=== PATIENT | female | born 1940 | race Caucasian/White ===

== ENCOUNTER → 2022-06-19 09:19 | Outpatient (CLI) | payer MEDICARE, SELFPAY ==
--- NOTE | ~2022-06-19 | CT_ITS ---
EXAMINATION: CT brain wo con DATE: 06/19/2022 09:52 INDICATION: Mild cognitive impairment TECHNIQUE: Computed tomography (CT) of the head was performed without intravenous contrast. Sagittal and coronal reconstructions were performed. The mA was adjusted according to patient size. Iterative reconstruction technique was employed. The dose-length product was 599.57 mGy-cm. COMPARISON: None FINDINGS: No acute intracranial hemorrhage, acute infarction or abnormal extra axial fluid collection. There is moderate scattered white matter hypoattenuation consistent with chronic small vessel ischemic diseas e. Symmetric prominence of the sulci and ventricles consistent with mild age-appropriate diffuse cere bral volume loss. No mass/mass effect. Dependently layering mucus in the left sphenoid sinus. The orb its and mastoid air cells are normal. Intracranial calcified cerebral atherosclerosis is noted. IMPRESSION: 1. No acute intracranial process. 2. Age-related changes including mild diffuse volume loss and moderate scattered white matter hypoatt enuation consistent with chronic small vessel ischemic disease. 3. Posteriorly layering mucus in the left sphenoid sinus. Correlate clinically for acute sinusitis. Reviewed, dictated and finalized at location L. IMPRESSION: 1. No acute intracranial process. 2. Age-related changes including mild diffuse volume loss and moderate scattere d white matter hypoattenuation consistent with chronic small vessel ischemic di sease. 3. Posteriorly layering mucus in the left sphenoid sinus. Correlate clinically for acute sinusitis.
== END ==
PROVIDERS: PCP Internal Medicine; Visit Provider Internal Medicine
DX: G31.84 Mild cognitive impairment of uncertain or unknown etiology (principal); R93.0 Abnormal findings on diagnostic imaging of skull and head, not elsewhere classified
CPT/HCPCS: 70450

== ENCOUNTER 2023-08-10 18:13 | Emergency (ER) | payer MEDICARE, SELFPAY ==
--- NOTE | ~2023-08-10 | XR_ITS ---
EXAMINATION: XR ribs LT 2V w CXR 2V Exam Date/Time: 08/10/2023 21:47 CDT HISTORY: pain status post fall Comparison: None. RESULT: Lines, tubes, and devices: None. Lungs and pleura: Senescent/emphysematous change, otherwise clear. Cardiothymic silhouette: Stable. Other: No acute osseous or upper abdominal finding. Decreased mineralization. IMPRESSION: No acute cardiopulmonary process. No acute osseous finding in the ribs. Reviewed, dictated and finalized at location K.
[2023-08-10 18:15] VITALS: BP 189/77; PULSE 81; RESP 14; TEMP 36.4; O2SAT 100
[2023-08-10] MEDS: HYDROcodone/acetaminophen (*CRX) 5-325 MG TABLET 1 TAB PO (21:59)
--- NOTE | 2023-08-10 22:29 | ED.GENADULT ---
HPI - General Adult General Chief complaint: Fall Stated complaint: fall Time Seen by Provider: 08/10/23 21:36 History of Present Illness HPI narrative: Patient is a 82-year-old female who presents emergency department with chief complaint of left-sided chest wall pain. Patient reports that she had a ground level fall and reports that she struck the left side of her chest. The patient reports she has pain with inspiration and pain with movement. Patient states she is concerned that she may have rib fracture. The patient reports she was ambulatory after the fall. Patient denies head injury denies loss of consciousness denies being on blood thinners. Related Data Allergies Allergy/AdvReac Type Severity Reaction Status Date / Time Contrast Media Allergy Unknown RASH Uncoded 08/10/23 18:14 Shrimp Allergy Unknown RASH Uncoded 08/10/23 18:14 Review of Systems Review of Systems: A 10 system review of systems was completed on the patient and is negative except for what is stated in the HPI. Nursing and ancillary documentation was reviewed. Exam Narrative: GENERAL: Well-appearing, well-nourished, and in no acute distress. HEAD: Normocephalic, atraumatic. EYES: PERRLA and EOMI. ENT: Nares clear, no rhinorrhea or epistaxis. Mucous membranes moist. NECK: Supple. CHEST: Clear to auscultation. No respiratory distress. Tenderness to palpation in the anterior and lateral chest wall on the left side no crepitance noted HEART: Regular rate and rhythm. No murmur heard. Normal peripheral pulses. ABDOMEN: Soft, nontender, nondistended, normal active bowel sounds. EXTREMITIES: Normal range of motion. No edema. SKIN: Warm, dry, no rash. NEURO: No focal deficits. Alert and oriented x3. PSYCH: Normal mood and affect. Course Vital Signs Vital signs: Vital Signs Temperature 36.4 C L 08/10/23 18:15 Pulse Rate 81 08/10/23 18:15 Respiratory Rate 14 08/10/23 18:15 Blood Pressure 189/77 H 08/10/23 18:15 Pulse Oximetry 100 08/10/23 18:15 Oxygen Delivery Room Air 08/10/23 18:15 Temperature 36.4 C L 08/10/23 18:15 Pulse Rate 81 08/10/23 18:15 Respiratory Rate 14 08/10/23 18:15 Blood Pressure 189/77 H 08/10/23 18:15 Pulse Oximetry 100 08/10/23 18:15 Oxygen Delivery Room Air 08/10/23 18:15 Medical Decision Making MDM Narrative Medical decision making narrative: Differential diagnosis includes rib fracture, rib contusion Rib x-ray showed no evidence of displaced rib fractures and no evidence of pneumothorax. Patient was given some additional pain control in the emergency department and will be discharged home with a prescription for tramadol the patient will also be given an incentive spirometer Vital Signs Vital Signs: Vital Signs Temperature 36.4 C L 08/10/23 18:15 Pulse Rate 81 08/10/23 18:15 Respiratory Rate 14 08/10/23 18:15 Blood Pressure 189/77 H 08/10/23 18:15 Pulse Oximetry 100 08/10/23 18:15 Oxygen Delivery Room Air 08/10/23 18:15 Temperature 36.4 C L 08/10/23 18:15 Pulse Rate 81 08/10/23 18:15 Respiratory Rate 14 08/10/23 18:15 Blood Pressure 189/77 H 08/10/23 18:15 Pulse Oximetry 100 08/10/23 18:15 Oxygen Delivery Room Air 08/10/23 18:15 Discharge Plan Discharge Clinical Impression: Chest wall contusion, Fall from ground level Patient Disposition: Home, Self-Care Condition: Stable Instructions: Antibiotic Form, Rib Contusion (ED) Prescriptions: New tramadol 50 mg tablet 50 mg PO Q6H PRN (Reason: pain) Qty: 12 0RF Follow-up/Referrals: Clemente,Alfa Langston MD [Primary Care Provider] - Time of Disposition: 22:35
== END 2023-08-10 23:00 | disposition home or self-care (01) ==
LOC: ANHED 22:45
PROVIDERS: Emergency Provider Emergency Medicine; PCP Internal Medicine
DX: S20.219A Contusion of unspecified front wall of thorax, initial encounter (principal); W01.0XXA Fall on same level from slipping, tripping and stumbling without subsequent striking against object, initial encounter
CPT/HCPCS: 71046; 71100; 99283; A9270

== ENCOUNTER 2023-11-11 22:35 | Observation (INO) | payer MEDICARE, SELFPAY ==
--- NOTE | ~2023-11-11 | XR_ITS ---
XR chest 1V portable Ordering provider: Nilesh Washington MD History: 82 years Female with . weakness HEADACHE . Comparison: August 10, 2023 FINDINGS: MEDIASTINUM: The cardiac silhouette is not enlarged. LUNGS: No infiltrates, effusions or pneumothorax. OTHER: No free air under the diaphragm. IMPRESSION: No acute cardiopulmonary pathology. Reviewed, dictated and finalized at location A.
--- NOTE | ~2023-11-11 | CT_ITS ---
CT brain wo con Ordering provider: Nilesh Washington MD History: 82 years Female with . altered mental status . Comparison: June 19, 2022 Technique: CT of the head without contrast. Radiation reduction technique utilized. The dose-length product was 529.67 mGy-cm. FINDINGS: BRAIN PARENCHYMA AND CSF SPACES: Mild leukoaraiosis and diffuse cortical atrophy. Mild atheromatous d isease. No midline shift, mass effect or hemorrhage. The brain parenchyma and CSF spaces are otherwi se normal. VISUALIZED PARANASAL SINUSES: Right maxillary and left sphenoid sinus disease. MASTOIDS: Well aerated. BONES: The bones appear intact. SOFT TISSUES: Visualized nasopharynx is normal. Superficial soft tissues are normal. IMPRESSION: No acute intracranial findings. Reviewed, dictated and finalized at location A.
[2023-11-11 22:38] VITALS: BP 174/76; PULSE 70; RESP 15; TEMP 37.1; O2SAT 98
--- NOTE | 2023-11-11 22:38 | ECG_ITS ---
Test Date: 2023-11-11 22:59:21 Measurements Intervals [place] Rate: 68 P: 45 [place]: 165 QRS: 17 QRSD: 93 T: 54 QT: 403 QTc: 431 Interpretive Statements SINUS RHYTHM NORMAL ELECTROCARDIOGRAM No previous ECG available for comparison Electronically Signed On 11-12-2023 07:20:52 CDT by Victor Hugo Griffiths M.D.
--- NOTE | 2023-11-11 22:52 | PC.NURSE ---
blood sugar was 150 at this time
[2023-11-11 22:53] VITALS: PULSE 70
--- NOTE | 2023-11-11 22:56 | ED.GENADULT ---
HPI - General Adult General Chief complaint: Weakness Stated complaint: altered mental status Time Seen by Provider: 11/11/23 22:38 History of Present Illness HPI narrative: Patient 82-year-old female who presents emergency department with chief complaint of altered mental status patient is from the [facility]. Per the facility the patient became confused and could not answer questions appropriately normally the patient is alert and oriented patient had no unilateral weakness but did have global weakness. Patient states that upon arrival the emergency department she is starting to feel better patient denies chest pain denies shortness of breath Related Data Allergies Allergy/AdvReac Type Severity Reaction Status Date / Time Contrast Media Allergy Unknown RASH Uncoded 08/10/23 18:14 Shrimp Allergy Unknown RASH Uncoded 08/10/23 18:14 Review of Systems Review of Systems: A 10 system review of systems was completed on the patient and is negative except for what is stated in the HPI. Nursing and ancillary documentation was reviewed. Exam Narrative: GENERAL: Well-appearing, well-nourished, and in no acute distress. HEAD: Normocephalic, atraumatic. EYES: PERRLA and EOMI. ENT: Nares clear, no rhinorrhea or epistaxis. Mucous membranes moist. NECK: Supple. CHEST: Clear to auscultation. No respiratory distress. HEART: Regular rate and rhythm. No murmur heard. Normal peripheral pulses. ABDOMEN: Soft, nontender, nondistended, normal active bowel sounds. EXTREMITIES: Normal range of motion. No edema. SKIN: Warm, dry, no rash. NEURO: No focal deficits. Alert and oriented x1. PSYCH: Normal mood and affect. Course Vital Signs Vital signs: Vital Signs Temperature 37.1 C 11/11/23 22:38 Pulse Rate 70 11/11/23 22:38 Respiratory Rate 15 11/11/23 22:38 Blood Pressure 174/76 H 11/11/23 22:38 Pulse Oximetry 98 11/11/23 22:38 Oxygen Delivery Room Air 11/11/23 22:38 Temperature 37.1 C 11/11/23 22:38 Pulse Rate 70 11/11/23 22:53 Respiratory Rate 15 11/11/23 22:38 Blood Pressure 174/76 H 11/11/23 22:38 Pulse Oximetry 98 11/11/23 22:38 Oxygen Delivery Room Air 11/11/23 22:38 Medical Decision Making MDM Narrative Medical decision making narrative: Differential diagnosis includes dementia, altered mental status, electrolyte abnormality, infection, Laboratory studies were obtained showed no acute abnormality CT head showed no evidence of acute intracranial pathology urinalysis showed no evidence UTI chest x-ray showed no focal infiltrate Vital Signs Vital Signs: Vital Signs Temperature 37.1 C 11/11/23 22:38 Pulse Rate 70 11/11/23 22:38 Respiratory Rate 15 11/11/23 22:38 Blood Pressure 174/76 H 11/11/23 22:38 Pulse Oximetry 98 11/11/23 22:38 Oxygen Delivery Room Air 11/11/23 22:38 Temperature 37.1 C 11/11/23 22:38 Pulse Rate 70 11/11/23 22:53 Respiratory Rate 15 11/11/23 22:38 Blood Pressure 174/76 H 11/11/23 22:38 Pulse Oximetry 98 11/11/23 22:38 Oxygen Delivery Room Air 11/11/23 22:38 Lab Data 11/11/23 22:54 11/11/23 22:54 Labs: Lab Results 11/11/23 11/11/23 11/12/23 Range/Units 22:51 22:54 02:05 WBC 5.8 (4.5-10.0) K/mm3 RBC 4.48 (4.2-5.4) M/mm3 Hgb 14.5 (12.0-15.0) g/dL Hct 43.3 (37.0-47.0) % MCV 96.7 (80-100) fl MCH 32.4 (26-34) pg MCHC 33.5 (32-36) g/dl RDW 12.3 (11.5-14.5) % Plt Count 180 (150-375) k/mm3 MPV 10.2 (7.4-10.4) fl Immature Gran % (Auto) 0.3 (0-0.5) % Neut % (Auto) 54.0 (45.5-73.1) % Lymph % (Auto) 33.3 (18.3-44.2) % [place] % (Auto) 9.2 H (2.6-8.5) % Eos % (Auto) 2.3 (0-4.4) % Baso % (Auto) 0.9 (0.2-1.2) % Lymph # (Auto) 1.92 (0.9-3.2) K/mm3 [place] # (Auto) 0.5 (0.1-0.6) K/mm3 Eos # (Auto) 0.1 (0-0.3) K/mm3 Baso # (Auto) 0.1 (0.0-0.1) K/mm
[2023-11-11 22:59] LABS: Glucose Point of Care 150 mg/dl (65-105)
[2023-11-11 23:00] VITALS: BP 163/89; PULSE 68; RESP 12; O2SAT 95
[2023-11-11 23:02] LABS: Basophils Absolute Auto 0.1 K/mm3 (0.0-0.1); Basophils Percent Auto 0.9 % (0.2-1.2); Eosinophils Absolute Auto 0.1 K/mm3 (0-0.3); Eosinophils Percent Auto 2.3 % (0-4.4); Hematocrit 43.3 % (37.0-47.0); Hemoglobin 14.5 g/dL (12.0-15.0); Immature Granulocyte Absolute 0.02 K/mm3 (0.00-0.031); Immature Granulocyte Percent A 0.3 % (0-0.5); Lymphocytes Absolute Auto 1.92 K/mm3 (0.9-3.2); Lymphocytes Percent Auto 33.3 % (18.3-44.2); Mean Corpuscular HGB Conc 33.5 g/dl (32-36); Mean Corpuscular Hemoglobin 32.4 pg (26-34); Mean Corpuscular Volume 96.7 fl (80-100); Mean Platelet Volume 10.2 fl (7.4-10.4); Monocytes Absolute Auto 0.5 K/mm3 (0.1-0.6); Monocytes Percent Auto 9.2 % (2.6-8.5); Neutrophils Absolute Auto 3.1 K/mm3 (1.3-6.7); Platelet Count Result 180 k/mm3 (150-375); Red Blood Count 4.48 M/mm3 (4.2-5.4); Red Cell Distribution Width 12.3 % (11.5-14.5); White Blood Count 5.8 K/mm3 (4.5-10.0)
[2023-11-11] MEDS: SODIUM CHLORIDE 0.9% IV 1,000 ML 999 ML IV CONT (23:05)
[2023-11-11 23:11] LABS: Add Urine Microscopic? YES; Appearance Urine Clear (Clear); Bacteria Urine None Seen /hpf; Bilirubin Urine Negative (Negative); Blood Urine Negative (Negative); Color Urine Yellow (Yellow); Glucose Urine UA Negative (Negative); Ketones Urine Negative (Negative); Leukocyte Esterase Ur Trace LEU/UL (Negative); Nitrate Urine Negative (Negative); Non Pathogenic Casts 0-2; Protein Urine Negative (Negative); RBC Urine 0-2 /hpf (0-2); Specific Grav Ur 1.005 (1.001-1.035); Squamous Epithelial Cell Urine None Seen /hpf (Few); Urobilinogen Urine 0.2 mg/dL (<2.0); WBC Urine 0-5 /hpf (0-3); pH Urine 7.5 (5.0-9.0)
[2023-11-11 23:13] LABS: INR 0.9; Prothrombin Time 12.2 Seconds (11.1-14.7)
[2023-11-11 23:14] LABS: Partial Thromboplastin Time 25.9 Seconds (22.3-36.8)
[2023-11-11 23:15] LABS: Alanine Aminotransferase 19 U/L (6-35); Albumin Level 4.5 g/dL (3.5-5.1); Alkaline Phosphatase 62 U/L (38-126); Anion Gap 12 mmol/L (4-12); Aspartate Amino Transferase 26 U/L (14-36); Bilirubin,Total 0.6 mg/dL (0.2-1.3); Blood Urea Nitrogen 24 mg/dL (7-17); Calcium 9.4 mg/dL (8.4-10.2); Carbon Dioxide 23 mmol/L (22-30); Chloride 103 mmol/L (98-107); Estimated CRCL calculation 37 ml/min; Estimated Glomerular Filt Rate > 60; Glucose 150 mg/dL (65-110); Potassium 4.2 mmol/L (3.4-5.0); Sodium 138 mmol/L (137-145)
[2023-11-11 23:16] LABS: Lactic Acid Reflex 1.3 mmol/L (0.7-2.0)
[2023-11-11 23:18] LABS: Magnesium 1.9 mg/dL (1.6-2.3)
[2023-11-11 23:31] LABS: Troponin I 0.025 ng/mL (0.000-0.034)
[2023-11-11 23:44] LABS: Influenza A QL RT-PCR Negative (Negative); Influenza B QL RT-PCR Negative (Negative); RSV RNA, RT-PCR Negative (Negative); SARS-CoV-2 RNA PCR Negative (Negative)
[2023-11-12] VITALS (9 sets, daily range): BP systolic 158–173; BP diastolic 66–81; PULSE 66–84; RESP 10–20; TEMP 36.6; O2SAT 95–100; BMI 19.4
--- NOTE | 2023-11-12 01:40 | PC.NURSE ---
pure wick placed on pt at this time. Full Linen change, depend changed.
[2023-11-12] MEDS: ACETAMINOPHEN 500 MG TABLET 1000 MG PO (02:00)
--- NOTE | 2023-11-12 02:10 | ECG_ITS ---
Test Date: 2023-11-12 02:10:45 Measurements Intervals [place] Rate: 67 P: 32 [place]: 143 QRS: 17 QRSD: 94 T: 60 QT: 404 QTc: 427 Interpretive Statements SINUS RHYTHM NORMAL ELECTROCARDIOGRAM Compared to ECG 11/11/2023 22:59:21 No significant changes Electronically Signed On 11-13-2023 13:22:26 CDT by Victor Hugo Griffiths M.D.
[2023-11-12 02:37] LABS: Troponin I 0.025 ng/mL (0.000-0.034)
--- NOTE | 2023-11-12 02:47 | PC.NURSE ---
K @ [facility]
--- NOTE | 2023-11-12 05:53 | ADMGEN ---
This patient, Claudia Hernandez, was admitted to Medical Room 346-01. Patient/family oriented to hospital policies and general routines including ID bracelet, bed and alarms, visiting hours, pain management, procedures, bathroom and other care routines, personal items, smoking policy, room service/diet, and visiting hours. Information on how to activate the Rapid Response Team has been discussed. Patient/Family are encouraged to report perceived risks to care and to ask questions if they do not understand what they are told or what they should do.
--- NOTE | 2023-11-12 06:48 | PM.IMHP ---
H&P: HPI History of Present Illness Date/Time: 11/12/23 06:48 Chief Complaint: altered mental status Narrative: 82 year old female with past medical history of diabetes, HLD, and HTN presents to the hospital from [facility] for altered mental status. ED workup: CBC unremarkable. CMP unremarkable. Coags WNL. Lactic acid 1.3. Troponin WNL. Procal 0.0. Urinalysis nonconcerning for infection. Negative Flu/Covid/RSV. Chest XR: No acute cardiopulmonary pathology. Head CT: No acute intracranial findings. Blood cultures pending. [facility] Past Medical History Medical History (Updated 11/12/23 @ 07:08 by Magaly Barber PA-C) Essential hypertension Hyperlipidemia Type 2 diabetes mellitus Family History Family History (Updated 11/12/23 @ 06:06 by Leslye Etienne RN) Other Unknown family medical history Social History Social History Smoking status: Never smoker Alcohol intake: never Substance use: never Substance use type: does not use Do You Feel Safe in your Home?: Yes Lack of Transportation: No Lack of Food: Never True Current Housing: I Have Housing Concerned About Future Housing: No Difficulty Paying Gas/Electric Bills: No Difficulty Paying for Meds: No Currently Unemployed: No Education: High School Diploma/GED Difficulty w/ Childcare or Family Care: No Spiritual care concerns: No Meds Home Medications and Allergies Home Medications Medication Instructions Recorded Confirmed Type amlodipine 10 mg tablet 10 mg PO DAILY 11/12/23 11/12/23 History atorvastatin 10 mg tablet 10 mg PO DAILY 11/12/23 11/12/23 History cholecalciferol (vitamin D3) 25 25 mcg PO DAILY 11/12/23 11/12/23 History mcg (1,000 unit) tablet cyanocobalamin (vitamin B-12) 500 500 mcg PO DAILY 11/12/23 11/12/23 History mcg tablet donepezil 5 mg tablet 5 mg PO DAILY 11/12/23 11/12/23 History glimepiride 1 mg tablet 1 mg PO DAILY 11/12/23 11/12/23 History metformin 500 mg tablet 500 mg PO BID 11/12/23 11/12/23 History vitamin E (dl, acetate) 180 mg 180 mg PO DAILY 11/12/23 11/12/23 History (400 unit) capsule Allergies Allergy/AdvReac Type Severity Reaction Status Date / Time Contrast Media Allergy Unknown RASH Uncoded 08/10/23 18:14 Shrimp Allergy Unknown RASH Uncoded 08/10/23 18:14 Vital Signs Vital Signs - 24 hr 11/11/23 22:38 11/11/23 22:53 11/12/23 05:00 Temperature 98.7 F Pulse Rate 70 70 71 Respiratory Rate 15 15 Blood Pressure 174/76 H 159/72 H Pulse Oximetry 98 96 Oxygen Delivery Room Air 11/12/23 04:00 11/12/23 03:00 11/12/23 02:00 Temperature Pulse Rate 80 74 75 Respiratory Rate 14 11 L 16 Blood Pressure 173/74 H 158/71 H 166/81 H Pulse Oximetry 96 97 97 Oxygen Delivery 11/12/23 01:00 11/12/23 00:00 11/11/23 23:00 Temperature Pulse Rate 66 70 68 Respiratory Rate 10 L 16 12 Blood Pressure 164/72 H 170/78 H 163/89 H Pulse Oximetry 98 96 95 Oxygen Delivery 11/12/23 05:31 11/12/23 05:45 11/12/23 06:00 Temperature 97.9 F Pulse Rate 84 72 Respiratory Rate 17 20 Blood Pressure 159/72 H 173/77 H Pulse Oximetry 95 100 Oxygen Delivery Room Air Exam Narrative: AF General: well nourished, well-developed female in no acute respiratory distress who is nontoxic appearing, lying semi recumbent in bed. HEENT: Normocephalic. Atraumatic. Pupils equal round reactive to light. Extraocular movement intact. Sclera clear and anicteric. Nares patent. No oral lesions. Moist mucous membranes. Tongue is midline. Palate padmaja symmetrically. No facial asymmetry. Neck: Neck was supple. No dominant adenopathy, thyromegaly or masses. 2+ carotid upstrokes without bruits. Chest: Lungs are clear to auscultation bilaterlly. No wheezes or crackles. CV: Heart was regular rate and rhythm. S1-S2. No murmurs, gallops, or rubs. Abd: Abdomen was soft. Nontender. Nondistended. P
[2023-11-12 07:50] LABS: Alanine Aminotransferase 17 U/L (6-35); Albumin Level 4.2 g/dL (3.5-5.1); Alkaline Phosphatase 64 U/L (38-126); Anion Gap 11 mmol/L (4-12); Aspartate Amino Transferase 23 U/L (14-36); Bilirubin,Total 0.7 mg/dL (0.2-1.3); Blood Urea Nitrogen 16 mg/dL (7-17); Calcium 9.1 mg/dL (8.4-10.2); Carbon Dioxide 26 mmol/L (22-30); Chloride 103 mmol/L (98-107); Estimated CRCL calculation 41 ml/min; Estimated Glomerular Filt Rate > 60; Glucose 185 mg/dL (65-110); Sodium 140 mmol/L (137-145)
[2023-11-12 08:00] LABS: Glucose Point of Care 171 mg/dl (65-105)
[2023-11-12 08:01] LABS: Basophils Percent Auto 0.7 % (0.2-1.2); Eosinophils Absolute Auto 0.1 K/mm3 (0-0.3); Eosinophils Percent Auto 1.3 % (0-4.4); Hemoglobin 14.7 g/dL (12.0-15.0); Immature Granulocyte Absolute 0.01 K/mm3 (0.00-0.031); Immature Granulocyte Percent A 0.2 % (0-0.5); Lymphocytes Absolute Auto 0.96 K/mm3 (0.9-3.2); Lymphocytes Percent Auto 21.3 % (18.3-44.2); Mean Corpuscular HGB Conc 32.7 g/dl (32-36); Mean Corpuscular Hemoglobin 31.4 pg (26-34); Mean Corpuscular Volume 96.2 fl (80-100); Mean Platelet Volume 10.6 fl (7.4-10.4); Monocytes Absolute Auto 0.4 K/mm3 (0.1-0.6); Monocytes Percent Auto 8.4 % (2.6-8.5); Neutrophils Absolute Auto 3.1 K/mm3 (1.3-6.7); Neutrophils Percent Auto 68.1 % (45.5-73.1); Platelet Count Result 184 k/mm3 (150-375); Red Blood Count 4.68 M/mm3 (4.2-5.4); Red Cell Distribution Width 12.3 % (11.5-14.5); White Blood Count 4.5 K/mm3 (4.5-10.0)
[2023-11-12 08:11] LABS: Hemoglobin A1C 6.8 % (<5.7)
[2023-11-12] MEDS: GLIMEPIRIDE 1 MG TABLET PO (09:34)
[2023-11-12] MEDS: amLODIPine BESYLATE 10 MG TABLET PO (09:34)
[2023-11-12] MEDS: DONEPEZIL HCL 5 MG TABLET PO (09:34)
[2023-11-12] MEDS: CHOLECALCIFEROL 1,000 UNITS TABLET 1000 UNITS PO (09:34)
[2023-11-12] MEDS: ATORVASTATIN 10 MG TABLET PO (09:34)
[2023-11-12] MEDS: VITAMIN E 400 UNIT CAPSULE PO (09:34)
[2023-11-12] MEDS: CYANOCOBALAMIN 500 MCG TABLET PO (09:34)
[2023-11-12] MEDS: ENOXAPARIN 40 MG/0.4 ML SYRINGE SUB-Q (09:36)
[2023-11-12] MEDS: ACETAMINOPHEN 325 MG TABLET 650 MG PO (12:07)
[2023-11-12 12:08] LABS: Glucose Point of Care 297 mg/dl (65-105)
--- NOTE | 2023-11-12 12:16 | PC.NURSE ---
Family does not want an MRI done at this time. Hospitalist made aware.
[2023-11-12] MEDS: INSULIN ASPART (*BKC) 100 UNITS/ML SUB-Q (12:51)
--- NOTE | 2023-11-12 14:13 | PM.SD2 ---
Same Day Admit/Disch: HPI History of Present Illness Chief complaint: Altered mental status Narrative: Claudia Hernandez is a 82 year old female with past medical history of diabetes, HLD, and HTN presents to the hospital from [facility] for altered mental status. Called [facility] and they state that they found patient in the hallway, altered, not talking/possible slurred speech and unable to stand from a chair. They deny any unilateral weakness or facial droop. These symptoms prompted the facility to have patient come to the hospital. When patient arrived to the ED she was alert and oriented x1 without focal deficits or slurred speech. On assessment of patient she is now alert and oriented x 2-3 (baseline) without slurred speech. Unable to obtain a clear history from patient. She was able to say that she was walking to meet a friend when she had a mechanical fall. She denies hitting her head, LOC, or dizziness/lightheadedness prior to the fall. Patient states she was able to get herself up immediately after the fall. Discussed this with [facility] and they were unaware of patients fall. Per patient she does not remember being outside of another residents room or having difficulty standing. Discussed patient with both her son, jamey and daughter/POHelder Palma and they state that the patient will become intermittently more confused. They relate this to her blood glucose, stating that patient does not always eat enough and will have low blood glucose levels. They were interested in decreasing patients diabetes medication dosages. Patients glucose levels are currently elevated on the glimepiride and low dose insulin. Her a1c is 6.8 on her home regimen. Told the Minerva and Jamey that patient will need to follow up with her PCP in regards to the diabetes medications. They state understanding. Prior to discharge patient denies chest pain, shortness of breath, palpitations, nausea/vomiting and changes in bowel/bladder. She was able to ambulate throughout her room and down the fernandes independently without assistive devices. ED workup: Patient was afebrile with CBC and CMP that were unremarkable. Coagulation panel was WNL. Lactic acid was 1.3. Troponins were WNL. Procal negative. Urinalysis was nonconcerning for infection. Negative Flu/Covid/RSV. Chest XR: No acute cardiopulmonary pathology. Head CT: No acute intracranial findings. Blood cultures pending. Was planning to obtain a MRI to further evaluate, but after discussing with patients son, Jamey and daughter/POHelder Palma they decided to not pursue further imaging. [facility] Past Medical History Medical History (Updated 11/12/23 @ 14:42 by Magaly Barber PA-C) Essential hypertension Hyperlipidemia Type 2 diabetes mellitus Family History Family History (Updated 11/12/23 @ 06:06 by Leslye Etienne RN) Other Unknown family medical history Social History Social History (Updated 11/12/23 @ 14:56 by Magaly Barber PA-C) Social History: Patient is a . Has 3 children. Lives at [facility]. Years smoked: 3 Smoking status: Former smoker Tobacco type: cigarettes Second hand tobacco smoke exposure: No Alcohol intake: never Substance use: never Substance use type: does not use Do You Feel Safe in your Home?: Yes Lack of Transportation: No Lack of Food: Never True Current Housing: I Have Housing Concerned About Future Housing: No Difficulty Paying Gas/Electric Bills: No Difficulty Paying for Meds: No Currently Unemployed: No Education: High School Diploma/GED Difficulty w/ Childcare or Family Care: No Living arrangements: assisted living Occupation/Education: retired Gender identity (if verbalized by the patient): Female Sexual Orientation (if Verbalized by the Patient): Straight or Heterosexual Spiritual care concerns: No Same Day Admit/Disch: Med Pre-admit Medications Home Medications Medication Instruction
== END 2023-11-12 16:23 ==
LOC: ANHED 11-12 04:32 → ANH3MED 11-12 05:09
PROVIDERS: Admitting Provider Internal Medicine; Emergency Provider Emergency Medicine; PCP Internal Medicine; Visit Provider Student in an Organized Health Care Education/Training Program
DX: R41.82 Altered mental status, unspecified (principal); I10 Essential (primary) hypertension; E11.9 Type 2 diabetes mellitus without complications; E78.5 Hyperlipidemia, unspecified; Z87.891 Personal history of nicotine dependence; Z79.84 Long term (current) use of oral hypoglycemic drugs; Z20.822 Contact with and (suspected) exposure to COVID-19
CPT/HCPCS: 36415; 70450; 71045; 80053; 81001; 82948; 83036; 83605; 83735; 84145; 84443; 84484; 85025; 85610; 85730; 87040; 87077; 87181; 87637; 93005; 96360; 96361; 96372; 99285; A9270; G0378; J1650; J1815; J7030

== ENCOUNTER 2024-03-30 16:39 | Emergency (ER) | payer MEDICARE, SELFPAY ==
--- NOTE | ~2024-03-30 | XR_ITS ---
EXAMINATION: XR knee RT 3V DATE: 03/30/2024 17:14 INDICATION: Right knee pain. Fall. TECHNIQUE: 3 views of right knee were obtained. COMPARISON: None. FINDINGS: Bone alignment is normal. No fracture. There is mild osteoarthritis of medial and patellofe moral compartments. No knee joint effusion. IMPRESSION: 1. Mild right knee osteoarthritis. Reviewed, dictated and finalized at location A. ASSET MANAGER
--- NOTE | ~2024-03-30 | XR_ITS ---
EXAMINATION: XR hand LT min 3V DATE: 03/30/2024 17:14 INDICATION: Left hand pain. TECHNIQUE: 3 views of left hand were obtained. COMPARISON: None. FINDINGS: Alignment is normal. No fracture. There is mild osteoarthritis of first carpometacarpal vianey nt and first interphalangeal joint. There is mild osteoarthritis of second proximal interphalangeal j oint. IMPRESSION: 1. Polyarticular osteoarthritis. Reviewed, dictated and finalized at location A. TORIAL SPECIALIST
--- NOTE | ~2024-03-30 | XR_ITS ---
EXAMINATION: XR wrist LT min 3V DATE: 03/30/2024 17:14 INDICATION: Left wrist pain. Fall. TECHNIQUE: 4 views of left wrist were obtained. COMPARISON: None. FINDINGS: Alignment is normal. No fracture. There is mild osteoarthritis of first carpometacarpal vianey nt. IMPRESSION: 1. Mild osteoarthritis of first carpometacarpal joint. Reviewed, dictated and finalized at location A. DOWN PLANNER
--- NOTE | ~2024-03-30 | XR_ITS ---
EXAMINATION: XR knee LT 3V DATE: 03/30/2024 17:14 INDICATION: Left knee pain. TECHNIQUE: 3 views of left knee were obtained. COMPARISON: None. FINDINGS: Alignment is normal. No fracture. There is mild osteoarthritis of patellofemoral compartmen t contrast by a tiny osteophyte. No knee joint effusion. IMPRESSION: 1. Mild left knee osteoarthritis. Reviewed, dictated and finalized at location A. EPOINT ADMINISTRATOR
--- NOTE | ~2024-03-30 | XR_ITS ---
EXAMINATION: XR elbow LT 2V DATE: 03/30/2024 17:14 INDICATION: Left elbow pain. Fall. TECHNIQUE: 2 views of left elbow were obtained. COMPARISON: None. FINDINGS: Alignment is normal. No fracture. Joint spaces are normal. There is an enthesophyte at late ral humeral epicondyle. No elbow joint effusion. IMPRESSION: 1. No fracture. Reviewed, dictated and finalized at location A. SETTER FOURDRINIER IMPRESSION: 1. No fracture.
[2024-03-30 16:44] VITALS: BP 164/70; PULSE 76; RESP 16; TEMP 36.8; O2SAT 100
--- NOTE | 2024-03-30 18:01 | ED.FALL ---
HPI - Fall General Chief Complaint: Fall Stated Complaint: fall Time Seen by Provider: 03/30/24 17:52 Source: patient Mode of arrival: ambulatory Limitations: no limitations History of Present Illness HPI Narrative: 83 YEARS OLD WHITE FEMALE REPORTS TRIPPING AND FALLING AT THE SIDEWALK, COMPLAINING OF LEFT HAND, LEFT WRIST AND LEFT ELBOW PAIN, PATIENT LANDED ON BOTH KNEES, DENIES HEAD INJURY OR NECK INJURY OR BACK INJURY. PATIENT CAME TO THE ED BY A BUS Related Data Home Medications ?Medication ?Instructions ?Recorded ?Confirmed ?Last Taken ?Type amlodipine 10 mg tablet 10 mg PO DAILY 11/12/23 11/12/23 Unknown History atorvastatin 10 mg tablet 10 mg PO DAILY 11/12/23 11/12/23 Unknown History cholecalciferol (vitamin D3) 25 25 mcg PO DAILY 11/12/23 11/12/23 Unknown History mcg (1,000 unit) tablet cyanocobalamin (vitamin B-12) 500 500 mcg PO DAILY 11/12/23 11/12/23 Unknown History mcg tablet donepezil 5 mg tablet 5 mg PO DAILY 11/12/23 11/12/23 Unknown History glimepiride 1 mg tablet 1 mg PO DAILY 11/12/23 11/12/23 Unknown History metformin 500 mg tablet 500 mg PO BID 11/12/23 11/12/23 Unknown History vitamin E (dl, acetate) 180 mg 180 mg PO DAILY 11/12/23 11/12/23 Unknown History (400 unit) capsule Allergies Allergy/AdvReac Type Severity Reaction Status Date / Time Contrast Media Allergy Unknown RASH Uncoded 08/10/23 18:14 Shrimp Allergy Unknown RASH Uncoded 08/10/23 18:14 Review of Systems Review of Systems: All systems reviewed & are unremarkable except as noted in HPI and below PMFSH Past Medical History Medical History Type 2 diabetes mellitus Hyperlipidemia Essential hypertension Family History Family History Other Unknown family medical history Social History Social History Social History: Patient is a . Has 3 children. Lives at [facility]. Years smoked: 3 Smoking status: Former smoker Tobacco type: cigarettes Second hand tobacco smoke exposure: No Alcohol intake: never Substance use: never Substance use type: does not use Do You Feel Safe in your Home?: Yes Lack of Transportation: No Lack of Food: Never True Current Housing: I Have Housing Concerned About Future Housing: No Difficulty Paying Gas/Electric Bills: No Difficulty Paying for Meds: No Currently Unemployed: No Education: High School Diploma/GED Difficulty w/ Childcare or Family Care: No Living arrangements: assisted living Occupation/Education: retired Gender identity (if verbalized by the patient): Female Sexual Orientation (if Verbalized by the Patient): Straight or Heterosexual Spiritual care concerns: No Exam Narrative: GENERAL APPEARANCE: WELL-DEVELOPED, WELL-NOURISHED SKIN: NORMAL COLOR HEAD: NORMOCEPHALIC, NONTRAUMATIC EYES: CLEAR CONJUNCTIVA ENT: OROPHARYNX NORMAL, EARS NORMAL, NOSE NORMAL NECK: SUPPLE, NONTENDER CHEST AND RESPIRATORY: AIRWAY PATENT, NO RESPIRATORY DISTRESS, NO ACCESSORY MUSCLE USE HEART: REGULAR RATE/RHYTHM ABDOMEN: SOFT, NONTENDER, NO ORGANOMEGALY, QUIET BOWEL SOUNDS VASCULAR: NORMAL PERIPHERAL PULSES, NORMAL CAPILLARY REFILL. MUSCULOSKELETAL: BRUISE LEFT HAND, PALMAR SIDE, SLIGHT LIMITED RANGE OF MOTION OF THE LEFT WRIST BECAUSE OF PAIN, NO BRUISES, NO SWELLING NO DEFORMITY, PAIN AT THE LEFT ELBOW POSTERIORLY, WITHOUT ANY BRUISES, SWELLING OR DEFORMITY NEUROLOGIC: ALERT AND ORIENTED ?3, ENGINEERING TEST SPECIALIST IS NORMAL TESTED, NO GROSS MOTOR DEFICIT Course Vital Signs Vital signs: Vital Signs Temperature 36.8 C 03/30/24 16:44 Pulse Rate 76 03/30/24 16:44 Respiratory Rate 16 03/30/24 16:44 Blood Pressure 164/70 H 03/30/24 16:44 Pulse Oximetry 100 03/30/24 16:44 Oxygen Delivery Room Air 03/30/24 16:44 Temperature 36.8 C 03/30/24 16:44 Pulse Rate 76 03/30/24 16:44 Respiratory Rate 16 03/30/24 16:44 Blood Pressure 164/70 H 03/30/24 16:44 Pulse Oximetry 100 03/30/24 16:44 Oxygen Delivery Room Air 03/30/24 16:44 MDM - Fall Imaging Data Radiologist's impression: Impressions Knee X-Ray 03/30/24 17:33 IMPRESSION: 1. Mild left knee osteoarthritis. Knee X-Ray 03/30/24 17:34 IMPRESSION: 1. Mild right knee osteoarthritis. Hand X-Ray 03/30/24 17:35 IMPRESSION: 1. Polyarticular osteoarthritis. Wrist X-Ray 03/30/24 17:35 IMPRESSION: 1. Mild osteoarthritis of first carpometacarpal joint. Elbow X-Ray 03/30/24 17:36 IMPRESSION: 1. No fracture. Critical Care Time Critical Care Time Critical Care Time: No Discharge Plan Discharge Clinical Impression: Fall, Contusion Patient Disposition: Home, Self-Care Condition: Stable Instructions: Contusion in Adults (ED), Fall Prevention (ED) Additional Instructions: RETURN IF SYMPTOMS ARE WORSENING , CALL YOUR FAMILY PHYSICIAN FOR APPOINTMENT, TAKE TYLENOL NEEDED FOR ACHES AND PAIN, CONTINUE HOME MEDICATIONS. Patient Language: Greek Prescriptions: No Action metformin 500 mg tablet 500 mg PO BID donepezil 5 mg tablet 5 mg PO DAILY atorvastatin 10 mg tablet 10 mg PO DAILY glimepiride 1 mg tablet 1 mg PO DAILY cyanocobalamin (vitamin B-12) 500 mcg tablet 500 mcg PO DAILY amlodipine 10 mg tablet 10 mg PO DAILY cholecalciferol (vitamin D3) 25 mcg (1,000 unit) tablet 25 mcg PO DAILY vitamin E (dl, acetate) 180 mg (400 unit) capsule 180 mg PO DAILY Follow-up/Referrals: Cornejo,Alfa Langston MD [Primary Care Provider] -
--- OUTSIDE RECORDS SUMMARY | 2024-04-06 20:27 | XMS_ITS | Continuity of Care Document ---
Author Organization [place] - [facility], [facility] Internal Med [facility] [address] [facility] [address] [place] [address] Assessment No assessment recorded. Plan of Treatment Reminders Order Date Submit Date Provider Last Modified By Organization Details Last Modified Time Details Appointments None recorded . Lab HbA1c (hemoglo bin A1c), blood 024 03/21/20 [facility], [address] [place], [address], 4 04:41:39 lipid panel, serum 024 03/21/20 [facility], [address] [place], [address], 4 04:41:38 CMP, serum or plasma 024 03/21/20 [facility], [address] [place], [address], 4 04:41:39 CBC w/ auto diff 024 03/21/20 [facility], [address] [place], [address], 4 04:41:39 Referral None recorded . Procedures None recorded . Surgeries None recorded . Imaging None recorded . Medication Orders None recorded . Patient TargetsNo targets recorded. Patient Instructions Encounter Date Encounter Id Patient Instructions Last Modified By Organization Details Last Modified Time 03/21/2024 [id number] Follow-up for hypertension, hyperlipidemia, type 2 diabetes and mild dementia. All clinically stable. Has been no significant progression of any medical problems at this time. Is doing quite well according to the daughter. Will continue on current medications. Check blood work consisting of CBC, CMP, lipid and hemoglobin A1c. Continue on current medications follow-up in four months. Follow Up: 4 Months Approximate Date: 07/19/2024 Portions of the record may have been created with voice recognition software. Occasional wrong-word or ? [id number]? substitutions may have occurred due to the inherent limitations of voice recognition software. Read the chart carefully and recognize, using context, where substitutions have occurred. Created: Alfa Cornejo M.D. 03.21.2024 02:08 PM [place] [id number] Not available 03/21/2024 15:08:20 Reason for Referral None Reported. Results Created Date Observation Date Name Description Value Unit Range Abnormal Flag Note LastModifiedBy Organization Detail LastModifiedTime 03/30/20 24 03/30/2024 XR, knee No observ ation record ed. [address], [address], 03/31/2024 06:44:29 03/30/20 24 03/30/2024 XR, knee No observ ation record ed. [address], [address], 03/31/2024 06:45:52 03/30/20 24 03/30/2024 XR, hand No observ ation record ed. [address], [address], 03/31/2024 06:46:14 03/30/20 24 03/30/2024 XR, wrist No observ ation record ed. [address], [address], 03/31/2024 06:46:32 03/30/20 24 03/30/2024 XR, elbow No observ ation record ed. [address], [address], 03/31/2024 06:46:48 Result Notes None recorded. Problems Name Problem SNOMED Code Status Onset Date Resolution Date Notes Provider Name and Address Organization Details Recorded Time Renewal of prescription Active 2021 Not Available [facility] 3 09:16:05 Serum creatinine above reference range 603027764 Active 2021 Not Available [facility] 3 09:16:05 Anterior epistaxis 398712171 Active 2021 Not Available [facility] 3 09:16:05 Ureteric stone 62372809 Active Not Available [facility] 3 09:16:05 Type 2 diabetes mellitus without complication 827576524 Active Not Available [facility] 3 09:16:05 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 Not Available [facility] 3 09:16:05 Cystitis 03905185 Active Not Available [facility] 3 09:16:05 Hyperlipidemi a 18055898 Active Not Available [facility] 3 09:16:05 Essential hypertension 52202323 Active Not Available [facility] 3 09:16:05 Serum vitamin B12 below reference range 006735730 Active 2022 Helena Pittman CMA null, [place] [facility] 3 16:41:38 Anemia 231920041 Active 2022 Ramona Roche null, [place] [facility] 3 15:41:01 Cobalamin deficiency 217416761 Active 2022 Tonja Brown MA null, [place] [facility] 3 12:29:12 Weight loss 80619608 Active 2022 Alfa Cornejo MD [address], [place], [address] , [facility] 3 17:07:55 Dementia 95407991 Active 2022 Alfa Cornejo MD [address], [place], [address] , [facility] 3 11:51:22 Vitamin D deficiency 95996380 Active 2022 Alfa Cornejo MD [address], [place], [address] , [facility] 3 11:55:38 Bacteremia 7940675 Active 2023 Alfa Cornejo MD [address], [place], [address] , [facility] 4 17:02:57 Headache 15183863 Active 2023 Helena Pittman CMA null, [facility] 4 12:39:35 Disturbance in speech 21910710 Active 2023 Helena Pittman CMA null, [facility] 4 14:39:16 Problem Notes None recorded. Procedures Surgical History Date Name Laterality Status Provider Name and Address Organization Details Recorded Time 11/23/19 Medicare Wellness CPT Code, subsequent completed Parisa Zacarias RN [facility] 11/23/2023 14:49:42 Hysterectomy completed Not Available [facility] 06/04/2022 09:14:24 Imaging Results None recorded. Procedure Notes None recorded. Medical Equipment None Reported. Allergies Allergen ID Allergen Name Allergen Category Reaction Reaction Severity Criticality Documentation Date Start Date Code Code System Note Provider Name and Address Organization Details Recorded Time 81631 shellfish derived food,medi cation rash Not available Not available 06/04/2022 Not Available [facility] 3 09:18:41 Medications Name Sig Start Date Stop Date Status Note LastModified by Organization Details LastModified Time metformin 500 mg tablet Take 1 tablet twice a day by oral route. active Not Available Not Available No t Available atorvastati n 20 mg tablet TAKE 1 TABLET BY MOUTH ONCE DAILY 08/31 completed Not Available Not Available Not Available donepezil 5 mg tablet TAKE 1 TABLET BY MOUTH ONCE DAILY active Not Available Not Available No t Available atorvastati n 10 mg tablet Take 1 tablet every day by oral route. active Not Available Not Available No t Available azithromyci n 250 mg tablet Take by oral route.2ta bs first day then 1 daily 02/19 completed Not Available Not Available Not Available ibuprofen 800 mg tablet TAKE 1 TABLET BY MOUTH EVERY 6 TO 8 HOURS WITH FOOD NEEDED FOR PAIN 06/09 completed Not Available Not Available Not Available hydrocodone 5 mg-acetamin ophen 325 mg tablet active Not Available Not Available No t Available Remeron 15 mg tablet Take 1 tablet every day by oral route in the evening. 07/19 completed Not Available Not Available Not Available ciprofloxac in 250 mg tablet active Not Available Not Available Not Available amlodipine 5 mg tablet Take 1 tablet by mouth once daily 07/17 completed Not Available Not Available Not Available valacyclovi r 500 mg tablet TAKE 2 TABLETS BY MOUTH EVERY 8 HOURS 11/14 completed Not Available Not Available Not Available ciprofloxac in 500 mg tablet Take 1 tablet every 12 hours by oral route for 5 days. active Not Available Not Available No t Available sulfamethox azole 800 mg-trimetho prim 160 mg tablet 02/15 completed Not Available Not Available Not Available aspirin 81 mg tablet,amari yed release Take 1 tablet every day by oral route. 03/26 completed Not Available Not Available Not Available tramadol 50 mg tablet TAKE 1 TABLET BY MOUTH EVERY 6 HOURS NEEDED FOR PAIN active Not Available Not Available No t Available acetaminoph en 500 mg tablet Take 2 tablets 3 times a day by oral route as needed. active Not Available Not Available No t Available glimepiride 1 mg tablet TAKE 1 TABLET BY MOUTH ONCE DAILY active Not Available Not Available No t Available cyanocobala min (vit B-12) 500 mcg tablet active Not Available Not Available N ot Available OneTouch Ultra Test strips USE 1 STRIP TO CHECK GLUCOSE TWICE DAILY active Not Available Not Available No t Available meclizine 25 mg tablet active Not Available Not Available Not Available diazepam 2 mg tablet 02/15 completed Not Available Not Available Not Available amlodipine 10 mg tablet TAKE 1 TABLET BY MOUTH ONCE DAILY active Not Available Not Available No t Available cephalexin 500 mg capsule TAKE 1 CAPSULE BY MOUTH THREE TIMES DAILY 06/09 completed Not Available Not Available Not Available cyanocobala min (vit B-12) 1,000 mcg/mL injection solution Inject 1 mL every month by subcutane ous route. 08/31 completed Not Available Not Available Not Available metformin 1,000 mg tablet TAKE 1 TABLET BY MOUTH TWICE DAILY 07/19 completed Not Available Not Available Not Available mupirocin 2 % topical ointment 02/19 completed Not Available Not Available Not Available levofloxaci n 500 mg tablet Take 1 tablet every 24 hours by oral route. active Not Available Not Available No t Available atenolol 50 mg tablet Take 1 tablet by mouth twice daily 07/17 completed Not Available Not Available Not Available vitamin E 268 mg (400 unit) capsule Take 1 capsule every day by oral route. 2018 active Not Available Not Available Not Avai lable naproxen 500 mg tablet Take 1 tablet twice a day by oral route. 03/26 completed Not Available Not Available Not Available Vitamin D3 25 mcg (1,000 unit) capsule Take 1 capsule every day by oral route. 2018 active Not Available Not Available Not Avai lable Crestor 10 mg tablet active Not Available Not Available No t Available escitalopra m 5 mg tablet Take 1 tablet every day by oral route. active Not Available Not Available No t Available Vitamin B-12 take 500 mg daily active Not Available Not Available No t Available Co Q-10 qd 02/19 completed Not Available Not Available Not Available Aspir-81 1 a day 03/21 completed Not Available Not Available Not Available Centrum Silver 1 a day 2012 active Not Available Not Available Not Avai lable Os-Ramakrishna 500 + D3 once daily 02/21 completed Not Available Not Available Not Available Zostavax (PF) 19,400 unit/0.65 mL subcutaneou s suspension active Not Available Not Available N ot Available cholecalcif filipe (vitamin D3) 25 mcg (1,000 unit) tablet 1 a day active Not Available Not Available Not Available vitamin E (dl, acetate) 180 mg (400 unit) capsule active Not Available Not Available Not Available OneTouch Delica Lancets to test blood sugars daily 01/04 completed Not Available Not Available Not Available Grisel Allergy 180 mg tablet Take 1 tablet every day by oral route for 6 days. 11/06 completed Not Available Not Available Not Available cranberry concentrate -ascorbic acid 4,200 mg-20 mg capsule twice a day 02/19 completed Not Available Not Available Not Available OneTouch Ultra Blue Test Strip USE 1 STRIP TO CHECK GLUCOSE ONCE DAILY active Not Available Not Available No t Available OneTouch Delica Plus Lancet 33 gauge USE EACH TO CHECK GLUCOSE ONCE DAILY active Not Available Not Available No t Available Vitals Date Recorded Body height Body weight Heart rate Body temperature Oxygen saturation Oxygen saturation in Arterial blood by Pulse oximetry Systolic blood pressure Diastolic blood pressure Provider Name and Address Organization Details Last Updated DateTime 4 157.48 cm 76528.2 7 g 76 /min 97 [degF] 98 % 98 % 142 mm[Hg] 80 mm[Hg] JOSE CARLOS Hare [place] [facility] 4 14:48:28 Social History Question Answer Notes LastModified by Organizat ion Details LastModified Time Tobacco Smoking Status Never Smoker Not Available [facility] 06/04/2022 09:14:10 Do You Have An Advance Directive? Yes [email or web address] Information not available 11/23/2023 What Is Your Level Of Alcohol Consumption? None MIGRATION.[id number] Information not available 06/04/2022 Are You Blind Or Do You Have Difficulty Seeing? No MIGRATION.591731 7593 Information not available 06/04/2022 In The 14 Days Before Symptom Onset, Have You Had Close Contact With A Laboratory-confir med COVID-19 While That Case Was Ill? No MIGRATION.802053 0546 Information not available 06/04/2022 In The 14 Days Before Symptom Onset, Have You Had Close Contact With A Person Who Is Under Investigation For COVID-19 While That Person Was Ill? No MIGRATION.189089 5661 Information not available 06/04/2022 Are You Deaf Or Do You Have Serious Difficulty Hearing? No MIGRATION.777714 9339 Information not available 06/04/2022 What Type Of Diet Are You Following? DIABETIC MIGRATION.[id number] 4816 Information not available 06/04/2022 Have There Been Any Changes To Your Family Or Social Situation? No MIGRATION.775484 2104 Information not available 06/04/2022 What Is The Fluoride Status Of Your Home? Unknown MIGRATION.695414 3694 Information not available 06/04/2022 Are There Any Guns Present In Your Home? No MIGRATION.305128 9321 Information not available 06/04/2022 Do You Use Insect Repellent Routinely? No MIGRATION.205454 5140 Information not available 06/04/2022 Where Do You Live? Other Asst Living [email or web address] Information not available 11/23/2023 Guns Present In The Home? No [email or web address] Information not available 11/23/2023 Are You Able To Care For Yourself? No [email or web address] Information not available 11/23/2023 Are You Blind Or Do Yo Have Difficulty Seeing? No [email or web address] Information not available 11/23/2023 Are You Deaf Or Do You Have Serious Difficulty Hearing? No [email or web address] Information not available 11/23/2023 Live Alone Of With Others? With Others [email or web address] Information not available 11/23/2023 Do You Have A Medical Power Of Gis Manager? Yes [email or web address] Information not available 11/23/2023 What Was The Date Of Your Most Recent Tobacco Screening? 11/23/2023 [email or web address] Information not available 11/23/2023 Do You Have Any Pets? No MIGRATION.239846 9588 Information not available 06/04/2022 Do You Use Your Seat Belt Or Car Seat Routinely? Yes MIGRATION.669598 9452 Information not available 06/04/2022 Do You Have Smoke And Carbon Monoxide Detectors In Your Home? Yes MIGRATION.386783 8231 Information not available 06/04/2022 Are You Passively Exposed To Smoke? No MIGRATION.502899 4062 Information not available 06/04/2022 Are There Any Smokers In Your House? No MIGRATION.549315 9854 Information not available 06/04/2022 Do You Use Sunscreen Routinely? No MIGRATION.667413 9879 Information not available 06/04/2022 Have You Recently Traveled Abroad? No MIGRATION.661145 2051 Information not available 06/04/2022 Sex: Unknown Functional Status Question Answer Note LastModified by Organizat ion Details LastModified Time Do you have difficulty walking or climbing stairs? No MIGRATION.6947688 026 Information not available 06/04/2022 Do you have transportation difficulties? No MIGRATION.5092051 026 Information not available 06/04/2022 Are you able to walk? YESWOREST MIGRATION.8704826 026 Information not available 06/04/2022 Do you have difficulty doing errands alone? Yes [email or web address] Information not available 11/23/2023 Are you able to care for yourself? No [email or web address] Information n ot available 11/23/2023 Do you have difficulty dressing or bathing? No MIGRATION.3805875 026 Information not available 06/04/2022 What is your exercise level? Occasional MIGRATION.8483578 026 Information not available 06/04/2022 Mental Status Question Answer Note LastModified by Organization D etails LastModified Time Do you have difficulty concentrating, remembering or making decisions? Yes [email or web address] Information no t available 11/23/2023 Family History Relationship Description Onset Age of this Age Resolved Age Notes LastModified by Organization Details LastModified Time Mother Heart disease [id number] Not available 06/04/2022 09:14:24 Mother Hypertensive disorder MIGRATION.[id number] [id number] Not available 06/04/2022 09:14:24 Unspecified Relation Diabetes mellitus MIGRATION.[id number] Not available 06/04/2022 09:14:24 Notes:Mother 94 infirmi ties Father 85 from CVA On brother and sister both living. Brother has a hx of CAD and CABG. Sister in good health Medical History Condition Response BLINDNESS N NERVE DISEASE N RHEUMATIC FEVER N BLADDER PROBLEMS N KIDNEY STONES N MRSA N OTHER # 1 N POLIO N LUNG DISEASE/DISORDER N HISTORY OF DRUG ABUSE N RADIATION / CHEMOTHERAPY N COPD N Other # 2 N BLOOD DISEASES N EAR OR HEARING PROBLEMS N MUMPS N SHINGLES N BOWEL PROBLEMS N DEPRESSION (INCLUDING POST ) N STROKE/TIA N ULCERS N BENIGN PROSTATIC HYPERPLASIA N MEASLES N HYPOTENSION N MYOCARDIAL INFARCTION N OBESITY N GERD/NAUSEA N ANEURYSM N URINARY/BLADDER/KIDNEY PROBLEMS N CORONARY ARTERY DISEASE (CAD) N ADDICTION CONCERNS N ENDOMETRIOSIS N Impotence N USE OF BLOOD THINNERS N SKIN PROBLEMS N GASTROINTESTINAL DISORDER N PERIPHERAL VASCULAR DISEASE N MUSCLE,JOINT OR BONE PROBLEMS N GASTROINTESTINAL BLEEDING N BLOOD CLOTS N ASTHMA N CATARACTS N ERECTILE DYSFUNCTION N VARICOSITIES N GI PROBLEMS N Low Testosterone N INFERTILITY N AIDS/HIV N CHEMOTHERAPY / RADIATION N LIVER DISEASE N MALE HYPOGONADISM N HYPERTENSION Y Deficiency N TOURETTE'S N ANXIETY DISORDER N BLOOD TRANSFUSION N ANEMIA/BLOOD DISORDER N CHRONIC EAR INFECTIONS N BRONCHITIS N TUBERCULOSIS N GLAUCOMA N FOOT PROBLEM N DIVERTICULITIS N CHICKENPOX N SLEEP APNEA N INFECTIOUS DISEASE N HEART ARRHYTHMIA N PROSTATE N INSOMNIA N HIGH CHOLESTEROL / HYPERLIPIDEMIA Y HYPERTHYROIDISM N EYE PROBLEMS N EDEMA N CHRONIC PAIN SYNDROME N HYPOTHYROIDISM N CAROTID BLOCKAGE N CONSTIPATION N BACK / NECK PROBLEMS N HAVE YOU BEEN HOSPITALIZED OR SEEN IN [facility] ER IN THE PAST YEAR ? N ATHEROSCLEROSIS N BREAST PROBLEMS N DIALYSIS N ECZEMA N OSTEOPOROSIS N ARTHRITIS N NO SIGNIFICANT PAST MEDICAL HISTORY N APPENDICITIS N DIABETES, TYPE Y BAD TEETH N ENT N HEARTBURN / REFLUX N AUTISM SPECTRUM DISORDER (ASD) N HEPATITIS / LIVER DISEASE N GOUT N SLEEP DISORDER N ALZHEIMER'S DISEASE N Brain Problems N HERPES N DEMENTIA N HEADACHES/MIGRAINES N SEIZURES/EPILEPSY N VASCULAR DISEASE N PACEMAKER N Blood Disorder N DIZZINESS N HEART DISEASE/HEART PROBLEMS N KIDNEY DISEASE N MULTIPLE SCLEROSIS N CARDIAC ARRHYTHMIA N CANCER: SPECIFY N ATRIAL FIBRILLATION N Gall Stones N PULMONARY EMBOLISM N AUTOIMMUNE DISEASE N Gynecological HistoryNo gynecological history recorded. Obstetrics History GPAL:G 0 P 0 0 0 0 Immunizations Vaccine Type Date Status Note Provider Nam e and Address Organization Details Recorded Time Influenza, split virus, trivalent, preservative 4 completed Not Available [facility] 06/04/2022 09:18:31 Influenza, split virus, trivalent, preservative 3 completed Not Available [facility] 06/04/2022 09:18:32 COVID-19, mRNA, LNP-S, PF, 30 mcg/0.3 mL dose 1 completed Not Available [facility] 06/04/2022 09:18:32 COVID-19 Non-US Vaccine, Product Unknown 1 completed Not Available [facility] 06/04/2022 09:18:32 COVID-19 Non-US Vaccine, Product Unknown 1 completed Not Available [facility] 06/04/2022 09:18:32 influenza, unspecified formulation 2 completed Not Available [facility] 06/04/2022 09:18:32 zoster live 5 completed Not Available [facility] 06/04/2022 09:18:32 Influenza, high-dose, quadrivalent, PF 2 completed Not Available [facility] 06/04/2022 09:18:32 Influenza, high-dose, quadrivalent, PF 0 completed Not Available [facility] 06/04/2022 09:18:32 Influenza, high-dose, trivalent, PF 9 completed Not Available [facility] 06/04/2022 09:18:33 pneumococcal polysaccharide PPV23 9 completed Not Available [facility] 06/04/2022 09:18:33 Influenza, high-dose, trivalent, PF 8 completed Not Available [facility] 06/04/2022 09:18:33 Influenza, high-dose, trivalent, PF 6 completed Not Available [facility] 06/04/2022 09:18:33 Influenza, high-dose, trivalent, PF 5 completed Not Available [facility] 06/04/2022 09:18:33 Pneumococcal conjugate PCV 13 4 completed Not Available [facility] 06/04/2022 09:18:33 Pneumococcal conjugate PCV20, polysaccharide QSQ195 conjugate, adjuvant, PF 4 completed Alfa Cornejo MD [address] [facility] [facility] [address], [place], [address], [facility] 03/21/2024 15:02:14 Past Encounters Encounter ID Performer Location Encounter Start Date Encounter Closed Date Diagnosis/Indication Diagnosis SNOMED-CT Code Diagnosis ICD10 Code [id number] Alfa Cornejo MD [facility] Internal Med [facility] [address] [facility] [address] [place] [address] 03/21/2024 14:37:00 03/21/2024 15:15:40 Administration of pneumococcal vaccine 81300822 Z23 Essential hypertension 82744706 I10 Hyperlipidemia 94599620 E78.5 Type 2 erik betes mellitus without complication 980113150 E11.9 Dementia 45865663 F03.90 Health Concerns Section Related Observation LastModified by Organization Detai ls LastModified Time None Recorded Concern Status LastModified by Organization Details LastModified Time None Recorded Payers Encounter Date Sequence Insurance Name Policy Number Policy Arthur Covered Member ID Arthur Member ID Guarantor Name 03/21/2024 1 [employer] (MEDICARE REPLACEMENT/A DVANTAGE - PPO) Claudia Hernandez [id number] Claudia Hernandez Notes Date Note Type Note Provider Name and Address Organization Details Recorded Time 4 text/html Patient Name: Claudia HernandezDate Of Service: Thursday ( 03.21.2024 ): 1940 Age: 83 There has been approximately a 9 lb weight gain since 11/23/2023. This represents approximately a 8.0% change in weight. Weight change attributable to lifestyle changes. Vital Signs:Blood Pressure: Sitting Rt. Arm 142/80Pulse: Sitting 76 /min and RegularRespiratory Rate: 16Height 62 in or 1.6 mWeight 122 lb or 55.3 kgBMI 22.3Temperature: 97 F or 36.1 CPulse Oximetry: 98 % at rest on no oxygen Chief Complaint: Addressed in HPI Problems or conditions discussed in the HPI were the only ones reviewed during the encounter.Only social and family history addressed in the HPI were reviewed during this encounter. Attendant(s): DaughterConstitutional and Systemic Symptoms:none Medication Reconciliation: from medication list. Ysdnwukjyfw70/16/2023: CT scan of the brain without contrast showed age-related changes and mild diffuse volume loss and moderate scattered white matter hypo attenuation consistent with chronic small-vessel ischemic disease. Some mucus clearing as noted in the left sphenoid sinus. History of Present Illness #1. Essential Hypertension: Stage: Stage I Interval Neurological Complaints no headaches, dizziness, weakness, visual changes, ataxia, aphasia and apraxia. No shortness of breath, orthopnea or cardiovascular symptoms. No other symptoms related to end organ damage. Pressure has been under excellent control. Currently normal. No other end organ symptoms or findings. Therapy reviewed regarding management of hypertension and includes salt restriction and Norvasc. #2. Type I Hypercholesterolaemia: Currently taking medication and tolerating well. No interval complaints of any muscle pain or arthralgia. No significant liver changes with medications. Last lipid panel: excellent control. Therapy reviewed regarding treatment of cholesterol management and include diet and Lipitor. #3. Type II Diabetes: Has had no polyuria polyphagia or polydipsia. Has had no hypoglycemic like responses. No new history of any numbness, tingling, weakness or visual problems. No nausea, anorexia or other constitutional symptoms. There has been no foot problems or non healing lesions. The last HAIC was DCCT HAIC: 6.6 Calculated MB mg%. CGM: No. Average blood sugars 125-150 mg%. Checking sugars : several times a week. Medication Types Include: Metformin and Sulfonylureas Secondary complications include none. Macro-vascular complications include none. Therapy reviewed regarding diabetic management and include Glimepiride and Glucophage Compliance: good Renal Protection: starting on a calcium juanita Lipid management: statins Urinary microalbumin: A1 . Ophthalmological: has seen eye doctor within the last year. Control: Good Control 6.2 - 7.0#4. Mild dementia clinically stable. Taking Aricept 5 mg daily and doing reasonably well. There has been no significant deterioration cognitive functioning. Active Medication ListEscitalopram 5 MG TABLET One DailyVitamin E 400 IU DailyVitamin D 1000 IU DailyGlucophage 500 MG One Twice A DayLipitor 10 MG TABLET, FILM COATED DailyNorvasc 10 MG (TABLET - ORAL) DailyGlimepiride 1 MG TABLET QdAricept 5 MG TABLET, FILM COATED Once Daily Adverse Drug Reactions ReviewedShellfish Unknown Vaccination and Immunization( ) 2016- PREVNAR 13 GC(X) 2021- INFLUENZA( ) 2019-02 PNEUMOVAX( ) 2023- PREVNAR 20(X) 2021-01 COVID PFIZER(X) 2021-01 COVID BOOSTER PFIZER Surgical [id number] Bladder [id number] Vaginal [id number] Lumpectomy Right Breast Preventative Testing( ) 11/23/2023 Albumin 3.9 G/DL( ) 11/23/2023 HAIC 6.6 % H( ) 06/13/2022 Micro Albumin 80.9 MG/L H( ) 11/24/2019 Mammogram( ) 11/24/2019 DEXA Scan 11/23/2021 Social HistoryDoes not smoke or drink Family HistoryMother 94 infirmitiesFather 85 from CVAOn brother and sister both living. Brother has a hx of CAD and CABG. Sister in good health TEST RESULT RANGE UNITSCOMPREHENSIVE METABOLIC PANEL Date: 11/23/2023SODIUM 140 137-145 MMOL/LPOTASSIUM 4.2 3.5-5.1 MMOL/LGLUCOSE 134 70-99 MG/DLBUN 37 8-19 MG/DLGFR 55CREATININE 0.97 0.66-1.25 MG/DLALKALINE PHOSPHATASE 55 38-126 U/LALANINE AMINOTRANSFERASE 18 0-35 U/LASPARTATE AMINOTRANSFERASE 24 15-37 U/LBILIRUBIN, TOTAL 0.30 0.20-1.30 MG/DLHEMOGLOBIN A1C Date: 11/23/2023HA1C 6.6 4.0-6.0 %LIPID PANEL Date: 4CHOLESTEROL 107 140-199 MG/DLTRIGLYCERIDES 149 0-150 MG/DLHDL CHOLESTEROL 49 40- MG/DLLDL CHOLESTEROL, CALCULATED 28 0-130 MG/DLCBC/COMPLETE BLD COUNT W/DIFF Date: 07/29/2023WHITE BLOOD CELLS 3.8 4.2-10.8 X10'3/ULHEMOGLOBIN 15.1 12.0-15.6 G/DLHEMATOCRIT 45.2 35.7-45.7 %PLATELETS 156 150-400 X10'3/UL Alfa Cornejo MD [address] [facility] [address], [place], [address], [place] [facility] 03/21/2024 15:08:42 OBGyn Episode No OBEpisode recorded.
--- OUTSIDE RECORDS SUMMARY | 2024-04-06 20:27 | XMS_ITS | CONTINUITY OF CARE DOCUMENT ---
Author Name sotero bey Address Unknown Organization [facility] Address [address] [place] [address] Phone [phone] Care Team Providers Care [employer] Screen Watcher Name Role Phone Sreekanth FRASER, Lyudmila Unavailable [phone] PAWAN FORMAN MD Unavailable PAWAN FORMAN MD Unavailable PROBLEMS Condition Status Date Provider Notes Near syncope and fall active Lyudmila Ortiz Chest discomfort nl echo , s tress nuclear 04/2021 active Lyudmila Stack MD Dizziness- sinus carrie on ho lter , nl carotids 04/27 active Lyudmila Stack MD Diabetes mellitus, type 2 active Lyudmila murguia MD Essential hypertension active Lyudmila Stack MD ENCOUNTERS Date Type Provider Location Encounter Diag nosis - In-person encounter Office Visit Lyudmila Stack MD [facility] - In-person encounter Office Visit Lyudmila Stack MD [facility] - In-person encounter Office Visit Lyudmila Stack MD [facility] Dizziness- sinus carrie on holter , nl carotids 04/27Chest discomfort nl echo , stress nuclear 04/2021 - In-person encounter Office Visit Lyudmila Stack MD [facility] Essential hypertensionDiabetes mellitus, type 2Dizziness- sinus carrie on holter , nl carotids 04/27Chest discomfort nl echo , stress nuclear 04/2021Near syncope and fall VITAL SIGNS Date Observation Value Provider Body Mass Index (Ratio) 21.08 kg/m2 Ricky Sarmientoi blood pressure, cuff size large Pa denton [place] blood pressure, diastolic 84 mm[Hg] Pa denton [place] blood pressure, systolic 148 mm[Hg] [facility] helle [place] oxygen saturation, oximetry 99 % Riddhi [place] pulse rate 89 /min Riddhi Gonzáles angel respiratory rate E&M 16 /min Racheal blackwell [place] weight E&M 119 [lb_av] Riddhi Gonzáles angel height E&M 63 [in_i] Riddhi Eliecer ortiz Body Mass Index (Ratio) 21.25 kg/m2 Deshaun Flores blood pressure, cuff size small Pa denton [place] blood pressure, diastolic 90 mm[Hg] Pa denton [place] blood pressure, systolic 170 mm[Hg] [facility] [place] oxygen saturation, oximetry 98 % Riddhi [place] respiratory rate E&M 51 /min Racheal blackwell [place] pulse rate 16 /min Riddhi Eliecer ortiz weight E&M 120 [lb_av] Riddhi Travisvictorino ortiz height E&M 63 [in_i] Riddhi ortiz Body Mass Index (Ratio) 20.37 kg/m2 Ricky Ahmedzai blood pressure, diastolic 96 mm[Hg] Li nkLogic blood pressure, systolic 186 mm[Hg] Sindhu kLogic blood pressure, cuff size regular Sa ra Coats blood pressure, diastolic 96 mm[Hg] Sa ra Coats blood pressure, systolic 186 mm[Hg] Salomon a Coats oxygen saturation, oximetry 98 % Tonja Coats respiratory rate E&M 17 /min Tonja Si ms pulse rate 63 /min Tonja Coats weight E&M 115 [lb_av] Tonja Coats height E&M 63 [in_i] Tonja Coats ALLERGIES Allergy Name Onset Date Reaction Criticality Status SHELLFISH High Criticality active HISTORY OF MEDICATION USE Medication Status Instructions Dates Provider Indications Com ments atenolol 25 mg tablet completed - 4 Ricky Negrete metformin 1,000 mg tablet active Ricky Crowderzaluis amlodipine 10 mg tablet active Take 1 tablet by mouth once a day Esther Flores valacyclovir 500 mg tablet completed - 5 Ricky Lancemedzaluis atorvastatin 20 mg tablet active Ricky Crowderzai SOCIAL HISTORY Date Observation Value Provider social history reviewed E&M revi ewed - no changes required Ricky Negrete social history E&M S moking History: Narinder bolton is a former smoker. Lyudmila Stack MD cigarette use yes Riddhi Maldonado nd smoking status Former smoker Riddhi [facility] social history reviewed E&M revi ewed - no changes required Ricky Negrete social history reviewed E&M revi ewed - no changes required Esther Flores social history E&M S moking History: Narinder bolton is a former smoker. Esther Flores cigarette use yes Riddhi Maldonado nd smoking status Former smoker Riddhi [facility] social history E&M S moking History: Narinder bolton is a former smoker. Ricky Negrete social history reviewed E&M revi ewed - no changes required Ricky Negrete cigarette use yes Tonja Coats smoking status Former smoker Tonja Coats INSURANCE PROVIDERS Payer name Policy type / Coverage type [employer] party ID [employer] PPO O [id number] [facility] [employer] 333 [id number] ADVANCE DIRECTIVES Name Date DISCUSSED - NO DECISION MADE TREATMENT PLAN Date Name Performer [id number],S, Ricky Ahmedza i [id number],B, Ricky Ahmedza i [id number],S, Ricky Ahmedza i [id number],S, Ricky Ahmedza i [id number],B, Ricky Ahmedza i [id number],B, Lyudmila Stack MD [id number],S, Esther Flores [id number],W, Esther Flores [id number],S, Esther Flores [id number],S, Esther Flores [id number],S, Ricky Ahmedza i [id number],S, Ricky Ahmedza i [id number],S, Ricky Ahmedza i [id number],S, Ricky Ahmedza i [id number],S, Ricky Ahmedza i Cardiology Ricky Ahmedzai Cardiology Ricky Ahmedzai Cardiology Ricky Ahmedzai Cardiology Ricky Ahmedzai Cardiology Ricky Ahmedzai Cardiology Lyudmila Stack MD Cardiology Esther Flores Cardiology Lyudmila Stack MD Cardiology Esther Flores Cardiology Esther Flores Cardiology Ricky Ahmedzai Cardiology Ricky Ahmedzai Cardiology Ricky Ahmedzai Cardiology Ricky Ahmedzai Cardiology Ricky Ahmedzaluis Date Name Stress Regadenoson Monitor - Telemetry (Mobile Cardiac) Carotid Duplex Bilat eral Complete Echo HISTORY OF PROCEDURES Procedure Date Procedure Name Provider Procedure Notes S tatus EKG Lyudmila Stack MD completed
--- OUTSIDE RECORDS SUMMARY | 2024-04-06 20:27 | XMS_ITS | Data Portability ---
Author Organization [employer], Main Office Address [address] [place] [address] Assessment No assessment recorded. Plan of Treatment Reminders Order Date Submit Date Provider Last Modified By Organization Details Last Modified Time Details Appointments None recorded. Lab HbA1c (hemoglob in A1c), blood 023 023 [email or web address] [facility] Outpatient Lab, [address] [place], [address], 3 09:40:32 vitamin B12, serum 023 023 [facility] Out[facility], [address] [place], [address], 3 19:19:18 vitamin D, 25-hydrox y, total, serum 023 023 [email or web address] [facility] Out[facility] Lab, [address] [place], [address], 4 09:41:13 HbA1c (hemoglob in A1c), blood 023 023 [facility], [address] [place], [address], 4 09:41:13 CBC w/ auto diff 023 023 [facility] Out[facility], [address] [place], [address], 3 15:38:53 lipid panel, serum 023 023 [facility] Out[facility], [address] [place], [address], 3 18:45:07 CMP, serum or plasma 023 023 [facility] Out[facility] Lab, [address] [place], [address], 3 18:45:13 TSH, serum or plasma 023 023 [facility] Out[facility] Lab, [address] [place], [address], 3 18:47:45 T4, free, serum 023 023 [facility] Outpatient Lab, [address] [place], [address], 3 18:45:33 vitamin B12, serum [id number] [place] [address] - Outpatient Lab, [address] [place], [address], 4 16:34:30 HbA1c (hemoglob in A1c), blood [id number] [place] [address] Outpatient Lab, [address] [place] [address], [address], 4 16:34:30 CBC w/ auto diff [id number] [place] [address] - Outpatient Lab, [address] [place], [address], 4 16:34:29 lipid panel, serum [id number] [place] [address] Outpatient Lab, [address] [place], [address], 4 16:34:29 CMP, serum or plasma [id number] [place] [address] - Outpatient Lab, [address] [place] [address] [place], [address], 4 16:34:29 TSH, serum or plasma [id number] Outpatient Lab, [address] [place] [address], [address], 4 16:34:30 T4, free, serum [id number] Outpatient Lab, [address] [place] [address], [address], 4 16:34:30 HbA1c (hemoglob in A1c), blood [id number] Outpatient Lab, [address] [place] [address], [address], 4 16:32:36 lipid panel, serum 024 [facility] Out[facility] Lab, [address] [place], [address], 4 18:15:24 CMP, serum or plasma 024 [facility] Out[facility] Lab, [address] [place] [address], [address], 4 18:15:31 HbA1c (hemoglob in A1c), blood 024 [facility] Outpatient Lab, [address] [place] [address], [address], 4 04:41:39 lipid panel, serum 024 [facility] Outpatient Lab, [address] [place], [address], 4 04:41:38 CMP, serum or plasma 024 [facility] Outpatient Lab, [address] [place], [address], 4 04:41:39 CBC w/ auto diff 024 024 [facility] - Outpatient Lab, [address] [place], [address], 4 04:41:39 Referral None recorded. Procedures None recorded. Surgeries None recorded. Imaging None recorded. Medication Orders None recorded. Patient TargetsNo targets recorded. Patient Instructions Encounter Date Encounter Id Patient Instructions Last Modified By Organization Details Last Modified Time 11/20/2022 [id number] Hypertension -hyperlipidemia - type 2 diabetes -cobalamin deficiency. Continue on current Rx. Will check a hemoglobin A1c and B12 level. Instructed to reduce her metformin from 1000 mg daily to half tablet twice daily. Continue on current Rx follow-up in four months [email or web address] Not available 11/20/2022 12:12:19 03/12/2023 [id number] Follow-up hypertension, hyperlipidemia, type 2 diabetes and mild dementia all clinically stable. Will continue on current medications. Will check blood work consisting of CBC, CMP, lipid, thyroid, HAIC and vitamin-D level. Continue on current Rx follow-up in four months. FDA recommendations of a influenza, RSV, COVID, pneumococcal immunizations strongly advised. Portions of the record may have been created with voice recognition software. Occasional wrong-word or ? [id number]? substitutions may have occurred due to the inherent limitations of voice recognition software. Read the chart carefully and recognize, using context, where substitutions have occurred. [email or web address] Not available 03/12/2023 11:55:50 07/20/2023 [id number] Essential hypertension, hyperlipidemia type 2 diabetes and dementia. Clinically stable. Will check a CBC, CMP, lipid, thyroid and B12 level. Recommend the patient strongly consider the possibility of moving into an assisted living arrangement. She really is unable to care for herself at home because of severe memory problems and inability to perform complicated tasks. Will follow-up in four months. Next Appointment: 4 Months Approximate Date: 11/17/2023 Portions of the record may have been created with voice recognition software. Occasional wrong-word or ? [id number]? substitutions may have occurred due to the inherent limitations of voice recognition software. Read the chart carefully and recognize, using context, where substitutions have occurred. Not available 07/20/2023 15:11:24 11/23/2023 [id number] dementia rating scale-2* Not available 11/23/2023 15:08:29 alcohol misuse* [email or web address] Not available 11/23/2023 15:08:29 depression screening* [email or web address] Not available 11/23/2023 15:08:29 Timed Up and Go test (TUG)* [email or web address] Not available 11/23/2023 15:08:29 multi-dimensiona l health assessment questionnaire* Not available 11/23/2023 15:08:29 Personalized a lt Plan and Screening Recommendations Advance Directives - Do you have one? Yes Advance Directives - Do we have your advance directive on file in your health record? Primary Prevention/Interven tion (prevents or decreases the chance of common diseases from occurring) Smoking Risk: Non Smoker Alcohol Misuse Screening: Negative Weight: Appropriate Physical activity: Nutrition: Good Average Fall Risk (screened today): Low Intermediate Vaccines Pneumococcal: Ordered Recommended today Recommended today, but you have declined No further needed Influenza: Chronic Disease Risks Stroke: Low Risk Intermediate Risk I have no recommendations Act dax diagnosis, Continue current treatment plan Heart Attack: Low risk Intermediate Risk I have no recommendations Act dax diagnosis, Continue current treatment plan Clogging of the Arteries: Low risk Intermediate Risk I have no recommendations Act dax diagnosis, Continue current treatment plan Diabetes: Low Risk Intermediate Risk Secondary Prevention/Interven tion (detects treatable diseases before they may cause symptoms, disability, or ) Breast Cancer Screening with mammogram: Cervical/Uterine/Ov ivelisse Cancer Screening: Osteoporosis Screening: Date Screening Last Performed: Colon Cancer Screening: Date Screening Last Performed: Eye Disease Screening: Dementia Risk: Low I have no recommendations Depression Screening: Negative [email or web address] Not available 11/23/2023 14:56:48 Medicare [facility] s evaluation risk assessment stable. Follow-up essential hypertension, hyperlipidemia, type 2 diabetes and dementia all clinically stable. Will check some blood work consisting of a cholesterol panel, CMP and hemoglobin A1c. Will add some escitalopram 5 mg once daily to current regimen and see if there is any improvement in mood status. Follow-up in four months Next Appointment: 4 Months Approximate Date: 03/22/2024 Portions of the record may have been created with voice recognition software. Occasional wrong-word or ? [id number]? substitutions may have occurred due to the inherent limitations of voice recognition software. Read the chart carefully and recognize, using context, where substitutions have occurred. [email or web address] Not available 11/23/2023 15:08:10 03/21/2024 [id number] Follow-up for hypertension, hyperlipidemia, type 2 diabetes [...] voice recognition software. Occasional wrong-word or ? [id number]? substitutions may have occurred due to the inherent limitations of voice recognition software. Read the chart carefully and recognize, using context, where substitutions have occurred. Created: Alfa Cornejo M.D. 03.21.2024 02:08 PM [email or web address] Not available 03/21/2024 15:08:20 Reason for Referral None Reported. Results Created Date Observation Date Name Description Value Unit Range Abnormal Flag Note LastModifiedBy Organization Detail LastModifiedTime 11/21/19 23 11/20/2022 HEMOG LOBIN A1C HA1C 6.3 % 4.0-6. 0 high Diabe katja Scree carlo Crite phoebe: <5.7% Consi stent with absen ce of diabe katja 5.7-6 .4% Consi stent with incre ased risk for diabe katja (pred iabet es) >OR=6 .5% Consi stent with diabe katja REFER ENCE: Diabe katja Care 2016, 39(Nicole ppl.1 ):s13 -s22 Not Available [facility] (Lab) [address] [place], [address], 11/20/2022 16:02:50 11/21/19 23 11/20/2022 VITAM IN B12 (TALIA SY ) vb12 331 pg/mL 239-93 1 Not Available [facility] (Lab) [address] [place], [address], 11/20/2022 19:19:18 03/12/20 23 03/12/2023 CBC/C OMPLE TE BLD COUNT W/DIF F white blood cells 4.6 x10'3 /uL 4.2-10 .8 Not Available [facility] (Lab) [address] [place], [address], 03/12/2023 15:38:53 03/12/20 23 03/12/2023 CBC/C OMPLE TE BLD COUNT W/DIF F red blood cells 4.58 x10'6 /uL 3.80-5 .20 Not Available [facility] (Lab) [address] [place], [address], 03/12/2023 15:38:53 03/12/20 23 03/12/2023 CBC/C OMPLE TE BLD COUNT W/DIF F hemoglobin 15.0 g/dL 12.0-1 5.6 Not Available [facility] (Lab) [address] [place], [address], 03/12/2023 15:38:53 03/12/20 23 03/12/2023 CBC/C OMPLE TE BLD COUNT W/DIF F hematocrit 45.8 % 35.7-4 5.7 high Not Available [facility] (Lab) [address] [place], [address], 03/12/2023 15:38:53 03/12/20 23 03/12/2023 CBC/C OMPLE TE BLD COUNT W/DIF F mean red cell volume 100.0 fL 82.0-9 9.0 high Not Available [facility] (Lab) [address] [place], [address], 03/12/2023 15:38:53 03/12/20 23 03/12/2023 CBC/C OMPLE TE BLD COUNT W/DIF F mean red cell hemoglobin 32.8 pg 27.0-3 3.0 Not Available [facility] (Lab) [address] [facility] [place], [address], 03/12/2023 15:38:53 03/12/20 23 03/12/2023 CBC/C OMPLE TE BLD COUNT W/DIF F mean RBC HGB concentratio n 32.8 g/dL 31.0-3 6.0 Not Available [facility] (Lab) [address] [place], [address], 03/12/2023 15:38:53 03/12/20 23 03/12/2023 CBC/C OMPLE TE BLD COUNT W/DIF F red cell distribution width 11.4 % 11.8-1 5.5 low Not Available [facility] (Lab) [address] [place], [address], 03/12/2023 15:38:53 03/12/20 23 03/12/2023 CBC/C OMPLE TE BLD COUNT W/DIF F platelets 225 x10'3 /uL 150-40 0 Not Available [facility] (Lab) [address] [place], [address], 03/12/2023 15:38:53 03/12/20 23 03/12/2023 CBC/C OMPLE TE BLD COUNT W/DIF F mean platelet volume 11.7 fL 9.0-12 .4 Not Available [facility] (Lab) [address] [place], [address], 03/12/2023 15:38:53 03/12/20 23 03/12/2023 CBC/C OMPLE TE BLD COUNT W/DIF F neutrophils 71.3 % 39.0-7 2.0 Not Available [facility] (Lab) [address] [place], [address], 03/12/2023 15:38:53 03/12/20 23 03/12/2023 CBC/C OMPLE TE BLD COUNT W/DIF F lymphocytes 20.0 % 16.0-4 7.0 Not Available [facility] (Lab) [address] [place], [address], 03/12/2023 15:38:53 03/12/20 23 03/12/2023 CBC/C OMPLE TE BLD COUNT W/DIF F monocytes 6.3 % 5.0-12 .0 Not Available [facility] (Lab) [address] [place], [address], 03/12/2023 15:38:53 03/12/20 23 03/12/2023 CBC/C OMPLE TE BLD COUNT W/DIF F eosinophils 1.1 % 1.0-7. 0 Not Available [facility] (Lab) [address] [place], [address], 03/12/2023 15:38:53 03/12/20 23 03/12/2023 CBC/C OMPLE TE BLD COUNT W/DIF F basophils 1.1 % 0.0-2. 0 Not Available [facility] (Lab) [address] [place], [address], 03/12/2023 15:38:53 03/12/20 23 03/12/2023 CBC/C OMPLE TE BLD COUNT W/DIF F immature granulocytes 0.2 % 0.00-0 .50 Not Available [facility] (Lab) [address] [place], [address], 03/12/2023 15:38:53 03/12/20 23 03/12/2023 CBC/C OMPLE TE BLD COUNT W/DIF F neutrophils, absolute count 3.29 x10'3 /uL 1.5-8. 0 Not Available [facility] (Lab) [address] [place], [address], 03/12/2023 15:38:53 03/12/20 03/12/2023 CBC/C OMPLE TE BLD COUNT W/DIF F lymphocytes, absolute count 0.92 x10'3 /uL 1.07-3 .43 low Not Available [facility] (Lab) [address] [place], [address], 03/12/2023 15:38:53 03/12/20 23 03/12/2023 CBC/C OMPLE TE BLD COUNT W/DIF F monocytes, absolute count 0.29 x10'3 /uL 0.29-0 .99 Not Available [facility] (Lab) [address] [place], [address], 03/12/2023 15:38:53 03/12/20 23 03/12/2023 CBC/C OMPLE TE BLD COUNT W/DIF F eosinophils, absolute count 0.05 x10'3 /uL 0.02-0 .53 Not Available [facility] (Lab) [address] [place], [address], 03/12/2023 15:38:53 03/12/20 23 03/12/2023 CBC/C OMPLE TE BLD COUNT W/DIF F basophils, absolute count 0.05 x10'3 /uL 0.01-0 .08 Not Available [facility] (Lab) [address] [place], [address], 03/12/2023 15:38:53 03/12/20 23 03/12/2023 CBC/C OMPLE TE BLD COUNT W/DIF F immature granulocytes ,absolute 0.01 x10'3 /uL 0.00-0 .05 Not Available [facility] (Lab) [address] [place], [address], 03/12/2023 15:38:53 03/12/20 23 03/12/2023 CBC/C OMPLE TE BLD COUNT W/DIF F nucleated red blood cells 0.0 % -0 Not Available [facility] (Lab) [address] [place], [address], 03/12/2023 15:38:53 03/12/20 23 03/12/2023 CBC/C OMPLE TE BLD COUNT W/DIF F NRBC# 0.00 x10'3 /uL Not Available [facility] (Lab) [address] [place], [address], 03/12/2023 15:38:53 03/12/2003/12/2023 VITAM IN D 25-HY DROXY [id number] 49.7 NG/mL 30-100 Vitam in D Statu s: Defic ient: <20 ng/mL Insuf ficie nt: 20-29 ng/mL Suffi cient : 30-10 0 ng/mL Not Available [facility] (Lab) [address] [place], [address], 03/12/2023 17:54:12 03/12/20 23 03/12/2023 LIPID PANEL cholesterol 150 mg/dL 140-19 9 NIH VALERIA NSUS RECOM MENDA TION FOR ZACKERY STERO L: ADULT CHILD LOW RISK: <200 <170 BORDE RLINE : <200- 239 ----- HIGH RISK: >240 >200 Not Available [facility] (Lab) [address] [place], [address], 03/12/2023 18:45:07 03/12/20 23 03/12/2023 LIPID PANEL triglyceride s 188 mg/dL 0-150 high NIH VALERIA NSUS REPOR T RECOM MENDA TION FOR TRIGL YCERI RAMAKRISHNA: ADULT CHILD LOW RISK: <150 ----- BODER LINE: 150-1 99 ----- HIGH RISK: >200 ----- Not Available [facility] (Lab) [address] [place], [address], 03/12/2023 18:45:07 03/12/20 23 03/12/2023 LIPID PANEL HDL cholesterol 44 mg/dL 40- Not Available [facility] (Lab) [address] [place], [address], 03/12/2023 18:45:07 03/12/2003/12/2023 LIPID PANEL LDL cholesterol, calculated 68 mg/dL 0-130 NIH VALERIA NSUS REPOR T RECOM MENDA TIONS FOR LDL: ADULT CHILD LOW RISK <130 <110 (OPTI MAL LDL) <100 ----- BORDE RLINE : 130-1 59 ----- HIGH RISK: >160 >130 A TRIGL YCERI DE RESUL T >400 INVAL IDATE S THE CALCU LATIO N FOR LDL FRACT IONAT ION - THE LDL RESUL T WILL NOT BE REPOR TRISTEN. Not Available [facility] (Lab) [address] [place], [address], 03/12/2023 18:45:07 03/12/20 23 03/12/2023 COMPR EHENS DAX METAB OLIC PANEL sodium 139 mmol/ L 137-14 5 Not Available [facility] (Lab) [address] [place], [address], 03/12/2023 18:45:13 03/12/20 23 03/12/2023 COMPR EHENS DAX METAB OLIC PANEL potassium 4.2 mmol/ L 3.5-5. 1 Not Available [facility] (Lab) [address] [place], [address], 03/12/2023 18:45:13 03/12/20 23 03/12/2023 COMPR EHENS DAX METAB OLIC PANEL chloride 101 mmol/ L 98-107 Not Available [facility] (Lab) [address] [place], [address], 03/12/2023 18:45:13 03/12/20 23 03/12/2023 COMPR EHENS DAX METAB OLIC PANEL carbon dioxide 32 mmol/ L 22-30 high Not Available [facility] (Lab) [address] [place], [address], 03/12/2023 18:45:13 12/07/20 23 03/12/2023 COMPR EHENS DAX METAB OLIC PANEL anion gap 10.2 mmol/ L 14-22 low Not Available [facility] (Lab) [address] [place], [address], 03/12/2023 18:45:13 03/12/20 23 03/12/2023 COMPR EHENS DAX METAB OLIC PANEL glucose 287 mg/dL 70-99 high Not Available [facility] (Lab) [address] [place], [address], 03/12/2023 18:45:13 03/12/20 23 03/12/2023 COMPR EHENS DAX METAB OLIC PANEL BUN 30 mg/dL 8-19 high Not Available [facility] (Lab) [address] [place], [address], 03/12/2023 18:45:13 03/12/20 23 03/12/2023 COMPR EHENS DAX METAB OLIC PANEL creatinine 0.93 mg/dL 0.66-1 .25 Not Available [facility] (Lab) [address] [place] [address], [address], 03/12/2023 18:45:13 03/12/20 23 03/12/2023 COMPR EHENS DAX METAB OLIC PANEL GFR 57 Refer ence Range : [place] ge GFR Healt hy Adult : >60 mL/mi n/1.7 3 m2 Chron ic Kidne y Disea se: 15-60 mL/mi n/1.7 3 m2 Kidne y Failu re: <15/m L/min /1.73 m2 www.n iddk. nih.g ov The MDRD study equat ion has not been valid ated in child belkis <18 years of age; pregn ant women ; the elder ly >85 years of age; or in some racia l or ethni c subgr oups, such as Hispa nics. Outsi de the valid ated yani eters , estim ated GFR is less accur ate, requi ring clini shital judgm ent on a case- by-ca se basis . Clini shital inter preta tion for other races and ages must be made by the clini telma. The MDRD study equat ion has not been valid ated for the evalu ation of serum creat inine relat ed to nutri chato l statu s or medic ation usage . For perso ns <18 years of age, a pedia tric GFR calcu lator is avail able on the [facility] websi te: https ://anoop w.kenyatta wangy.o rg/pr ofess ional s/kdo qi/gf r_cal culat or Not Available [facility] (Lab) [address] [place], [address], 03/12/2023 18:45:13 03/12/2003/12/2023 COMPR EHENS DAX METAB OLIC PANEL alkaline phosphatase 49 U/L 38-126 Not Available [facility] (Lab) [address] [place], [address], 03/12/2023 18:45:13 03/12/20 23 03/12/2023 COMPR EHENS DAX METAB OLIC PANEL alanine aminotransfe rase 19 U/L 0-35 Not Available [facility] (Lab) [address] [place], [address], 03/12/2023 18:45:13 03/12/20 23 03/12/2023 COMPR EHENS DAX METAB OLIC PANEL aspartate aminotransfe rase 64 U/L 15-37 high Not Available [facility] (Lab) [address] [place], [address], 03/12/2023 18:45:13 03/12/20 23 03/12/2023 COMPR EHENS DAX METAB OLIC PANEL bilirubin, total 0.60 mg/dL 0.20-1 .30 Not Available [facility] (Lab) [address] [place], [address], 03/12/2023 18:45:13 03/12/20 23 03/12/2023 COMPR EHENS DAX METAB OLIC PANEL calcium 9.8 mg/dL 8.4-10 .2 Not Available [facility] (Lab) [address] [place], [address], 03/12/2023 18:45:13 03/12/20 23 03/12/2023 COMPR EHENS DAX METAB OLIC PANEL total protein 8.1 g/dL 6.3-8. 2 Not Available [facility] (Lab) [address] [place], [address], 03/12/2023 18:45:13 03/12/20 23 03/12/2023 COMPR EHENS DAX METAB OLIC PANEL albumin 4.3 g/dL 3.0-4. 4 Not Available [facility] (Lab) [address] [place], [address], 03/12/2023 18:45:13 03/12/20 23 03/12/2023 COMPR EHENS DAX METAB OLIC PANEL globulin 3.8 g/dL 2.6-4. 2 Not Available [facility] (Lab) [address] [place], [address], 03/12/2023 18:45:13 03/12/20 23 03/12/2023 COMPR EHENS DAX METAB OLIC PANEL A/G ratio 1.1 ratio 1.0-2. 0 Not Available [facility] (Lab) [address] [place], [address], 03/12/2023 18:45:13 03/12/20 23 03/12/2023 T4 FREE free T4 1.04 NG/dL 0.78-2 .19 Not Available [facility] (Lab) [address] [place], [address], 03/12/2023 18:45:33 03/12/20 23 03/12/2023 TSH thyroid-stim ulating hormone 2.320 uIU/m L 0.465- 4.680 Not Available [facility] (Lab) [address] [place], [address], 03/12/2023 18:47:45 03/12/20 23 03/12/2023 HEMOG LOBIN A1C HA1C 7.1 % 4.0-6. 0 high Diabe katja Scree carlo Crite phoebe: <5.7% Consi stent with absen ce of diabe katja 5.7-6 .4% Consi stent with incre ased risk for diabe katja (pred iabet es) >OR=6 .5% Consi stent with diabe katja REFER ENCE: Diabe katja Care 2016, 39( ppl.1 ):s13 -s22 Not Available [facility] (Lab) [address] [place], [address], 03/12/2023 20:07:48 07/29/19 24 07/29/2023 CBC/C OMPLE TE BLD COUNT W/DIF F white blood cells 3.8 x10'3 /uL 4.2-10 .8 low Not Available [facility] (Lab) [address] [place], [address], 07/29/2023 13:22:40 07/29/19 24 07/29/2023 CBC/C OMPLE TE BLD COUNT W/DIF F red blood cells 4.74 x10'6 /uL 3.80-5 .20 Not Available [facility] (Lab) [address] [place], [address], 07/29/2023 13:22:40 07/29/19 24 07/29/2023 CBC/C OMPLE TE BLD COUNT W/DIF F hemoglobin 15.1 g/dL 12.0-1 5.6 Not Available [facility] (Lab) [address] [place], [address], 07/29/2023 13:22:40 07/29/19 24 07/29/2023 CBC/C OMPLE TE BLD COUNT W/DIF F hematocrit 45.2 % 35.7-4 5.7 Not Available [facility] (Lab) [address] [place], [address], 07/29/2023 13:22:40 07/29/1907/29/2023 CBC/C OMPLE TE BLD COUNT W/DIF F mean red cell volume 95.4 fL 82.0-9 9.0 Not Available [facility] (Lab) [address] [place], [address], 07/29/2023 13:22:40 07/29/1907/29/2023 CBC/C OMPLE TE BLD COUNT W/DIF F mean red cell hemoglobin 31.9 pg 27.0-3 3.0 Not Available [facility] (Lab) [address] [place], [address], 07/29/2023 13:22:40 07/29/1907/29/2023 CBC/C OMPLE TE BLD COUNT W/DIF F mean RBC HGB concentratio n 33.4 g/dL 31.0-3 6.0 Not Available [facility] (Lab) [address] [place], [address], 07/29/2023 13:22:40 07/29/1907/29/2023 CBC/C OMPLE TE BLD COUNT W/DIF F red cell distribution width 11.6 % 11.8-1 5.5 low Not Available [facility] (Lab) [address] [place], [address], 07/29/2023 13:22:40 07/29/1907/29/2023 CBC/C OMPLE TE BLD COUNT W/DIF F platelets 156 x10'3 /uL 150-40 0 Not Available [facility] (Lab) [address] [place], [address], 07/29/2023 13:22:40 07/29/19 24 07/29/2023 CBC/C OMPLE TE BLD COUNT W/DIF F mean platelet volume 11.5 fL 9.0-12 .4 Not Available [facility] (Lab) [address] [place], [address], 07/29/2023 13:22:40 07/29/19 24 07/29/2023 CBC/C OMPLE TE BLD COUNT W/DIF F neutrophils 53.3 % 39.0-7 2.0 Not Available [facility] (Lab) [address] [place], [address], 07/29/2023 13:22:40 07/29/1907/29/2023 CBC/C OMPLE TE BLD COUNT W/DIF F lymphocytes 33.2 % 16.0-4 7.0 Not Available [facility] (Lab) [address] [place], [address], 07/29/2023 13:22:40 07/29/19 24 07/29/2023 CBC/C OMPLE TE BLD COUNT W/DIF F monocytes 9.1 % 5.0-12 .0 Not Available [facility] (Lab) [address] [place], [address], 07/29/2023 13:22:40 07/29/1907/29/2023 CBC/C OMPLE TE BLD COUNT W/DIF F eosinophils 2.9 % 1.0-7. 0 Not Available [facility] (Lab) [address] [place], [address], 07/29/2023 13:22:40 07/29/1907/29/2023 CBC/C OMPLE TE BLD COUNT W/DIF F basophils 1.0 % 0.0-2. 0 Not Available [facility] (Lab) [address] [place], [address], 07/29/2023 13:22:40 07/29/1928 0707/29/2023 CBC/C OMPLE TE BLD COUNT W/DIF F immature granulocytes 0.5 % 0.00-0 .50 Not Available [facility] (Lab) [address] [place], [address], 07/29/2023 13:22:40 07/29/19 24 07/29/2023 CBC/C OMPLE TE BLD COUNT W/DIF F neutrophils, absolute count 2.04 x10'3 /uL 1.5-8. 0 Not Available [facility] (Lab) [address] [place], [address], 07/29/2023 13:22:40 07/29/19 24 07/29/2023 CBC/C OMPLE TE BLD COUNT W/DIF F lymphocytes, absolute count 1.27 x10'3 /uL 1.07-3 .43 Not Available [facility] (Lab) [address] [place], [address], 07/29/2023 13:22:40 07/29/19 24 07/29/2023 CBC/C OMPLE TE BLD COUNT W/DIF F monocytes, absolute count 0.35 x10'3 /uL 0.29-0 .99 Not Available [facility] (Lab) [address] [place], [address], 07/29/2023 13:22:40 07/29/19 24 07/29/2023 CBC/C OMPLE TE BLD COUNT W/DIF F eosinophils, absolute count 0.11 x10'3 /uL 0.02-0 .53 Not Available [facility] (Lab) [address] [place], [address], 07/29/2023 13:22:40 07/29/19 24 07/29/2023 CBC/C OMPLE TE BLD COUNT W/DIF F basophils, absolute count 0.04 x10'3 /uL 0.01-0 .08 Not Available [facility] (Lab) [address] [place], [address], 07/29/2023 13:22:40 07/29/19 24 07/29/2023 CBC/C OMPLE TE BLD COUNT W/DIF F immature granulocytes ,absolute 0.02 x10'3 /uL 0.00-0 .05 Not Available [facility] (Lab) [address] [place], [address], 07/29/2023 13:22:40 07/29/19 24 07/29/2023 CBC/C OMPLE TE BLD COUNT W/DIF F nucleated red blood cells 0.0 % -0 Not Available [facility] (Lab) [address] [place], [address], 07/29/2023 13:22:40 07/29/19 24 07/29/2023 CBC/C OMPLE TE BLD COUNT W/DIF F NRBC# 0.00 x10'3 /uL Not Available [facility] (Lab) [address] [place], [address], 07/29/2023 13:22:40 07/29/19 24 07/29/2023 LIPID PANEL cholesterol 133 mg/dL 140-19 9 low NIH VALERIA NSUS RECOM MENDA TION FOR ZACKERY STERO L: ADULT CHILD LOW RISK: <200 <170 BORDE RLINE : <200- 239 ----- HIGH RISK: >240 >200 Not Available [facility] (Lab) [address] [place], [address], 07/29/2023 13:48:39 07/29/1907/29/2023 LIPID PANEL triglyceride s 106 mg/dL 0-150 NIH VALERIA NSUS REPOR T RECOM MENDA TION FOR TRIGL YCERI RAMAKRISHNA: ADULT CHILD LOW RISK: <150 ----- BODER LINE: 150-1 99 ----- HIGH RISK: >200 ----- Not Available [facility] (Lab) [address] [place], [address], 07/29/2023 13:48:39 07/29/19 24 07/29/2023 LIPID PANEL HDL cholesterol 59 mg/dL 40- Not Available [facility] (Lab) [address] [place], [address], 07/29/2023 13:48:39 07/29/19 24 07/29/2023 LIPID PANEL LDL cholesterol, calculated 53 mg/dL 0-130 NIH VALERIA NSUS REPOR T RECOM MENDA TIONS FOR LDL: ADULT CHILD LOW RISK <130 <110 (OPTI MAL LDL) <100 ----- BORDE RLINE : 130-1 59 ----- HIGH RISK: >160 >130 A TRIGL YCERI DE RESUL T >400 INVAL IDATE S THE CALCU LATIO N FOR LDL FRACT IONAT ION - THE LDL RESUL T WILL NOT BE REPOR TRISTEN. Not Available [facility] (Lab) [address] [place], [address], 07/29/2023 13:48:39 07/29/19 24 07/29/2023 COMPR EHENS DAX METAB OLIC PANEL sodium 141 mmol/ L 137-14 5 Not Available [facility] (Lab) [address] [place], [address], 07/29/2023 13:48:46 07/29/19 24 07/29/2023 COMPR EHENS DAX METAB OLIC PANEL potassium 4.6 mmol/ L 3.5-5. 1 Not Available [facility] (Lab) [address] [place], [address], 07/29/2023 13:48:46 07/29/19 24 07/29/2023 COMPR EHENS DAX METAB OLIC PANEL chloride 105 mmol/ L 98-107 Not Available [facility] (Lab) [address] [place], [address], 07/29/2023 13:48:46 07/29/19 24 07/29/2023 COMPR EHENS DAX METAB OLIC PANEL carbon dioxide 32 mmol/ L 22-30 high Not Available [facility] (Lab) [address] [place], [address], 07/29/2023 13:48:46 07/29/19 24 07/29/2023 COMPR EHENS DAX METAB OLIC PANEL anion gap 8.6 mmol/ L 14-22 low Not Available [facility] (Lab) [address] [place], [address], 07/29/2023 13:48:46 07/29/19 24 07/29/2023 COMPR EHENS DAX METAB OLIC PANEL glucose 166 mg/dL 70-99 high Not Available [facility] (Lab) [address] [place], [address], 07/29/2023 13:48:46 07/29/19 24 07/29/2023 COMPR EHENS DAX METAB OLIC PANEL BUN 21 mg/dL 8-19 high Not Available [facility] (Lab) [address] [place], [address], 07/29/2023 13:48:46 07/29/19 24 07/29/2023 COMPR EHENS DAX METAB OLIC PANEL creatinine 0.95 mg/dL 0.66-1 .25 Not Available [facility] (Lab) [address] [place], [address], 07/29/2023 13:48:46 07/29/19 24 07/29/2023 COMPR EHENS DAX METAB OLIC PANEL GFR 56 Refer ence Range : [place] ge GFR Healt hy Adult : >60 mL/mi n/1.7 3 m2 Chron ic Kidne y Disea se: 15-60 mL/mi n/1.7 3 m2 Kidne y Failu re: <15/m L/min /1.73 m2 www.n iddk. nih.g ov The MDRD study equat ion has not been valid ated in child belkis <18 years of age; pregn ant women ; the elder ly >85 years of age; or in some racia l or ethni c subgr oups, such as Hispa nics. Outsi de the valid ated yani eters , estim ated GFR is less accur ate, requi ring clini shital judgm ent on a case- by-ca se basis . Clini shital inter preta tion for other races and ages must be made by the clini telma. The MDRD study equat ion has not been valid ated for the evalu ation of serum creat inine relat ed to nutri chato l statu s or medic ation usage . For perso ns <18 years of age, a pedia tric GFR calcu lator is avail able on the [facility] websi te: https ://anoop jones.kenyatta chappell.o purnima/pr ofess ional s/kdo qi/gf r_cal culat or Not Available [facility] (Lab) [address] [place], [address], 07/29/2023 13:48:46 07/29/19 24 07/29/2023 COMPR EHENS DAX METAB OLIC PANEL alkaline phosphatase 54 U/L 38-126 Not Available [facility] (Lab) [address] [place], [address], 07/29/2023 13:48:46 07/29/19 24 07/29/2023 COMPR EHENS DAX METAB OLIC PANEL alanine aminotransfe rase 21 U/L 0-35 Not Available [facility] (Lab) [address] [place], [address], 07/29/2023 13:48:46 07/29/19 24 07/29/2023 COMPR EHENS DAX METAB OLIC PANEL aspartate aminotransfe rase 30 U/L 15-37 Not Available [facility] (Lab) [address] [place], [address], 07/29/2023 13:48:46 07/29/19 24 07/29/2023 COMPR EHENS DAX METAB OLIC PANEL bilirubin, total 0.80 mg/dL 0.20-1 .30 Not Available [facility] (Lab) [address] [place], [address], 07/29/2023 13:48:46 07/29/19 24 07/29/2023 COMPR EHENS DAX METAB OLIC PANEL calcium 9.8 mg/dL 8.4-10 .2 Not Available [facility] (Lab) [address] [place], [address], 07/29/2023 13:48:46 07/29/19 24 07/29/2023 COMPR EHENS DAX METAB OLIC PANEL total protein 7.3 g/dL 6.3-8. 2 Not Available [facility] (Lab) [address] [place], [address], 07/29/2023 13:48:46 07/29/19 24 07/29/2023 COMPR EHENS DAX METAB OLIC PANEL albumin 4.4 g/dL 3.0-4. 4 Not Available [facility] (Lab) [address] [place], [address], 07/29/2023 13:48:46 07/29/19 24 07/29/2023 COMPR EHENS DAX METAB OLIC PANEL globulin 2.9 g/dL 2.6-4. 2 Not Available [facility] (Lab) [address] [place], [address], 07/29/2023 13:48:46 07/29/19 24 07/29/2023 COMPR EHENS DAX METAB OLIC PANEL A/G ratio 1.5 ratio 1.0-2. 0 Not Available [facility] (Lab) [address] [place], [address], 07/29/2023 13:48:46 07/29/19 24 07/29/2023 T4 FREE free T4 1.19 NG/dL 0.78-2 .19 Not Available [facility] (Lab) [address] [place], [address], 07/29/2023 14:31:42 07/29/19 24 07/29/2023 TSH thyroid-stim ulating hormone 2.070 uIU/m L 0.465- 4.680 Not Available [facility] (Lab) [address] [place], [address], 07/29/2023 14:43:13 07/29/19 24 07/29/2023 HEMOG LOBIN A1C HA1C 6.7 % 4.0-6. 0 high Diabe katja Scree carlo Crite phoebe: <5.7% Consi stent with absen ce of diabe katja 5.7-6 .4% Consi stent with incre ased risk for diabe katja (pred iabet es) >OR=6 .5% Consi stent with diabe katja REFER ENCE: Diabe katja Care 2016, 39(Nicole ppl.1 ):s13 -s22 Not Available [facility] (Lab) [address] [place], [address], 07/29/2023 14:46:43 07/29/19 24 07/29/2023 VITAM IN B12 (TALIA SY ) vb12 >1000 pg/mL 239-93 1 high Not Available [facility] (Lab) [address] [place], [address], 07/29/2023 15:45:18 11/23/19 24 11/23/2023 LIPID PANEL cholesterol 107 mg/dL 140-19 9 low NIH VALERIA NSUS RECOM MENDA TION FOR ZACKERY STERO L: ADULT CHILD LOW RISK: <200 <170 BORDE RLINE : <200- 239 ----- HIGH RISK: >240 >200 Not Available [facility] (Lab) [address] [place], [address], 11/23/2023 18:15:24 11/23/19 24 11/23/2023 LIPID PANEL triglyceride s 149 mg/dL 0-150 NIH VALERIA NSUS REPOR T RECOM MENDA TION FOR TRIGL YCERI RAMAKRISHNA: ADULT CHILD LOW RISK: <150 ----- BODER LINE: 150-1 99 ----- HIGH RISK: >200 ----- Not Available [facility] (Lab) [address] [place], [address], 11/23/2023 18:15:24 11/23/19 24 11/23/2023 LIPID PANEL HDL cholesterol 49 mg/dL 40- Not Available [facility] (Lab) [address] [place], [address], 11/23/2023 18:15:24 11/23/19 24 11/23/2023 LIPID PANEL LDL cholesterol, calculated 28 mg/dL 0-130 NIH VALERIA NSUS REPOR T RECOM MENDA TIONS FOR LDL: ADULT CHILD LOW RISK <130 <110 (OPTI MAL LDL) <100 ----- BORDE RLINE : 130-1 59 ----- HIGH RISK: >160 >130 A TRIGL YCERI DE RESUL T >400 INVAL IDATE S THE CALCU LATIO N FOR LDL FRACT IONAT ION - THE LDL RESUL T WILL NOT BE REPOR TRISTEN. Not Available [facility] (Lab) [address] [place], [address], 11/23/2023 18:15:24 11/23/19 24 11/23/2023 COMPR EHENS DAX METAB OLIC PANEL sodium 140 mmol/ L 137-14 5 Not Available [facility] (Lab) [address] [place], [address], 11/23/2023 18:15:31 11/23/19 24 11/23/2023 COMPR EHENS DAX METAB OLIC PANEL potassium 4.2 mmol/ L 3.5-5. 1 Not Available [facility] (Lab) [address] [place], [address], 11/23/2023 18:15:31 11/23/19 24 11/23/2023 COMPR EHENS DAX METAB OLIC PANEL chloride 106 mmol/ L 98-107 Not Available [facility] (Lab) [address] [place], [address], 11/23/2023 18:15:31 11/23/19 24 11/23/2023 COMPR EHENS DAX METAB OLIC PANEL carbon dioxide 26 mmol/ L 22-30 Not Available [facility] (Lab) [address] [place], [address], 11/23/2023 18:15:31 11/23/19 24 11/23/2023 COMPR EHENS DAX METAB OLIC PANEL anion gap 12.2 mmol/ L 14-22 low Not Available [facility] (Lab) [address] [place], [address], 11/23/2023 18:15:31 11/23/19 24 11/23/2023 COMPR EHENS DAX METAB OLIC PANEL glucose 134 mg/dL 70-99 high Not Available [facility] (Lab) [address] [place], [address], 11/23/2023 18:15:31 11/23/19 24 11/23/2023 COMPR EHENS DAX METAB OLIC PANEL BUN 37 mg/dL 8-19 high Not Available [facility] (Lab) [address] [place], [address], 11/23/2023 18:15:31 11/23/19 24 11/23/2023 COMPR EHENS DAX METAB OLIC PANEL creatinine 0.97 mg/dL 0.66-1 .25 Not Available [facility] (Lab) [address] [place], [address], 11/23/2023 18:15:31 11/23/19 24 11/23/2023 COMPR EHENS DAX METAB OLIC PANEL GFR 55 Refer ence Range : [place] ge GFR Healt hy Adult : >60 mL/mi n/1.7 3 m2 Chron ic Kidne y Disea se: 15-60 mL/mi n/1.7 3 m2 Kidne y Failu re: <15/m L/min /1.73 m2 www.n iddk. nih.g ov The MDRD study equat ion has not been valid ated in child belkis <18 years of age; pregn ant women ; the elder ly >85 years of age; or in some racia l or ethni c subgr oups, such as Hispa nics. Outsi de the valid ated yani eters , estim ated GFR is less accur ate, requi ring clini shital judgm ent on a case- by-ca se basis . Clini shital inter preta tion for other races and ages must be made by the clini telma. The MDRD study equat ion has not been valid ated for the evalu ation of serum creat inine relat ed to nutri chato l statu s or medic ation usage . For perso ns <18 years of age, a pedia tric GFR calcu lator is avail able on the [facility] websi te: https ://anoop chappell.yadi rg/pr ofess ional s/kdo qi/gf r_cal culat or Not Available [facility] (Lab) [address] [place], [address], 11/23/2023 18:15:31 11/23/19 24 11/23/2023 COMPR EHENS DAX METAB OLIC PANEL alkaline phosphatase 55 U/L 38-126 Not Available [facility] (Lab) [address] [place], [address], 11/23/2023 18:15:31 11/23/19 24 11/23/2023 COMPR EHENS DAX METAB OLIC PANEL alanine aminotransfe rase 18 U/L 0-35 Not Available [facility] (Lab) [address] [place], [address], 11/23/2023 18:15:31 11/23/19 24 11/23/2023 COMPR EHENS DAX METAB OLIC PANEL aspartate aminotransfe rase 24 U/L 15-37 Not Available [facility] (Lab) [address] [place], [address], 11/23/2023 18:15:31 11/23/19 24 11/23/2023 COMPR EHENS DAX METAB OLIC PANEL bilirubin, total 0.30 mg/dL 0.20-1 .30 Not Available [facility] (Lab) [address] [place], [address], 11/23/2023 18:15:31 11/23/19 24 11/23/2023 COMPR EHENS DAX METAB OLIC PANEL calcium 9.7 mg/dL 8.4-10 .2 Not Available [facility] (Lab) [address] [place], [address], 11/23/2023 18:15:31 11/23/19 24 11/23/2023 COMPR EHENS DAX METAB OLIC PANEL total protein 6.8 g/dL 6.3-8. 2 Not Available [facility] (Lab) [address] [place], [address], 11/23/2023 18:15:31 11/23/19 24 11/23/2023 COMPR EHENS DAX METAB OLIC PANEL albumin 3.9 g/dL 3.0-4. 4 Not Available [facility] (Lab) [address] [place], [address], 11/23/2023 18:15:31 11/23/19 24 11/23/2023 COMPR EHENS DAX METAB OLIC PANEL globulin 2.9 g/dL 2.6-4. 2 Not Available [facility] (Lab) [address] [place], [address], 11/23/2023 18:15:31 11/23/19 24 11/23/2023 COMPR EHENS DAX METAB OLIC PANEL A/G ratio 1.3 ratio 1.0-2. 0 Not Available [facility] (Lab) [address] [place], [address], 11/23/2023 18:15:31 11/23/19 24 11/23/2023 HEMOG LOBIN A1C HA1C 6.6 % 4.0-6. 0 high Diabe katja Scree carlo Crite phoebe: <5.7% Consi stent with absen ce of diabe katja 5.7-6 .4% Consi stent with incre ased risk for diabe katja (pred iabet es) >OR=6 .5% Consi stent with diabe katja REFER ENCE: Diabe katja Care 2016, 39(Nicole ppl.1 ):s13 -s22 Not Available [facility] (Lab) [address] [place], [address], 11/23/2023 20:13:45 08/10/19 24 08/10/2023 XR, chest , 1 view No observ ation record ed. [address] [address], [place], [address], 08/11/2023 07:52:46 11/12/19 24 11/11/2023 XR, chest , 2 view No observ ation record ed. [address] [address], [place], [address], 11/12/2023 07:39:29 11/12/19 24 11/11/2023 CT, brain , w/o contr ast No observ ation record ed. [address] [address], [place], [address], 11/12/2023 07:40:05 11/13/19 24 11/12/2023 lab* No observ ation record ed. [place] [id number] Not Available 2023 17:04:32 03/30/20 24 03/30/2024 XR, knee No observ ation record ed. [address] [facility], [place], [address], 03/31/2024 06:44:29 03/30/20 24 03/30/2024 XR, knee No observ ation record ed. [address] [facility] [address], [place], [address], 03/31/2024 06:45:52 03/30/20 24 03/30/2024 XR, hand No observ ation record ed. [address] [facility] [address], [place], [address], 03/31/2024 06:46:14 03/30/20 24 03/30/2024 XR, wrist No observ ation record ed. [address] [facility] [address], [place], [address], 03/31/2024 06:46:32 03/30/20 24 03/30/2024 XR, elbow No observ ation record ed. [address] [facility] [address], [place], [address], 03/31/2024 06:46:48 Result Notes None recorded. Problems Name Problem SNOMED Code Status Onset Date Resolution Date Notes Provider Name and Address Organization Details Recorded Time Renewal of prescription Active 2021 Not Available [facility] 3 09:16:05 Serum creatinine above reference range 071108990 Active 2021 Not Available [facility] 3 09:16:05 Anterior epistaxis 624727972 Active 2021 Not Available [facility] 3 09:16:05 Ureteric stone 26315553 Active Not Available [facility] 3 09:16:05 Type 2 diabetes mellitus without complication 798380075 Active Not Available [facility] 3 09:16:05 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 Not Available [facility] 3 09:16:05 Cystitis 83969116 Active Not Available [facility] 3 09:16:05 Hyperlipidemi a 79666460 Active Not Available [facility] 3 09:16:05 Essential hypertension 00980646 Active Not Available [facility] 3 09:16:05 Serum vitamin B12 below reference range 988093281 Active 2022 Helena Pittman CMA null, [facility] 3 16:41:38 Anemia 569087328 Active 2022 Ramona Roche null, [facility] 3 15:41:01 Cobalamin deficiency 414137109 Active 2022 Tonja Brown MA null, [facility] 3 12:29:12 Weight loss 71249272 Active 2022 Alfa Cornejo MD [address], [place], [address] , [facility] 3 17:07:55 Dementia 95202628 Active 2022 Alfa Cornejo MD [address], [address], [place], [address] , [facility] 3 11:51:22 Vitamin D deficiency 82170516 Active 2022 Alfa Cornejo MD [address], [address], [place], [address] , [facility] 3 11:55:38 Bacteremia 8669134 Active 2023 Alfa Cornejo MD [address], [place], [address] , [facility] 4 17:02:57 Headache 37527960 Active 2023 Helena Pittman CMA null, [facility] 4 12:39:35 Disturbance in speech 67439900 Active 2023 Helena Pittman CMA null, [facility] 4 14:39:16 Problem Notes None recorded. Procedures Surgical History Date Name Laterality Status Provider Name and Address Organization Details Recorded Time 11/23/19 Medicare Wellness CPT Code, subsequent completed Parisa Zacarias RN [facility] 11/23/2023 14:49:42 Hysterectomy completed Not Available [facility] 06/04/2022 09:14:24 Imaging Results Imaging Date Name Status LastModified by Organ [email or web address] Details LastModified Time 08/10/2023 XR, chest, 1 view completed [address], [place], [address], 08/11/2023 07:52:46 11/11/2023 XR, chest, 2 view completed [address], [place], [address], 11/12/2023 07:39:29 11/11/2023 CT, brain, w/o contrast completed [address] [facility], [place], [address], 11/12/2023 07:40:05 11/12/2023 lab* completed [place] [id number] Information no t available 11/13/2023 17:04:32 03/30/2024 XR, knee completed [email or web address] [place] [address] [address] [facility], [place], [address], 03/31/2024 06:44:29 03/30/2024 XR, knee completed [address] [facility], [place], [address], 03/31/2024 06:45:52 03/30/2024 XR, hand completed [address] [facility], [place], [address], 03/31/2024 06:46:14 03/30/2024 XR, wrist completed [address] [place] [address], [address], 03/31/2024 06:46:32 03/30/2024 [facility] [address] [facility], [place], [address], 03/31/2024 06:46:48 Procedure Notes None recorded. Medical Equipment None Reported. Allergies Allergen ID Allergen Name Allergen Category Reaction Reaction Severity Criticality Documentation Date Start Date Code Code System Note Provider Name and Address Organization Details Recorded Time 12258 shellfish derived food,medi cation rash Not available Not available 06/04/2022 Not Available [facility] 3 09:18:41 Medications Name Sig Start Date [...] Not Available Not Available Not Avai lable Os-Shital 500 + D3 once daily 02/21 completed [...] Available Vitals Date Recorded Body height Body mass index (BMI) Body weight Heart rate Body temperature Oxygen saturation Oxygen saturation in Arterial blood by Pulse oximetry Systolic blood pressure Diastolic blood pressure Provider Name and Address Organization Details Last Updated DateTime 3 157.48 cm 19.4 kg/m2 64090.7 9 g 76 /min 97 [degF] 97 % 97 % 132 mm[Hg] 68 mm[Hg] [facility] 3 11:53:26 Date Recorded Body height Body mass index (BMI) Body weight Heart rate Body temperature Oxygen saturation Oxygen saturation in Arterial blood by Pulse oximetry Systolic blood pressure Diastolic blood pressure Provider Name and Address Organization Details Last Updated DateTime 3 157.48 cm 20.9 kg/m2 35237.5 3 g 82 /min 97 [degF] 96 % 96 % 132 mm[Hg] 68 mm[Hg] [facility] 3 11:42:24 Date Recorded Body height Body mass index (BMI) Body weight Heart rate Body temperature Oxygen saturation Oxygen saturation in Arterial blood by Pulse oximetry Systolic blood pressure Diastolic blood pressure Provider Name and Address Organization Details Last Updated DateTime 4 157.48 cm 20 kg/m2 60989.3 6 g 82 /min 97 [degF] 98 % 98 % 138 mm[Hg] 60 mm[Hg] Ramona Roche [facility] [employer] [facility] [employer] [facility] 4 14:52:20 Date Recorded Body height Body mass index (BMI) Body weight Heart rate Body temperature Oxygen saturation Oxygen saturation in Arterial blood by Pulse oximetry Systolic blood pressure Diastolic blood pressure Provider Name and Address Organization Details Last Updated DateTime 4 157.48 cm 20.7 kg/m2 13897.9 4 g 71 /min 97.8 [degF] 95 % 95 % 126 mm[Hg] 62 mm[Hg] Ryann Merino Helder [employer] [facility] [employer] [facility] 4 14:33:41 Date Recorded Body height Body weight Heart rate Body temperature Oxygen saturation Oxygen saturation in Arterial blood by Pulse oximetry Systolic blood pressure Diastolic blood pressure Provider Name and Address Organization Details Last Updated DateTime 4 157.48 cm 69549.2 7 g 76 /min 97 [degF] 98 % 98 % 142 mm[Hg] 80 mm[Hg] JOSE CARLOS Hare [employer] [facility] [employer] [facility] 4 14:48:28 Social History Question Answer Notes LastModified by Organizat ion Details LastModified Time Tobacco Smoking Status Never Smoker Not Available [facility] 06/04/2022 09:14:10 Do You Have An Advance Directive? Yes [email or web address] Information not available 11/23/2023 What Is Your Level Of Alcohol Consumption? None [id number] Information not available 06/04/2022 Are You Blind Or Do You Have Difficulty Seeing? No [id number].[id number] 9001 Information not available 06/04/2022 In The 14 Days Before Symptom Onset, Have You Had Close Contact With A Laboratory-confir med COVID-19 While That Case Was Ill? No [id number] Information not available 06/04/2022 In The 14 Days Before Symptom Onset, Have You Had Close Contact With A Person Who Is Under Investigation For COVID-19 While That Person Was Ill? No [id number] Information not available 06/04/2022 Are You Deaf Or Do You Have Serious Difficulty Hearing? No MIGRATION.[id number] 2289 Information not available 06/04/2022 What Type Of Diet Are You Following? DIABETIC [id number].[id number] Information not available 06/04/2022 Have There Been Any Changes To Your Family Or Social Situation? No MIGRATION.[id number] 0897 Information not available 06/04/2022 What Is The Fluoride Status Of Your Home? Unknown [id number].[id number] 2347 Information not available 06/04/2022 Are There Any Guns Present In Your Home? No MIGRATION.[id number] 7695 Information not available 06/04/2022 Do You Use Insect Repellent Routinely? No MIGRATION.[id number] 6642 Information not available 06/04/2022 Where Do You Live? Other Asst Living [email or web address] Information not available 11/23/2023 Guns Present In The Home? No [email or web address] Information not available 11/23/2023 Are You Able To Care For Yourself? No [email or web address] Information not available 11/23/2023 Are You Blind Or Do Yo Have Difficulty Seeing? No [email or web address] Information not available 11/23/2023 Are You Deaf Or Do You Have Serious Difficulty Hearing? No [email or web address] Information not available 11/23/2023 Live Alone Of With Others? With Others [email or web address] Information not available 11/23/2023 Do You Have A Medical Power Of Well Drill Operator Rotary Drill? Yes [email or web address] Information not available 11/23/2023 What Was The Date Of Your Most Recent Tobacco Screening? 11/23/2023 [email or web address] Information not available 11/23/2023 Do You Have Any Pets? No MIGRATION.[id number] 5634 Information not available 06/04/2022 Do You Use Your Seat Belt Or Car Seat Routinely? Yes MIGRATION.[id number] 2290 Information not available 06/04/2022 Do You Have Smoke And Carbon Monoxide Detectors In Your Home? Yes MIGRATION.[id number] 3632 Information not available 06/04/2022 Are You Passively Exposed To Smoke? No MIGRATION.095850 5142 Information not available 06/04/2022 Are There Any Smokers In Your House? No MIGRATION.641725 2646 Information not available 06/04/2022 Do You Use Sunscreen Routinely? No MIGRATION.059514 8090 Information not available 06/04/2022 Have You Recently Traveled Abroad? No MIGRATION.873411 2332 Information not available 06/04/2022 Sex: Unknown Functional Status Question Answer Note LastModified by Organizat ion Details LastModified Time Do you have difficulty walking or climbing stairs? No MIGRATION.[id number] 026 Information not available 06/04/2022 Do you have transportation difficulties? No MIGRATION.[id number] 026 Information not available 06/04/2022 Are you able to walk? YESWOREST MIGRATION.[id number] 026 Information not available 06/04/2022 Do you have difficulty doing errands alone? Yes Information not available 11/23/2023 Are you able to care for yourself? No [email or web address] Information n ot available 11/23/2023 Do you have difficulty dressing or bathing? No [id number] Information not available 06/04/2022 What is your exercise level? Occasional [id number] Information not available 06/04/2022 Mental Status Question Answer Note LastModified by Organization D etails LastModified Time Do you have difficulty concentrating, remembering or making decisions? Yes [id number] Information no t available 11/23/2023 Family History Relationship Description Onset Age of this Age Resolved Age Notes LastModified by Organization Details LastModified Time Mother Heart disease [id number] Not available 06/04/2022 09:14:24 Mother Hypertensive disorder [id number] Not available 06/04/2022 09:14:24 Unspecified Relation Diabetes mellitus [id number] Not available 06/04/2022 09:14:24 Notes:Mother 94 infirmi ties Father 85 from CVA On brother and sister both living. Brother has a hx of CAD and CABG. Sister in good health Medical History Condition Response NERVE DISEASE N BLINDNESS N RHEUMATIC FEVER N KIDNEY STONES N BLADDER PROBLEMS N MRSA N OTHER # 1 N POLIO N LUNG DISEASE/DISORDER N HISTORY OF DRUG ABUSE N COPD N RADIATION / CHEMOTHERAPY N Other # 2 N BLOOD DISEASES [...] GLAUCOMA N FOOT PROBLEM N DIVERTICULITIS N SLEEP APNEA N CHICKENPOX N INFECTIOUS DISEASE N PROSTATE N HEART ARRHYTHMIA N INSOMNIA N HIGH CHOLESTEROL / HYPERLIPIDEMIA Y EYE PROBLEMS N HYPERTHYROIDISM N EDEMA N CHRONIC PAIN SYNDROME N HYPOTHYROIDISM N CONSTIPATION N CAROTID BLOCKAGE N BACK / NECK PROBLEMS N HAVE YOU BEEN HOSPITALIZED OR SEEN IN [facility] IN THE PAST YEAR ? N ATHEROSCLEROSIS [...] virus, trivalent, preservative 4 completed Not Available [facility] hospital 06/04/2022 09:18:31 Influenza, split virus, trivalent, preservative 3 completed Not Available [facility] 06/04/2022 09:18:32 COVID-19, mRNA, LNP-S, PF, 30 mcg/0.3 mL dose 1 completed Not Available [facility] 06/04/2022 09:18:32 COVID-19 Non-US Vaccine, Product Unknown 1 completed Not Available [facility] access hospital 06/04/2022 09:18:32 COVID-19 Non-US Vaccine, Product Unknown 1 completed Not Available Critical access hospital 06/04/2022 09:18:32 influenza, unspecified formulation 2 completed Not Available [facility] 06/04/2022 09:18:32 zoster live 5 completed Not Available [facility] 06/04/2022 09:18:32 Influenza, high-dose, quadrivalent, PF 2 completed Not Available [facility] 06/04/2022 09:18:32 Influenza, high-dose, quadrivalent, PF 0 completed Not Available [facility] 06/04/2022 09:18:32 Influenza, high-dose, trivalent, PF 9 completed Not Available [facility] 06/04/2022 09:18:33 pneumococcal polysaccharide PPV23 9 completed Not Available [facility] 06/04/2022 09:18:33 Influenza, high-dose, trivalent, PF 8 completed Not Available [facility] 06/04/2022 09:18:33 Influenza, high-dose, trivalent, PF 6 completed Not Available [facility] 06/04/2022 09:18:33 Influenza, high-dose, trivalent, PF 5 completed Not Available Critical access hospital 06/04/2022 09:18:33 Pneumococcal conjugate PCV 13 4 completed Not Available Critical access hospital 06/04/2022 09:18:33 Pneumococcal conjugate PCV20, polysaccharide [id number] conjugate, adjuvant, PF 4 completed Alfa Cornejo MD [address] [facility], [facility] [address], [place], [address], [facility] 03/21/2024 15:02:14 Past Encounters Encounter ID Performer Location Encounter Start Date Encounter Closed Date Diagnosis/Indication Diagnosis SNOMED-CT Code Diagnosis ICD10 Code [id number] [facility] Internal Med [facility] [address] [facility], [facility] [address] [place] [address] 07/18/2020 00:00:00 07/18/2020 14:47:24 [id number] [facility] Internal Med [facility] [place] [address] [address] 11/14/2020 00:00:00 11/14/2020 14:57:01 [id number] [facility] [place] [address] [address] 03/13/2021 00:00:00 03/13/2021 15:33:37 [id number] [facility] Internal Med [facility] [place] [address] [place] [address] [address] 04/10/2021 00:00:00 04/10/2021 12:17:16 [id number] [facility] [address] [place] [address] 04/15/2021 00:00:00 04/15/2021 10:20:22 [id number] [facility] Internal Med [facility] [place] [address] [address] 07/17/2021 00:00:00 07/17/2021 15:54:48 [id number] [facility] [address] [place] [address] 09/24/2021 00:00:00 09/24/2021 14:43:29 [id number] [facility] [place] [address] [address] 11/20/2021 00:00:00 11/20/2021 15:08:50 [id number] [facility] Internal Med [facility] [place] [address] [address] 03/26/2022 00:00:00 03/26/2022 15:17:52 [id number] Alfa Cornejo MD [facility] Internal Med [facility] [place] [address] [address] 06/09/2022 16:35:41 06/09/2022 17:23:47 Minimal cognitive impairment 323365589 G31.84 Hyperlipidemia 22371700 E78.5 Essential hypertension 16638896 I10 Type 2 erik betes mellitus without complication 867447704 E11.9 [id number] Alfa Cornejo MD [facility] Internal Med [facility] [address] [address] 07/23/2022 15:20:26 07/23/2022 15:57:35 Essential hypertension 96195006 I10 Type 2 erik betes mellitus without complication 953783038 E11.9 Hyperlipidemia 06640518 E78.5 Mild neuro cognitive disorder 636130186 G31.84 [id number] Alfa Cornejo MD [facility] Internal Med [facility] [address] [address] 11/20/2022 11:52:56 11/20/2022 12:15:51 Essential hypertension 69474609 I10 Hyperlipidemia 41581478 E78.5 Type 2 erik betes mellitus without complication 507967134 E11.9 Cobalamin deficiency 190 272475 E53.8 [id number] Alfa Cornejo MD [facility] Internal Med [facility] [address] [address] 03/12/2023 11:32:54 03/12/2023 12:01:16 Essential hypertension 32387369 I10 Hyperlipidemia 81451749 E78.5 Type 2 erik betes mellitus without complication 050037451 E11.9 Dementia 18121248 F03.90 Vitamin D deficiency 347 89509 E55.9 [id number] Alfa Cornejo MD [facility] Internal Med [facility] [address] [address] 07/20/2023 14:38:05 07/20/2023 15:18:26 Essential hypertension 31729685 I10 Hyperlipidemia 62724860 E78.5 Dementia 69596453 F03.90 Type 2 erik betes mellitus without complication 705826274 E11.9 [id number] Alfa Cornejo MD [facility] Internal Med [facility] [address] [address] 11/23/2023 14:24:23 11/23/2023 15:13:32 Adult health examination 115130455 Z00.00 Screening for disorder 098298113 Z13.9 Essential hypertension 21568773 I10 Dementia 37256870 F03.90 Type 2 erik betes mellitus without complication 807511031 E11.9 Hyperlipidemia 48961050 E78.5 [id number] Alfa Cornejo MD [facility] Internal Med [facility] [address] [facility], [facility] [address] [place] [address] 03/21/2024 14:37:00 03/21/2024 15:15:40 Administration of pneumococcal vaccine 79662761 Z23 Essential hypertension 72732819 I10 Hyperlipidemia 26482949 E78.5 Type 2 erik betes mellitus without complication 317309107 E11.9 Dementia 51405311 F03.90 Health Concerns Section Related Observation LastModified by Organization Detai ls LastModified Time None Recorded Concern Status LastModified by Organization Details LastModified Time None Recorded Advance Directives Directive Y: Payers Encounter Date Sequence Insurance Name Policy Number Policy Arthur Covered Member ID Arthur Member ID Guarantor Name 11/20/2022 1 [employer] (MEDICARE REPLACEMENT/A DVANTAGE - PPO) Claudia Hernandez [id number] Claudia Hernandez 03/12/2023 1 [employer] (MEDICARE REPLACEMENT/A DVANTAGE - PPO) Claudia Hernandez [id number] Claudia Hernandez 07/20/2023 1 [employer] (MEDICARE REPLACEMENT/A DVANTAGE - PPO) Claudia Hernandez [id number] Claudia Hernandez 11/23/2023 1 [employer] (MEDICARE REPLACEMENT/A DVANTAGE - PPO) Claudia Hernandez [id number] Claudia Hernandez 03/21/2024 1 [employer] (MEDICARE REPLACEMENT/A DVANTAGE - PPO) Claudia Hernandez [id number] Claudia Hernandez Notes Date Note Type Note Provider Name and Address Organization Details Recorded Time 3 text/html Patient Name: Claudia HernandezDate Of Service: November ( 11.20.2022 ): 1940 Age: 81 There has been approximately a 13 lb weight loss since 07/23/2022. This represents approximately a 10.9% change in weight. Weight change attributable to lifestyle changes. Vital Signs:Blood Pressure: Sitting Rt. Arm 132/76Pulse: Sitting 76 /min and RegularRespirations: 12Height 62 in or 1.6 mWeight 106 lb or 48.1 kgBMI 19.4Temperature: 97 F or 36.1 CPulse Oximetry: 97 % at rest on no oxygen Chief Complaint: Addressed in HPI Problems or conditions discussed in the HPI were the only ones reviewed during the encounter.Only social and family history addressed in the HPI were reviewed during this encounter. Attendant(s): None Constitutional and Systemic Symptoms: none Medication Reconciliation: from medication list. Abqjynzqfqu14/16/2023: 06/19/2022: CT scan of the brain without contrast showed age-related changes and mild diffuse volume loss and moderate scattered white matter hypo attenuation consistent with chronic small-vessel ischemic disease. Some mucus clearing as noted in the left sphenoid sinus. History of Present Illness #1. Essential Hypertension: Stage: normal Interval Neurological Complaints no headaches, dizziness, weakness, visual changes, ataxia, aphasia and apraxia. No shortness of breath, orthopnea or cardiovascular symptoms. No other symptoms related to end organ damage. Pressure has been under excellent control. Currently normal. No other end organ symptoms or findings. Therapy reviewed regarding management of hypertension and includes salt restriction and Norvasc. #2. Type II Hypercholesterolaemia: Currently taking medication and tolerating well. [...] non healing lesions. [facility] Calculated MB mg%. Average blood sugars 100-115 mg%. Checking sugars : approximately once daily Medication Types Include: Metformin and Sulfonylureas Secondary complications include none. Macro-vascular complications include none. Therapy reviewed regarding diabetic management and include Glimepiride and Glucophage Compliance: good Renal Protection: calcium blockers Lipid management: statins Urinary microalbumin: A1 . Ophthalmological: has seen eye doctor within the last year #4. History of B12 deficiency. Has received some test done recently. Overall is doing well otherwise. Joint no signs of any progressive dementia and or and any neuropathy.:Medication List Reviewed and Reconciled 11/20/2022Vitamin E 400 IU DailyVitamin D 1000 IU DailyGlucophage 1 GM (TABLET - ORAL) One Twice DailyLipitor 20 MG (TABLET - ORAL) DailyNorvasc 10 MG (TABLET - ORAL) DailyGlimepiride 1 MG TABLET QdAricept 5 MG TABLET, FILM COATED Once DailyADRs List Reviewed 11/20/2022Shellfish UnknownVaccination and Vefumvviwqga8044-40 Kaqcsafpx4506-14 Covid Dfwbgp6930-95 Covid Booster Lgbkfu0492-75 Pneumovax 929355-24 Prevnar 13Surgical HistoryBladder Stone, Vaginal Hysterectomy, Lumpectomy Right BreastPreventative Testing Confirmed by Our Lcopzvn6006/13/2022 ALBUMIN 4.6 G/DL H006/13/2022 MICRO ALBUMIN 80.9 MG/L H006/13/2022 HAIC 6.7 % H011/24/2019 MAMMOGRAM DEXA SCANSocial HistoryDoes not smoke or drinkFamily HistoryMother 94 infirmitiesFather 85 from DVAOn brother and sister both living. Brother has a hx of CAD and CABG. Sister in good health Alfa Cornejo MD [address] [facility] [address], [place], [address], [facility] [employer] 11/20/2022 12:12:52 3 text/html Patient Name: Claudia Kraus Of Service: March ( 03.12.2023 ): 1940 Age: 82 There has been approximately a 8 lb weight gain since 11/20/2022. This represents approximately a 7.5% change in weight. Weight change attributable to lifestyle changes. Vital Signs:Blood Pressure: Sitting Rt. Arm 132/68Pulse: Sitting 82 /min and RegularRespiratory Rate: 12Height 62 in or 1.6 mWeight 114 lb or 51.7 kgBMI 20.8Temperature: 97 F or 36.1 CPulse Oximetry: 96 % at rest on no oxygen Chief Complaint: Addressed in HPI Problems or conditions discussed in the HPI were the only ones reviewed during the encounter.Only social and family history addressed in the HPI were reviewed during this encounter. Attendant(s): NoneConstitutional and Systemic Symptoms:none Medication Reconciliation: from medication list. Jehfncwzibw47/16/2023: CT scan of the brain without contrast [...] includes salt restriction and Norvasc. #2. Type II Hypercholesterolaemia: Currently taking medication and tolerating well. No interval complaints of any muscle pain or arthralgia. No significant liver changes with medications. Last lipid panel: fair control. Therapy reviewed regarding treatment of cholesterol management and include diet and Lipitor. #3. Type II Diabetes: Has had no polyuria polyphagia or polydipsia. Has had no hypoglycemic like responses. No new history of any numbness, tingling, weakness or visual problems. No nausea, anorexia or other constitutional symptoms. There has been no foot problems or non healing lesions. [facility]: 6.3 Calculated MB mg%. Average blood sugars 125-150 mg%. Checking sugars : several times a week Medication Types Include: Metformin and Sulfonylureas Secondary complications include none. Macro-vascular complications include none. Therapy reviewed regarding diabetic management and include Glimepiride and Glucophage Compliance: good Renal Protection: not required at this stage Lipid management: statins Urinary microalbumin: A1 . Ophthalmological: has seen eye doctor within the last year #4. Hx of dementia. Currently stable. There has been no clinical change in cognitive functions. Performance of activities of daily living has remained unchanged. Currently taking Aricept Mini-Cog Score: Mild Cognitive ImpairmentMedication List Reviewed and Reconciled 03/12/2023Vitamin E 400 IU DailyVitamin D 1000 IU DailyGlucophage 1 GM (TABLET - ORAL) 1/2 Tab Twice DailyLipitor 20 MG (TABLET - ORAL) DailyNorvasc 10 MG (TABLET - ORAL) DailyGlimepiride 1 MG TABLET QdAricept 5 MG TABLET, FILM COATED Once DailyADRs List Reviewed 03/12/2023Shellfish UnknownVaccination and Ruptlnuesixf6190-01 Jaxnaxjxn0406-48 Covid Lpcjeb1901-88 Covid Booster Whqbxc6403-83 Rtldxzkyi7633-81 Prevnar 13 GcSurgical HistoryBladder Stone, Vaginal Hysterectomy, Lumpectomy Right BreastPreventative Testing Confirmed by Our Umgirir1011/20/2022 HAIC 6.3 % H006/13/2022 ALBUMIN 4.6 G/DL H006/13/2022 MICRO ALBUMIN 80.9 MG/L H011/24/2019 MAMMOGRAM DEXA SCANSocial HistoryDoes not smoke or drinkFamily HistoryMother 94 infirmitiesFather 85 from DVAOn brother and sister both living. Brother has a hx of CAD and CABG. Sister in good health Alfa Cornejo MD [address] [facility], [facility] [address], [place], [address], [facility] [employer] 03/12/2023 11:56:19 4 text/html Patient Name: Claudia Kraus Of Service: Thursday ( 11.23.2023 ): 1940 Age: 82 There has been approximately a 3.5 lb weight gain since 07/20/2023. This represents approximately a 3.2% change in weight. Weight change attributable to lifestyle changes. Vital Signs:Blood Pressure: Sitting Rt. Arm 126/62Pulse: Sitting 71 /min and RegularRespiratory Rate: 14Height 62 in or 1.6 mWeight 113 lb or 51.3 kgBMI 20.7Temperature: 97.8 F or 36.6 CPulse Oximetry: 95 % at rest on no oxygen Chief Complaint: Addressed in HPI Problems or conditions discussed in the HPI were the only ones reviewed during the encounter.Only social and family history addressed in the HPI were reviewed during this encounter. A significant, separate E/M service was performed to evaluate the current and new problems. Attendant(s): DaughterConstitutional and Systemic Symptoms:none Medication Reconciliation: from medication list. Bhiegeyrjhd79/16/2023: CT scan of the brain without contrast showed age-related changes and mild diffuse volume loss and moderate scattered white matter hypo attenuation consistent with chronic small-vessel ischemic disease. Some mucus clearing as noted in the left sphenoid sinus. History of Present Illness Reviewed the findings of the preventative health visit. Addressed all areas with the patient, patient's family or caregivers. Preventative examinations and testing immunizations - vaccinations, colonic neoplasm screening and mammograms refusing all reviewed and ordered where patient was amenable to the recommendations. Cognitive function demonstrated MCI. Depression addressed and where necessary medications were adjusted or instituted. End of life and living will briefly discussed with patient and where these can be filled out and legally executed. Other blood and imaging studies were ordered if considered necessary. Other recommendations may be found in the encounter note. #1. Essential Hypertension: Stage: Stage I Interval [...] includes salt restriction and Norvasc. #2. Type II Hypercholesterolaemia: Currently taking medication and tolerating well. No interval complaints of any muscle pain or arthralgia. No significant liver changes with medications. Last lipid panel: fair control. Therapy reviewed regarding treatment of cholesterol [...] lesions. The last HAIC was [facility] HAIC: 6.7 Calculated MB mg%. Average blood sugars 125-150 mg%. Checking sugars : several times a week Medication Types Include: Metformin and Sulfonylureas Secondary complications include none. Macro-vascular complications include none. Therapy reviewed regarding diabetic management and include Glimepiride and Glucophage Compliance: good Renal Protection: starting on a calcium juanita Lipid management: statins Urinary microalbumin: A1 . Ophthalmological: has seen eye doctor within the last year #4. Hx of dementia. Currently stable. There has been no clinical change in cognitive functions. Performance of activities of daily living has remained unchanged. Currently taking Aricept but because his mood fluctuation will add some escitalopram 5 mg once daily to current regimen. Mini-Cog Score: Mild Cognitive Impairment Active Medication ListVitamin E 400 IU DailyVitamin D 1000 IU DailyGlucophage 500 MG One Twice A DayLipitor 10 MG TABLET, FILM COATED DailyNorvasc 10 MG (TABLET - ORAL) DailyGlimepiride 1 MG TABLET QdAricept 5 MG TABLET, FILM COATED Once Daily Adverse Drug Reactions ReviewedShellfish Unknown Vaccination and Ndfraxdafxva6073-61 Idbylbubl0702-77 Covid Gtftbs1490-59 Covid Booster Rzjunq6365-28 Mtsdskqed4677-35 Prevnar 13 Surgical Twwifap6114-98 Bladder Frfhb4733-61 Vaginal Ekmdgsrihzcs8098-85 Lumpectomy Right Breast Preventative Testing( ) 07/29/2023 Albumin 4.4 G/DL( ) 07/29/2023 HAIC 6.7 % H( ) 06/13/2022 Micro Albumin 80.9 MG/L H(X) 11/24/2019 Mammogram 11/23/2021(X) 11/24/2019 DEXA Scan 11/23/2021 Social HistoryDoes not smoke or drink Family HistoryMother 94 infirmitiesFather 85 from DVAOn brother and sister both living. Brother has a hx of CAD and CABG. Sister in good health Alfa Cornejo MD [address] [address], [place], [address], [facility] [employer] 11/23/2023 15:08:34 4 text/html Patient Name: Claudia Kraus Of Service: Thursday ( 03.21.2024 ): 1940 [...] Systemic Symptoms:none Medication Reconciliation: from medication list. Ydivxbajlqu26/16/2023: CT scan of the brain without contrast [...] non healing lesions. The [facility] HA[facility] was [facility] HAIC: 6.6 Calculated MB mg%. CGM: No. [...] 2016- PREVNAR 13 GC(X) 2021- INFLUENZA( ) 2018- PNEUMOVAX( ) 2023- PREVNAR 20(X) 2021-01 COVID PFIZER(X) 2021-01 COVID BOOSTER PFIZER Surgical Vzcqzcp7318-57 Bladder Sugut6755-29 Vaginal Skktnnshtyof2518-59 Lumpectomy Right Breast Preventative Testing( ) 11/23/2023 [...] Date: 11/23/2023HA1C 6.6 4.0-6.0 %LIPID PANEL Date: 11/23/2023HOLESTEROL 107 140-199 MG/DLTRIGLYCERIDES 149 0-150 MG/DLHDL CHOLESTEROL 49 40- MG/DLLDL CHOLESTEROL, CALCULATED 28 0-130 MG/DLCBC/COMPLETE BLD COUNT W/DIFF Date: 07/29/2023WHITE BLOOD CELLS 3.8 4.2-10.8 X10'3/ULHEMOGLOBIN 15.1 12.0-15.6 G/DLHEMATOCRIT 45.2 35.7-45.7 %PLATELETS 156 150-400 X10'3/UL Alfa Cornejo MD [address] [facility] [address], [place], [address], [facility] 03/21/2024 15:08:42 OBGyn Episode No OBEpisode recorded.
--- OUTSIDE RECORDS SUMMARY | 2024-04-06 20:27 | XMS_ITS | Clinical Summary ---
Author Organization [facility] Address [address] [place] [address]. [place], [place] [address] [place] [address] Care Team Providers Care University Relations Director Name Role Phone Alfa Cornejo MD Primary Care Provider [phone] Allergies No known active allergies Social History Tobacco Use Types Packs/Day Years Used Date Smoking Tobacco: Never Assessed Comments Unknown Sex and Gender Information Value Date Recorded Sex Assigned at Not on file Legal Sex Female 3:48 PM CDT Gender Identity Not on file Sexual Orientation Not on file Last Filed Vital Signs Vital Sign Reading Time Taken Comments Blood Pressure 163/100 09/19/2021 4:30 PM CDT Pulse - - Temperature - - Respiratory Rate - - Oxygen Saturation 97% 09/19/2021 4:30 PM CDT Inhaled Oxygen Concentration - - Weight 52.2 kg (115 lb) 09/19/2021 3:55 PM CDT Height 160 cm (5' 3 ) 09/19/2021 3:55 PM CDT Body Mass Index 20.37 09/19/2021 3:55 PM CDT Plan of Treatment Health Maintenance Due Date Last Done Comments DTaP, Tdap and Td Vaccines (1 - Tdap) 1959 Annual Medicare Wellness Visit 12/18/2003 RSV Immunization or 60+ Years (1 - 1-dose 75+ series) 2013 Zoster Vaccines (2 of 3) 06/01/2014 04/06/2014 COVID-19 Vaccine (5 - season) 2023 08/12/2021, 01/27/2021, 07/24/2020, Additional history exists Influenza Adult (#1) 2024 02/21/2019, 02/15/2018, 03/06/2016, Additional history exists Pneumococcal Vaccine: 65+ Years Completed 02/21/2019, 04/04/2014 Meningococcal Vaccine Aged Out No leonel joie eligible based on patient's age to complete this topic RSV Immunizations Under 20 Months Aged Out No longer eligible based on patient's age to complete this topic Insurance MEDICARE [facility] Care Teams University Relations Director Relationship Specialty Start Date End Date Alfa Cornejo MD [address] [place] [phone] PCP - General INTERNAL MEDICINE 09/19/21
--- OUTSIDE RECORDS SUMMARY | 2024-04-06 20:27 | XMS_ITS | Encounter Summary ---
Author Organization [facility] Address [address] [place] [address]. [place], [place] [id number] [place] [address] Care Team Providers Care Sheet Metal Welder Name Role Phone Alfa Cornejo MD Primary Care Provider [phone] Encounter Details Date Type Department Care Team (Latest Contact Info) Description 09/19/2021 Travel Social History Tobacco Use Types Packs/Day Years Used Date Smoking Tobacco: Never Assessed Comments Unknown Sex and Gender Information Value Date Recorded Sex Assigned at Not on file Legal Sex Female 3:48 PM CDT Gender Identity Not on file Sexual Orientation Not on file COVID-19 Exposure Response Date Recorded In the last 10 days, have yo u been in contact with someone who was confirmed or suspected to have Coronavirus/COVID-19? No / Unsure 09/19/2021 3:49 PM CDT documented as of this encounter Plan of Treatment Not on file documented as of this encounter Visit Diagnoses Not on filedocumented in this encounter Care Teams Sheet Metal Welder Relationship Specialty Start Date End Date Alfa Cornejo MD 4 [facility] [address] [place] [address] PCP - General INTERNAL MEDICINE 09/19/21 documented as of this encounter
--- OUTSIDE RECORDS SUMMARY | 2024-04-06 20:27 | XMS_ITS | Encounter Summary ---
Author Organization [facility] Address [address] [place] [address]. [place] [address] [place] [address] Care Team Providers Care Grain Shoveler Name Role Phone Alfa Cornejo MD Primary Care Provider [phone] Reason for Referral * (Routine) - Closed Specialty Diagnoses / Procedures Referred By Contac t Referred To Contact Procedures EPISTAXIS MANAGEMENT Reynaldo Chaudhary MD [address] [facility] [address] [place] [address] Phone: tel: fax: Referral ID Status Reason Start Date Expiration Date Visits Re quested Visits Authorized [id number] Closed 09/19/2021 10/19/2022 1 1 Reason for Visit * Reason Comments Nosebleeds Encounter Details Date Type Department Care Team (Late st Contact Info) Description 09/19/2021 3:48 PM CDT - 09/19/2021 5:04 PM CDT Emergency [facility] Emergency Room [address] [place] [address] Reynaldo Chaudhary MD [address] [id number] Nosebleeds Discharge Disposition: Home or Self Care (Routine Discharge) Social History Tobacco Use Types Packs/Day Years [...] PM CDT documented as of this encounter Last Filed Vital Signs Vital Sign Reading [...] Mass Index 20.37 09/19/2021 3:55 PM CDT documented in this encounter Discharge Instructions * Attachments The following attachments cannot be sent through Care Everywhere. * Nosebleeds Discharge Instructions (Citizen Of [place]) documented in this encounter Medications at Time of Discharge cephALEXin (KEFLEX) 500 MG capsule Take 1 capsule (500 mg total) by mouth 3 (three) times daily for 2 days. 6 capsule 09/19/2021 09/21/2021 documented as of this encounter ED Notes * Reynaldo Chaudhary MD - 09/19/2021 4:04 PM CDTAssociated Order(s): Epistaxis Management Chief Complaint Chief Complaint Patient presents with ??? Nosebleeds History of Present Illness This patient is an 80yo female with no pertinent PMH who presents to the ED for evaluation of epistaxis. She notes onset of heavy bleeding from the right nare just prior to arrival. She is unable to control the bleeding with direct pressure. So, she presents for evaluation. No recent trauma or illness. The patient's only antiplatelet/anticoagulant is a baby aspirin. Medical History ALLERGIES: No Known Allergies MEDICATIONS: Prior to Admission medications Medication Sig Start Date End Date Taking? Authorizing Provider cephALEXin (KEFLEX) 500 MG capsule Take 1 capsule (500 mg total) by mouth 3 (three) times daily for2 days. 09/19/21 09/21/21 Yes Reynaldo Chaudhary MD PAST MEDICAL HISTORY: No past medical history on file. PAST SURGICAL HISTORY: No past surgical history on file. FAMILY HISTORY: No family history on file. SOCIAL HISTORY: Review of Systems Review of Systems Constitutional: Negative. HENT: Positive for nosebleeds. Respiratory: Negative. Cardiovascular: Negative. Gastrointestinal: Negative. Musculoskeletal: Negative. Skin: Negative. Neurological: Negative. All other systems reviewed and are negative. Physical Exam Filed Vitals: 09/19/21 1555 09/19/21 1600 09/19/21 1630 BP: (!) 173/101 (!) 163/100 SpO2: 98% 97% Weight: 52.2 kg (115 lb) Height: 5' 3 (1.6 m) Physical Exam Vitals and nursing note reviewed. Constitutional: Appearance: Normal appearance. She is well-developed. HENT: Head: Normocephalic and atraumatic. Nose: Nose normal. Comments: Vigorous right side epistaxis from a site on the anterior aspect of the septum. Mouth/Throat: Mouth: Mucous membranes are moist. Eyes: Conjunctiva/sclera: Conjunctivae normal. Pupils: Pupils are equal, round, and reactive to light. Neck: Vascular: No JVD. Trachea: No tracheal deviation. Cardiovascular: Rate and Rhythm: Normal rate and regular rhythm. Pulmonary: Effort: Pulmonary effort is normal. Abdominal: General: There is no distension. Palpations: Abdomen is soft. There is no mass. Tenderness: There is no abdominal tenderness. There is no guarding or rebound. Musculoskeletal: General: Normal range of motion. Cervical back: Normal range of motion and neck supple. Skin: General: Skin is warm and dry. Capillary Refill: Capillary refill takes less than 2 seconds. Neurological: General: No focal deficit present. Mental Status: She is alert and oriented to person, place, and time. Sensory: No sensory deficit. Motor: No weakness. Diagnostic Studies / Procedures ELECTROCARDIOGRAMS: No results found for this visit on 09/19/21. LABORATORY STUDIES: No results found for this visit on 09/19/21. IMAGING STUDIES No orders to display Epistaxis Management Date/Time: 09/19/2021 4:07 PM Performed by: Reynaldo Chaudhary MD Authorized by: Reynaldo Chaudhary MD Consent: Consent obtained: Verbal Consent given by: Patient Risks discussed: Pain Alternatives discussed: Alternative treatment Secor protocol: Procedure explained and questions answered to patient or proxy's satisfaction: yes Immediately prior to procedure, a time out was called: yes Patient identity confirmed: Verbally with patient Anesthesia: Anesthesia method: None Procedure details: Treatment site: R septum Treatment method: Silver nitrate and nasal balloon Treatment complexity: Limited Treatment episode: initial Post-procedure details: Assessment: Bleeding stopped Procedure completion: Tolerated well, no immediate complications ED Course / Medical Decision Making The patient's bleeding was Too vigorous to allow successful cauterization. So, a rapid rhino was placed. She was then observed to ensure hemostasis. Plan for prophylactic keflex and followup with herPCP in two days for repeat evaluation including BP check. Clinical Impression Epistaxis (Primary) Disposition: Discharge Reynaldo Chaudhary MD 09/19/21 1703 * Maggie Roca RN - 09/19/2021 3:57 PM CDT Silver nitrate and rhino rocket applied via MD. Rhino rocket applied with air. * Maggie Roca RN - 09/19/2021 3:51 PM CDT Pt here with nose bleed that started just prior to arrival, only take aspirin in the morning. documented in this encounter Plan of Treatment Not on file documented as of this encounter Procedures Procedure Name Priority Date/Time Associated Diagnosis Comments EPISTAXIS MANAGEMENT Routine 09/19/2021 4:07 PM CDT documented in this encounter Results * Epistaxis Management (09/19/2021 4:07 PM CDT) Reynaldo Baldwin MD - 09/19/2021 4:07 PM CDT Reynaldo Chaudhary MD ? 09/19/2021 ??5:03 PM Epistaxis Management Date/Time: 09/19/2021 4:07 PM Performed by: Reynaldo Chaudhary MD Authorized by: Reynaldo Chaudhary MD Consent: ??Consent obtained: ??Verbal ??Consent given by: ??Patient ??Risks discussed: ??Pain ??Alternatives discussed: ??Alternative treatment Secor protocol: ??Procedure explained and questions answered to patient or proxy's satisfaction: yes ?Immediately prior to procedure, a time out was called: yes ?Patient identity confirmed: ??Verbally with patient Anesthesia: ??Anesthesia method: ??None Procedure details: ??Treatment site: ??R septum ??Treatment method: ??Silver nitrate and nasal balloon ??Treatment complexity: ??Limited ??Treatment episode: initial ?? Post-procedure details: ??Assessment: ??Bleeding stopped ??Procedure completion: ??Tolerated well, no immediate complications us Reynaldo Chaudhary MD PROCEDURE/MINOR SURGICAL ORDERABLES Final Result documented in this encounter Visit Diagnoses Diagnosis Epistaxis- Primary documented in this encounter Administered Medications Inactive Administered Medications - up to 3 most recent administrations Medication Order MAR Action Action Date Dose Rate Site cephALEXin (KEFLEX) capsule 500 mg 500 mg, Oral, Once, 1 dose, On Carleen 09/19/21 at 1700 Given 09/19/2021 4:58 PM CDT 500 mg silver-potassium nitrate 75-25 % applicator 1 dose, Starting on Carleen 09/19/21 at 1552, Until Carleen 09/19/21 at 1653, Created by cabinet override Given by Other 09/19/2021 4:53 PM CDT 3 applicators documented in this encounter Active and Recently Administered Medications Times are shown in CDT. Scheduled Medication Order 09/17/2021 09/18/2021 09/19/2021 cephALEXin (KEFLEX) capsule 500 mg (COMPLETED) 500 mg, Oral, Once, 1 dose, On Carleen 09/19/21 at 1700 1658 (Given - Provid er: Maggie Roca RN) No Frequency Medication Order 09/17/2021 09/18/2021 09/19/2021 silver-potassium nitrate 75-25 % applicator (COMPLETED) 1 dose, Starting on Carleen 09/19/21 at 1552, Until Carleen 09/19/21 at 1653, Created by cabinet override 1653 (Given by Other - Provider: Maggie Roca RN) documented in this encounter Care Teams Grain Shoveler Relationship Specialty Start Date End Date Alfa Cornejo MD [address] [address] PCP - General INTERNAL MEDICINE 09/19/21 documented as of this encounter
--- OUTSIDE RECORDS SUMMARY | 2024-04-06 23:30 | XMS_ITS | Clinical Summary ---
Author Organization [facility] Address [address] [place] [address]. [place], [place] [address] [place] [address] Care Team Providers Care Casting Supervisor Name Role Phone Alfa Cornejo MD Primary Care Provider [phone] Allergies No known active allergies Social History [...] age to complete this topic Insurance MEDICARE [facility] Care Teams Casting Supervisor Relationship Specialty Start Date End Date Alfa Cornejo MD [address] [place] [phone] PCP - General INTERNAL MEDICINE 09/19/21
--- OUTSIDE RECORDS SUMMARY | 2024-04-06 23:30 | XMS_ITS | CONTINUITY OF CARE DOCUMENT ---
Author Name sotero bey Address Unknown Organization [facility] Address [address] [facility] [address] [place] [address] Phone [phone] Care Team Providers Care Vp Business Development Name Role Phone Sreekanth FRASER, Lyudmila Unavailable PAWAN FORMAN MD Unavailable [phone] PAWAN FORMAN MD Unavailable PROBLEMS Condition Status [...] In-person encounter Office Visit Lyudmila Stack MD [facility] - In-person encounter Office Visit Lyudmila Stack MD [facility] - In-person encounter Office Visit Lyudmila Stack MD [facility] Dizziness- sinus carrie on holter , nl carotids 04/27Chest discomfort nl echo , stress nuclear 04/2021 - In-person encounter Office Visit Lyudmila Stack MD [facility] Essential hypertensionDiabetes mellitus, type 2Dizziness- sinus carrie on holter , nl carotids 04/27Chest discomfort nl echo , stress nuclear 04/2021Near syncope and fall VITAL SIGNS Date Observation Value Provider Body Mass Index (Ratio) 21.08 kg/m2 Ricky Sarmeintoi blood pressure, cuff size large Al denton [place] blood pressure, diastolic 84 mm[Hg] Al denton [place] blood pressure, systolic 148 mm[Hg] [facility] helle [place] oxygen saturation, oximetry 99 % Riddhi [place] pulse rate 89 /min Riddhi Gonzáles angel respiratory rate E&M 16 /min Racheal blackwell [place] weight E&M 119 [lb_av] Riddhi Gonzáles angel height E&M 63 [in_i] Riddhi Eliecer ortiz Body Mass Index (Ratio) 21.25 kg/m2 Deshaun Flores blood pressure, cuff size small Al denton [place] blood pressure, diastolic 90 mm[Hg] Al denton [place] blood pressure, systolic 170 mm[Hg] [facility] [place] oxygen saturation, oximetry 98 % Riddhi [place] respiratory rate E&M 51 /min Racheal blackwell [place] pulse rate 16 /min Riddhi Eliecer ortiz [...] nd smoking status Former smoker Riddhi Bingham [facility] social history reviewed E&M revi ewed - no changes required Ricky Negrete social history reviewed E&M revi ewed - no changes required Esther Flores social history E&M S moking History: Narinder bolton is a former smoker. Esther Flores cigarette use yes Riddhi Maldonado nd smoking status Former smoker Riddhi Bingham [facility] social history E&M S moking History: Narinder bolton is a former smoker. Ricky Negrete social history reviewed E&M revi ewed - no changes required Ricky Negrete cigarette use yes Tonja Coats smoking status Former smoker Tonja Coats INSURANCE PROVIDERS Payer name Policy type / Coverage type [place] red green party ID HUMA[employer] PPO O [id number] [facility] [employer] 333 [id number] ADVANCE DIRECTIVES Name Date DISCUSSED - NO DECISION MADE TREATMENT PLAN Date Name Performer [id number],S, Ricky Ahmedza i [id number],B, Ricky Ahmedza i [id number],S, Ricky Ahmedza i [id number],S, Ricky Ahmedza i [id number],B, Ricky Ahmedza i [id number],B, Lyudmila [place] MD [id number],S, Esther Flores [id number],W, Esther Flores [id number],S, Esther Flores [id number],S, Esther Flores [id number],S, Ricky Ahmedza i [id number],S, Ricky Ahmedza i [id number],S, Ricky Ahmedza i [id number],S, Ricky Ahmedza i [id number],S, Ricky Ahmedza i Cardiology Ricky Ahmedzai Cardiology [...]
--- OUTSIDE RECORDS SUMMARY | 2024-04-06 23:30 | XMS_ITS | Encounter Summary ---
Author Organization [facility] Address [address] [place] [address]. [place] [address] [place] [address] Care Team Providers Care Revolving Inventory Clerk Name Role Phone Alfa Cornejo MD Primary Care Provider [phone] Reason for Referral * (Routine) - Closed Specialty Diagnoses / Procedures Referred By Contac t Referred To Contact Procedures EPISTAXIS MANAGEMENT Reynaldo Chaudhary MD [address] [facility] [address] [place] [address] Phone: tel: fax: Referral ID Status Reason Start Date Expiration Date Visits Re quested Visits Authorized [id number] Closed 09/19/2021 10/19/2022 1 1 Reason for Visit * Reason Comments Nosebleeds Encounter Details Date Type Department Care Team (Late st Contact Info) Description 09/19/2021 3:48 PM CDT - 09/19/2021 5:04 PM CDT Emergency [facility] Emergency Room [address] [place] [address] Reynaldo Chaudhary MD [address] [phone] Nosebleeds Discharge Disposition: Home or Self Care [...] through Care Everywhere. * Nosebleeds Discharge Instructions (Swiss) documented in this encounter Medications at Time [...] Risks discussed: Pain Alternatives discussed: Alternative treatment [place] protocol: Procedure explained and questions answered to [...] ??Risks discussed: ??Pain ??Alternatives discussed: ??Alternative treatment [place] protocol: ??Procedure explained and questions answered to [...] RN) documented in this encounter Care Teams Revolving Inventory Clerk Relationship Specialty Start Date End Date Alfa Cornejo MD [address] [address] PCP - General INTERNAL MEDICINE 09/19/21 documented as of this encounter
--- OUTSIDE RECORDS SUMMARY | 2024-04-06 23:30 | XMS_ITS | Encounter Summary ---
Author Organization [facility] Address [address] [place] [address]. [place], [place] [address] [place] [address] Care Team Providers Care Greenstone Polisher Operator Name Role Phone Alfa Cornejo MD Primary Care Provider Encounter Details Date Type Department Care Team [...] on filedocumented in this encounter Care Teams Greenstone Polisher Operator Relationship Specialty Start Date End Date Alfa Cornejo MD 4 [facility] 23 [place] [address] PCP - General INTERNAL MEDICINE 09/19/21 documented as of this encounter
== END 2024-03-30 19:14 | disposition home or self-care (01) ==
LOC: ANHED 18:54
PROVIDERS: Emergency Provider Emergency Medicine; PCP Internal Medicine
DX: S60.222A Contusion of left hand, initial encounter (principal); E11.9 Type 2 diabetes mellitus without complications; E78.5 Hyperlipidemia, unspecified; I10 Essential (primary) hypertension; Z87.891 Personal history of nicotine dependence; Z79.84 Long term (current) use of oral hypoglycemic drugs; Z79.899 Other long term (current) drug therapy; M17.0 Bilateral primary osteoarthritis of knee; M18.9 Osteoarthritis of first carpometacarpal joint, unspecified; M19.042 Primary osteoarthritis, left hand; W01.0XXA Fall on same level from slipping, tripping and stumbling without subsequent striking against object, initial encounter
CPT/HCPCS: 73070; 73110; 73130; 73562; 99284

== ENCOUNTER 2024-09-11 17:41 | Emergency (ER) | payer MEDICARE, SELFPAY ==
--- OUTSIDE RECORDS SUMMARY | 2024-09-11 17:43 | XMS_ITS | Data Portability ---
Author Organization [place] - [facility] [employer], Main Office Address [address] [place] [address] Assessment No assessment recorded. Plan of Treatment Reminders Order Date Submit Date Provider Last Modified By Organization Details Last Modified Time Details Appointments None recorded. Lab HbA1c (hemoglob in A1c), blood [id number] [place] [address] Outpatient Lab, [address] [place], [address], 5 14:19:31 lipid panel, serum [id number] [place] [address] Outpatient Lab, [address] [place], [address], 5 14:19:30 CMP, serum or plasma [id number] [place] [address] Outpatient Lab, [address] [place], [address], 5 14:19:30 CBC w/ auto diff [id number] [place] [address] Outpatient Lab, [address] [place], [address], 5 14:19:30 TSH, serum or plasma [id number] Outpatient Lab, [address] [place], [address], 5 14:19:31 T4, free, serum [id number] [place] [address] Outpatient Lab, [address] [place], [address], 5 14:19:31 HbA1c (hemoglob in A1c), blood [id number] - Outpatient Lab, [address] [place], [address], 5 16:38:23 lipid panel, serum [id number] - Outpatient Lab, [address] [place], [address], 5 16:38:22 CMP, serum or plasma [id number] Outpatient Lab, [address] [place], [address], 5 16:38:22 CBC w/ auto diff [id number] [place] [address] - Outpatient Lab, [address] [place], [address], 5 16:38:22 HbA1c (hemoglob in A1c), blood [id number] Outpatient Lab, [address] [place], [address], 4 16:32:36 lipid panel, serum 024 [facility] Outpatient Lab, [address] [place], [address], 4 18:15:24 CMP, serum or plasma 024 [facility] Outpatient Lab, [address] [place], [address], 4 18:15:31 vitamin B12, serum [id number] - Outpatient Lab, [address] [place], [address], 4 16:34:30 HbA1c (hemoglob in A1c), blood 024 024 [id number] [facility] Outpatient Lab, [address] [place], [address], 4 16:34:30 CBC w/ auto diff 024 024 [id number] [facility] - Outpatient Lab, [address] [place], [address], 4 16:34:29 lipid panel, serum [id number] [place] [address] Outpatient Lab, [address] [place], [address], 4 16:34:29 CMP, serum or plasma 024 024 [id number] [facility] Outpatient Lab, [address] [place], [address], 4 16:34:29 TSH, serum or plasma 024 [email or web address] [facility] Outpatient Lab, [address] [place], [address], 4 16:34:30 T4, free, serum [id number] [place] [address] Outpatient Lab, [address] [place], [address], 4 16:34:30 vitamin D, 25-hydrox y, total, serum [id number] [place] [address] Outpatient Lab, [address] [place], [address], 4 09:41:13 HbA1c (hemoglob in A1c), blood [id number] [place] [address] Outpatient Lab, [address] [place], [address], 4 09:41:13 CBC w/ auto diff 023 023 [facility] Lab, [address] [place], [address], 3 15:38:53 lipid panel, serum 023 023 [facility] Lab, [address] [place], [address], 3 18:45:07 CMP, serum or plasma 023 023 [facility] Lab, [address] [place], [address], 3 18:45:13 TSH, serum or plasma 023 023 [facility] Lab, [address] [place], [address], 3 18:47:45 T4, free, serum 023 023 [facility] Lab, [address] [place], [address], 3 18:45:33 Referral None recorded. Procedures None recorded. Surgeries None recorded. Imaging None recorded. Medication Orders None recorded. Patient TargetsNo targets recorded. Patient Instructions Encounter Date Encounter Id Patient Instructions Last Modified By Organization Details Last Modified Time 03/12/2023 [id number] Follow-up hypertension, hyperlipidemia, type 2 diabetes and [...] with voice recognition software. Occasional wrong-word or s ound-a-like substitutions may have occurred due to the inherent limitations of voice recognition software. Read the chart carefully and recognize, using context, where substitutions have occurred. Not available 03/12/2023 11:55:50 07/20/2023 [id number] Essential hypertension, hyperlipidemia type 2 diabetes and [...] with voice recognition software. Occasional wrong-word or s ound-a-like substitutions may have occurred due to the inherent limitations of voice recognition software. Read the chart carefully and recognize, using context, where substitutions have occurred. [email or web address] Not available 07/20/2023 15:11:24 11/23/2023 [id number] dementia rating scale-2* [email or web address] Not available 11/23/2023 15:08:29 alcohol misuse* [email or web address] Not available 11/23/2023 15:08:29 depression screening* [email or web address] Not available 11/23/2023 15:08:29 Timed Up and Go test (TUG)* [email or web address] Not available 11/23/2023 15:08:29 multi-dimensiona l health assessment questionnaire* [email or web address] Not available 11/23/2023 15:08:29 Personalized Hea lth Plan and Screening Recommendations Advance Directives - Do you have one? Yes Advance Directives - Do we have your advance directive on file in your health record? No, please bring in a copy at your earliest convenience Primary Prevention/Interven tion (prevents or decreases the chance of common diseases from occurring) Smoking Risk: Non Smoker Alcohol Misuse Screening: Negative Weight: Appropriate Physical activity: Need more exercise/physical activity Nutrition: Average Refer to attached handout Heart-Healthy Diet: After Your Visit Refer to attached handout DASH Diet: After Your Visit Recommend consultation with a applied psychology teacher Eat heart healthy diet Fall Risk (screened today): Intermediate Vaccines Pneumococcal: No further needed Influenza: Your next one in the fall of this year Chronic Disease Risks Stroke: Intermediate Risk Active diagnosis, Continue current treatment plan Heart Attack: Intermediate Risk Active diagnosis, Continue current treatment plan Clogging of the Arteries: Intermediate Risk Active diagnosis, Continue current treatment plan Diabetes: Intermediate Risk Active diagnosis, Continue current treatment plan Secondary Prevention/Interven tion (detects treatable diseases before they may cause symptoms, disability, or ) Breast Cancer Screening with mammogram: No screening necessary Cervical/Uterine/Ov ivelisse Cancer Screening: No screening necessary Osteoporosis Screening: No screening necessary Date Screening Last Performed: Colon Cancer Screening: No screening necessary Date Screening Last Performed: Eye Disease Screening: Ordered Recommended today Recommended today, but you have declined No Eye exam necessary Your next exam in: goes every 2-3 yrs Dementia Risk: Low I have no recommendations Depression Screening: Negative Recommend additional evaluation and/or treatment as noted above Recommend follow appointment to further evaluate Recommend Behavioral Health referral Active diagnosis, Continue current treatment plan I have no recommendations [email or web address] Not available 11/23/2023 14:56:48 Medicare [facility] s evaluation risk assessment stable. Follow-up essential [...] with voice recognition software. Occasional wrong-word or s ound-a-like substitutions may have occurred due to the inherent limitations of voice recognition software. Read the chart carefully and recognize, using context, where substitutions have occurred. [email or web address] Not available 11/23/2023 15:08:10 03/21/2024 [id number] Follow-up for hypertension, hyperlipidemia, type 2 diabetes [...] with voice recognition software. Occasional wrong-word or s ound-a-like substitutions may have occurred due to the inherent limitations of voice recognition software. Read the chart carefully and recognize, using context, where substitutions have occurred. Created: Alfa Cornejo M.D. 03.21.2024 02:08 PM [email or web address] Not available 03/21/2024 15:08:20 07/26/2024 [id number] Follow-up essent ial hypertension, hyperlipidemia, type 2 diabetes, trigger finger right hand and mild dementia. Plan is to continue on current Rx. Will set up with plastics or orthopedics for further evaluation of the trigger finger. Check a CBC, CMP, lipid, thyroid and hemoglobin A1c. Follow-up in four months Additional Orders - Directives - Recommendations 1. set up with ortho or plastics for right ring finger trigger finger. Follow Up: 4 Months Approximate Date: 11/23/2024 Portions of record are template driven. When necessary additional context will be provided. Additionally some portions have been created with voice recognition software. Occasional wrong-word or s ound-a-like substitutions may have occurred due to the inherent limitations of voice recognition software. Read the chart carefully and recognize, using context, where substitutions may have occurred. Created: Alfa Cornejo M.D. 07.26.2024 02:27 PM [email or web address] Not available 07/26/2024 15:27:49 Reason for Referral None Reported. Results Created Date Observation Date Name Description Value Unit Range Abnormal Flag Note LastModifiedBy Organization Detail LastModifiedTime 03/12/20 23 03/12/2023 CBC/C OMPLE TE BLD COUNT W/DIF F white blood cells 4.6 x10'3 /uL 4.2-10 .8 Not Available [facility] (Lab) [address] [place], [address], 03/12/2023 15:38:53 03/12/20 23 03/12/2023 CBC/C OMPLE TE BLD COUNT W/DIF F red blood cells 4.58 x10'6 /uL 3.80-5 .20 Not Available [facility] (Lab) [address] [place], [address], 03/12/2023 15:38:53 03/12/20 23 03/12/2023 CBC/C OMPLE TE BLD COUNT W/DIF F hemoglobin 15.0 g/dL 12.0-1 5.6 Not Available [facility] (Lab) [address] [place], [address], 03/12/2023 15:38:53 03/12/20 23 03/12/2023 CBC/C OMPLE TE BLD COUNT W/DIF F hematocrit 45.8 % 35.7-4 5.7 high Not Available [facility] (Lab) [address] [place], [address], 03/12/2023 15:38:53 03/12/20 23 03/12/2023 CBC/C OMPLE TE BLD COUNT W/DIF F mean red cell volume 100.0 fL 82.0-9 9.0 high Not Available [facility] (Lab) [address] [place], [address], 03/12/2023 15:38:53 03/12/20 23 03/12/2023 CBC/C OMPLE TE BLD COUNT W/DIF F mean red cell hemoglobin 32.8 pg 27.0-3 3.0 Not Available [facility] (Lab) [address] [place], [address], 03/12/2023 15:38:53 03/12/20 23 03/12/2023 CBC/C OMPLE TE BLD COUNT W/DIF F mean RBC HGB concentratio n 32.8 g/dL 31.0-3 6.0 Not Available [facility] (Lab) [address] [place], [address], 03/12/2023 15:38:53 03/12/20 23 03/12/2023 CBC/C OMPLE TE BLD COUNT W/DIF F red cell distribution width 11.4 % 11.8-1 5.5 low Not Available [facility] (Lab) [address] [place], [address], 03/12/2023 15:38:53 03/12/20 23 03/12/2023 CBC/C OMPLE TE BLD COUNT W/DIF F platelets 225 x10'3 /uL 150-40 0 Not Available [facility] (Lab) [address] [place], [address], 03/12/2023 15:38:53 03/12/20 23 03/12/2023 CBC/C OMPLE TE BLD COUNT W/DIF F mean platelet volume 11.7 fL 9.0-12 .4 Not Available [facility] (Lab) [address] [place], [address], 03/12/2023 15:38:53 03/12/20 23 03/12/2023 CBC/C OMPLE TE BLD COUNT W/DIF F neutrophils 71.3 % 39.0-7 2.0 Not Available [facility] (Lab) [address] [place], [address], 03/12/2023 15:38:53 03/12/20 23 03/12/2023 CBC/C OMPLE TE BLD COUNT W/DIF F lymphocytes 20.0 % 16.0-4 7.0 Not Available [facility] (Lab) [address] [place], [address], 03/12/2023 15:38:53 03/12/20 23 03/12/2023 CBC/C OMPLE TE BLD COUNT W/DIF F monocytes 6.3 % 5.0-12 .0 Not Available [facility] (Lab) [address] [place], [address], 03/12/2023 15:38:53 03/12/20 23 03/12/2023 CBC/C OMPLE TE BLD COUNT W/DIF F eosinophils 1.1 % 1.0-7. 0 Not Available [facility] (Lab) [address] [place], [address], 03/12/2023 15:38:53 03/12/20 23 03/12/2023 CBC/C OMPLE TE BLD COUNT W/DIF F basophils 1.1 % 0.0-2. 0 Not Available [facility] (Lab) [address] [place], [address], 03/12/2023 15:38:53 03/12/20 23 03/12/2023 CBC/C OMPLE TE BLD COUNT W/DIF F immature granulocytes 0.2 % 0.00-0 .50 Not Available [facility] (Lab) [address] [place], [address], 03/12/2023 15:38:53 03/12/20 23 03/12/2023 CBC/C OMPLE TE BLD COUNT W/DIF F neutrophils, absolute count 3.29 x10'3 /uL 1.5-8. 0 Not Available [facility] (Lab) [address] [place], [address], 03/12/2023 15:38:53 03/12/20 23 03/12/2023 CBC/C OMPLE TE BLD COUNT W/DIF F lymphocytes, absolute count 0.92 x10'3 /uL 1.07-3 .43 low Not Available [facility] (Lab) [address] [place], [address], 03/12/2023 15:38:53 03/12/20 23 03/12/2023 CBC/C OMPLE TE BLD COUNT W/DIF F monocytes, absolute count 0.29 x10'3 /uL 0.29-0 .99 Not Available [facility] (Lab) [address] [place], [address], 03/12/2023 15:38:53 03/12/20 23 03/12/2023 CBC/C OMPLE TE BLD COUNT W/DIF F eosinophils, absolute count 0.05 x10'3 /uL 0.02-0 .53 Not Available [facility] (Lab) [address] [place], [address], 03/12/2023 15:38:53 03/12/20 23 03/12/2023 CBC/C OMPLE TE BLD COUNT W/DIF F basophils, absolute count 0.05 x10'3 /uL 0.01-0 .08 Not Available [facility] (Lab) [address] [place], [address], 03/12/2023 15:38:53 03/12/20 23 03/12/2023 CBC/C OMPLE TE BLD COUNT W/DIF F immature granulocytes ,absolute 0.01 x10'3 /uL 0.00-0 .05 Not Available [facility] (Lab) [address] [place], [address], 03/12/2023 15:38:53 03/12/20 23 03/12/2023 CBC/C OMPLE TE BLD COUNT W/DIF F nucleated red blood cells 0.0 % -0 Not Available [facility] (Lab) [address] [place], [address], 03/12/2023 15:38:53 03/12/20 23 03/12/2023 CBC/C OMPLE TE BLD COUNT W/DIF F NRBC# 0.00 x10'3 /uL Not Available [facility] (Lab) [address] [place], [address], 03/12/2023 15:38:53 03/12/20 23 03/12/2023 VITAM IN D 25-HY DROXY [id number] 49.7 NG/mL 30-100 Vitam in D Statu s: Defic ient: <20 ng/mL Insuf ficie nt: 20-29 ng/mL Suffi cient : 30-10 0 ng/mL Not Available [facility] (Lab) [address] [place], [address], 03/12/2023 17:54:12 03/12/20 23 03/12/2023 LIPID PANEL cholesterol 150 mg/dL 140-19 9 NIH VALERIA NSUS RECOM MENDA TION FOR ZACKERY STERO L: ADULT CHILD LOW RISK: <200 <170 BORDE RLINE : <200- 239 ----- HIGH RISK: >240 >200 Not Available [facility] (Lab) [address] [place], [address], 03/12/2023 18:45:07 03/12/20 23 03/12/2023 LIPID PANEL triglyceride s 188 mg/dL 0-150 high NIH VALERIA NSUS REPOR T RECOM MENDA TION FOR TRIGL YCERI RAMAKRISHNA: ADULT CHILD LOW RISK: <150 ----- BODER LINE: 150-1 99 ----- HIGH RISK: >200 ----- Not Available [facility] (Lab) [address] [place], [address], 03/12/2023 18:45:07 03/12/20 23 03/12/2023 LIPID PANEL HDL cholesterol 44 mg/dL 40- Not Available [facility] (Lab) [address] [place], [address], 03/12/2023 18:45:07 03/12/20 23 03/12/2023 LIPID PANEL LDL cholesterol, calculated 68 mg/dL [...] WILL NOT BE REPOR TRISTEN. Not Available [facility] (Lab) [address] [place], [address], 03/12/2023 18:45:07 03/12/20 23 03/12/2023 COMPR EHENS DAX METAB OLIC PANEL sodium 139 mmol/ L 137-14 5 Not Available [facility] (Lab) [address] [place], [address], 03/12/2023 18:45:13 03/12/20 23 03/12/2023 COMPR EHENS DAX METAB OLIC PANEL potassium 4.2 mmol/ L 3.5-5. 1 Not Available [facility] (Lab) [address] [place], [address], 03/12/2023 18:45:13 03/12/20 23 03/12/2023 COMPR EHENS DAX METAB OLIC PANEL chloride 101 mmol/ L 98-107 Not Available [facility] (Lab) [address] [place], [address], 03/12/2023 18:45:13 03/12/20 23 03/12/2023 COMPR EHENS DAX METAB OLIC PANEL carbon dioxide 32 mmol/ L 22-30 high Not Available [facility] (Lab) [address] [place], [address], 03/12/2023 18:45:13 03/12/20 23 03/12/2023 COMPR EHENS DAX METAB OLIC PANEL anion gap 10.2 mmol/ L 14-22 low Not Available [facility] (Lab) [address] [place], [address], 03/12/2023 18:45:13 03/12/20 23 03/12/2023 COMPR EHENS DAX METAB OLIC PANEL glucose 287 mg/dL 70-99 high Not Available [facility] (Lab) [address] [place], [address], 03/12/2023 18:45:13 03/12/20 23 03/12/2023 COMPR EHENS DAX METAB OLIC PANEL BUN 30 mg/dL 8-19 high Not Available [facility] (Lab) [address] [place], [address], 03/12/2023 18:45:13 03/12/20 23 03/12/2023 COMPR EHENS DAX METAB OLIC PANEL creatinine 0.93 mg/dL 0.66-1 .25 Not Available [facility] (Lab) [address] [place], [address], 03/12/2023 18:45:13 03/12/20 23 03/12/2023 COMPR EHENS DAX METAB OLIC PANEL GFR 57 Refer ence Range : Letha ge GFR Healt hy Adult : >60 [...] calcu lator is avail able on the [facility] websi te: https :[email or web address] [email or web address] [email or web address].o rg/pr ofess ional s/kdo qi/gf r_cal culat or Not Available [facility] (Lab) [address] [place], [address], 03/12/2023 18:45:13 03/12/20 23 03/12/2023 COMPR EHENS DAX METAB OLIC PANEL alkaline phosphatase 49 U/L 38-126 Not Available [facility] (Lab) [address] [place], [address], 03/12/2023 18:45:13 03/12/20 23 03/12/2023 COMPR EHENS DAX METAB OLIC PANEL alanine aminotransfe rase 19 U/L 0-35 Not Available [facility] (Lab) [address] [place], [address], 03/12/2023 18:45:13 03/12/20 23 03/12/2023 COMPR EHENS DAX METAB OLIC PANEL aspartate aminotransfe rase 64 U/L 15-37 high Not Available [facility] (Lab) [address] [place], [address], 03/12/2023 18:45:13 03/12/2003/12/2023 COMPR EHENS DAX METAB OLIC PANEL bilirubin, total 0.60 mg/dL 0.20-1 .30 Not Available [facility] (Lab) [address] [place], [address], 03/12/2023 18:45:13 03/12/20 23 03/12/2023 COMPR EHENS DAX METAB OLIC PANEL calcium 9.8 mg/dL 8.4-10 .2 Not Available [facility] (Lab) [address] [place], [address], 03/12/2023 18:45:13 03/12/20 23 03/12/2023 COMPR EHENS DAX METAB OLIC PANEL total protein 8.1 g/dL 6.3-8. 2 Not Available [facility] (Lab) [address] [place], [address], 03/12/2023 18:45:13 03/12/20 23 03/12/2023 COMPR EHENS DAX METAB OLIC PANEL albumin 4.3 g/dL 3.0-4. 4 Not Available [facility] (Lab) [address] [place], [address], 03/12/2023 18:45:13 12/07/03/12/2023 COMPR EHENS DAX METAB OLIC PANEL globulin 3.8 g/dL 2.6-4. 2 Not Available [facility] (Lab) [address] [place], [address], 03/12/2023 18:45:13 03/12/20 23 03/12/2023 COMPR EHENS DAX METAB OLIC PANEL A/G ratio 1.1 ratio 1.0-2. 0 Not Available [facility] (Lab) [address] [place], [address], 03/12/2023 18:45:13 03/12/20 23 03/12/2023 T4 FREE free T4 1.04 NG/dL 0.78-2 .19 Not Available [facility] (Lab) [address] [place], [address], 03/12/2023 18:45:33 03/12/20 23 03/12/2023 TSH thyroid-stim ulating hormone 2.320 uIU/m L 0.465- 4.680 Not Available [facility] (Lab) [address] [place], [address], 03/12/2023 18:47:45 03/12/20 23 03/12/2023 HEMOG LOBIN A1C HA1C 7.1 % 4.0-6. 0 high Diabe katja Scree carlo Crite phoebe: <5.7% Consi stent with absen ce of diabe katja 5.7-6 .4% Consi stent with incre ased risk for diabe katja (pred iabet es) >OR=6 .5% Consi stent with diabe katja REFER ENCE: Diabe katja Care 2016, 39(Nicole ppl.1 ):s13 -s22 Not Available [facility] (Lab) [address] [place], [address], 03/12/2023 20:07:48 07/29/19 24 07/29/2023 CBC/C OMPLE TE BLD COUNT W/DIF F white blood cells 3.8 x10'3 /uL 4.2-10 .8 low Not Available [facility] (Lab) [address] [place], [address], 07/29/2023 13:22:40 07/29/19 24 07/29/2023 CBC/C OMPLE TE BLD COUNT W/DIF F red blood cells 4.74 x10'6 /uL 3.80-5 .20 Not Available [facility] (Lab) [address] [place], [address], 07/29/2023 13:22:40 07/29/19 24 07/29/2023 CBC/C OMPLE TE BLD COUNT W/DIF F hemoglobin 15.1 g/dL 12.0-1 5.6 Not Available [facility] (Lab) [address] [place], [address], 07/29/2023 13:22:40 07/29/19 24 07/29/2023 CBC/C OMPLE TE BLD COUNT W/DIF F hematocrit 45.2 % 35.7-4 5.7 Not Available [facility] (Lab) [address] [place], [address], 07/29/2023 13:22:40 07/29/19 24 07/29/2023 CBC/C OMPLE TE BLD COUNT W/DIF F mean red cell volume 95.4 fL 82.0-9 9.0 Not Available [facility] (Lab) [address] [place], [address], 07/29/2023 13:22:40 07/29/19 24 07/29/2023 CBC/C OMPLE TE BLD COUNT W/DIF F mean red cell hemoglobin 31.9 pg 27.0-3 3.0 Not Available [facility] (Lab) [address] [place], [address], 07/29/2023 13:22:40 04/24/07/29/2023 CBC/C OMPLE TE BLD COUNT W/DIF F mean RBC HGB concentratio n 33.4 g/dL 31.0-3 6.0 Not Available [facility] (Lab) [address] [place], [address], 07/29/2023 13:22:40 07/29/1907/29/2023 CBC/C OMPLE TE BLD COUNT W/DIF F red cell distribution width 11.6 % 11.8-1 5.5 low Not Available [facility] (Lab) [address] [place], [address], 07/29/2023 13:22:40 07/29/1907/29/2023 CBC/C OMPLE TE BLD COUNT W/DIF F platelets 156 x10'3 /uL 150-40 0 Not Available [facility] (Lab) [address] [place], [address], 07/29/2023 13:22:40 07/29/19 24 07/29/2023 CBC/C OMPLE TE BLD COUNT W/DIF F mean platelet volume 11.5 fL 9.0-12 .4 Not Available [facility] (Lab) [address] [place], [address], 07/29/2023 13:22:40 07/29/1907/29/2023 CBC/C OMPLE TE BLD COUNT W/DIF F neutrophils 53.3 % 39.0-7 2.0 Not Available [facility] (Lab) [address] [place], [address], 07/29/2023 13:22:40 07/29/1907/29/2023 CBC/C OMPLE TE BLD COUNT W/DIF F lymphocytes 33.2 % 16.0-4 7.0 Not Available [facility] (Lab) [address] [place], [address], 07/29/2023 13:22:40 07/29/19 24 07/29/2023 CBC/C OMPLE TE BLD COUNT W/DIF F monocytes 9.1 % 5.0-12 .0 Not Available [facility] (Lab) [address] [place], [address], 07/29/2023 13:22:40 07/29/19 24 07/29/2023 CBC/C OMPLE TE BLD COUNT W/DIF F eosinophils 2.9 % 1.0-7. 0 Not Available [facility] (Lab) [address] [place], [address], 07/29/2023 13:22:40 07/29/19 24 07/29/2023 CBC/C OMPLE TE BLD COUNT W/DIF F basophils 1.0 % 0.0-2. 0 Not Available [facility] (Lab) [address] [place], [address], 07/29/2023 13:22:40 07/29/19 24 07/29/2023 CBC/C OMPLE TE BLD COUNT W/DIF F immature granulocytes 0.5 % 0.00-0 .50 Not Available [facility] (Lab) [address] [place], [address], 07/29/2023 13:22:40 07/29/19 24 07/29/2023 CBC/C OMPLE TE BLD COUNT W/DIF F neutrophils, absolute count 2.04 x10'3 /uL 1.5-8. 0 Not Available [facility] (Lab) [address] [place], [address], 07/29/2023 13:22:40 07/29/19 24 07/29/2023 CBC/C OMPLE TE BLD COUNT W/DIF F lymphocytes, absolute count 1.27 x10'3 /uL 1.07-3 .43 Not Available [facility] (Lab) [address] [place], [address], 07/29/2023 13:22:40 07/29/19 24 07/29/2023 CBC/C OMPLE TE BLD COUNT W/DIF F monocytes, absolute count 0.35 x10'3 /uL 0.29-0 .99 Not Available [facility] (Lab) [address] [place], [address], 07/29/2023 13:22:40 07/29/19 24 07/29/2023 CBC/C OMPLE TE BLD COUNT W/DIF F eosinophils, absolute count 0.11 x10'3 /uL 0.02-0 .53 Not Available [facility] (Lab) [address] [place], [address], 07/29/2023 13:22:40 07/29/19 24 07/29/2023 CBC/C OMPLE TE BLD COUNT W/DIF F basophils, absolute count 0.04 x10'3 /uL 0.01-0 .08 Not Available [facility] (Lab) [address] [place], [address], 07/29/2023 13:22:40 07/29/19 24 07/29/2023 CBC/C OMPLE TE BLD COUNT W/DIF F immature granulocytes ,absolute 0.02 x10'3 /uL 0.00-0 .05 Not Available [facility] (Lab) [address] [place], [address], 07/29/2023 13:22:40 07/29/19 24 07/29/2023 CBC/C OMPLE TE BLD COUNT W/DIF F nucleated red blood cells 0.0 % -0 Not Available [facility] (Lab) [address] [place], [address], 07/29/2023 13:22:40 07/29/19 24 07/29/2023 CBC/C OMPLE TE BLD COUNT W/DIF F NRBC# 0.00 x10'3 /uL Not Available [facility] (Lab) [address] [place], [address], 07/29/2023 13:22:40 07/29/19 24 07/29/2023 LIPID PANEL cholesterol 133 mg/dL 140-19 9 low NIH VALERIA NSUS RECOM MENDA TION FOR ZACKERY STERO L: ADULT CHILD LOW RISK: <200 <170 BORDE RLINE : <200- 239 ----- HIGH RISK: >240 >200 Not Available [facility] (Lab) [address] [place], [address], 07/29/2023 13:48:39 07/29/1907/29/2023 LIPID PANEL triglyceride s 106 mg/dL 0-150 NIH VALERIA NSUS REPOR T RECOM MENDA TION FOR TRIGL YCERI RAMAKRISHNA: ADULT CHILD LOW RISK: <150 ----- BODER LINE: 150-1 99 ----- HIGH RISK: >200 ----- Not Available [facility] (Lab) [address] [place], [address], 07/29/2023 13:48:39 07/29/19 24 07/29/2023 LIPID PANEL HDL cholesterol 59 mg/dL 40- Not Available [facility] (Lab) [address] [place], [address], 07/29/2023 13:48:39 07/29/1907/29/2023 LIPID PANEL LDL cholesterol, calculated 53 mg/dL [...] WILL NOT BE REPOR TRISTEN. Not Available [facility] (Lab) [address] [place], [address], 07/29/2023 13:48:39 07/29/19 24 07/29/2023 COMPR EHENS DAX METAB OLIC PANEL sodium 141 mmol/ L 137-14 5 Not Available [facility] (Lab) [address] [place], [address], 07/29/2023 13:48:46 07/29/19 24 07/29/2023 COMPR EHENS DAX METAB OLIC PANEL potassium 4.6 mmol/ L 3.5-5. 1 Not Available [facility] (Lab) [address] [place], [address], 07/29/2023 13:48:46 07/29/19 24 07/29/2023 COMPR EHENS DAX METAB OLIC PANEL chloride 105 mmol/ L 98-107 Not Available [facility] (Lab) [address] [place], [address], 07/29/2023 13:48:46 07/29/19 24 07/29/2023 COMPR EHENS DAX METAB OLIC PANEL carbon dioxide 32 mmol/ L 22-30 high Not Available [facility] (Lab) [address] [place], [address], 07/29/2023 13:48:46 07/29/19 24 07/29/2023 COMPR EHENS DAX METAB OLIC PANEL anion gap 8.6 mmol/ L 14-22 low Not Available [facility] (Lab) [address] [place], [address], 07/29/2023 13:48:46 07/29/19 24 07/29/2023 COMPR EHENS DAX METAB OLIC PANEL glucose 166 mg/dL 70-99 high Not Available [facility] (Lab) [address] [place], [address], 07/29/2023 13:48:46 07/29/19 24 07/29/2023 COMPR EHENS DAX METAB OLIC PANEL BUN 21 mg/dL 8-19 high Not Available [facility] (Lab) [address] [place], [address], 07/29/2023 13:48:46 07/29/19 24 07/29/2023 COMPR EHENS DAX METAB OLIC PANEL creatinine 0.95 mg/dL 0.66-1 .25 Not Available [facility] (Lab) [address] [place], [address], 07/29/2023 13:48:46 07/29/19 24 07/29/2023 COMPR EHENS DAX METAB OLIC PANEL GFR 56 Refer ence Range : Letha ge GFR Healt hy Adult : >60 [...] or ethni c subgr oups, such as [facility] nics. Outsi de the valid ated yani [...] calcu lator is avail able on the NKF websi te: https ://anoop [email or web address] [email or web address] purnima/pr ofess ional s/kdo qi/gf r_cal culat or Not Available [facility] (Lab) [address] [place], [address], 07/29/2023 13:48:46 07/29/19 24 07/29/2023 COMPR EHENS DAX METAB OLIC PANEL alkaline phosphatase 54 U/L 38-126 Not Available [facility] (Lab) [address] [place], [address], 07/29/2023 13:48:46 07/29/19 24 07/29/2023 COMPR EHENS DAX METAB OLIC PANEL alanine aminotransfe rase 21 U/L 0-35 Not Available [facility] (Lab) [address] [place], [address], 07/29/2023 13:48:46 07/29/19 24 07/29/2023 COMPR EHENS DAX METAB OLIC PANEL aspartate aminotransfe rase 30 U/L 15-37 Not Available [facility] (Lab) [address] [place], [address], 07/29/2023 13:48:46 07/29/19 24 07/29/2023 COMPR EHENS DAX METAB OLIC PANEL bilirubin, total 0.80 mg/dL 0.20-1 .30 Not Available [facility] (Lab) [address] [place], [address], 07/29/2023 13:48:46 07/29/19 24 07/29/2023 COMPR EHENS DAX METAB OLIC PANEL calcium 9.8 mg/dL 8.4-10 .2 Not Available [facility] (Lab) [address] [place], [address], 07/29/2023 13:48:46 07/29/19 24 07/29/2023 COMPR EHENS DAX METAB OLIC PANEL total protein 7.3 g/dL 6.3-8. 2 Not Available [facility] (Lab) [address] [place], [address], 07/29/2023 13:48:46 07/29/19 24 07/29/2023 COMPR EHENS DAX METAB OLIC PANEL albumin 4.4 g/dL 3.0-4. 4 Not Available [facility] (Lab) [address] [place], [address], 07/29/2023 13:48:46 07/29/19 24 07/29/2023 COMPR EHENS DAX METAB OLIC PANEL globulin 2.9 g/dL 2.6-4. 2 Not Available [facility] (Lab) [address] [place], [address], 07/29/2023 13:48:46 07/29/19 24 07/29/2023 COMPR EHENS DAX METAB OLIC PANEL A/G ratio 1.5 ratio 1.0-2. 0 Not Available [facility] (Lab) [address] [place], [address], 07/29/2023 13:48:46 07/29/19 24 07/29/2023 T4 FREE free T4 1.19 NG/dL 0.78-2 .19 Not Available [facility] (Lab) [address] [place], [address], 07/29/2023 14:31:42 07/29/19 24 07/29/2023 TSH thyroid-stim ulating hormone 2.070 uIU/m L 0.465- 4.680 Not Available [facility] (Lab) [address] [place], [address], 07/29/2023 14:43:13 07/29/19 24 07/29/2023 HEMOG LOBIN A1C HA1C 6.7 % 4.0-6. 0 high Diabe katja Scree carlo Crite phoebe: <5.7% Consi stent with absen ce of diabe katja 5.7-6 .4% Consi stent with incre ased risk for diabe katja (pred iabet es) >OR=6 .5% Consi stent with diabe katja REFER ENCE: Diabe katja Care 2016, 39(Nicole ppl.1 ):s13 -s22 Not Available [facility] (Lab) [address] [place], [address], 07/29/2023 14:46:43 07/29/19 24 07/29/2023 VITAM IN B12 (TALIA SY ) vb12 >1000 pg/mL 239-93 1 high Not Available [facility] (Lab) [address] [place], [address], 07/29/2023 15:45:18 11/23/19 24 11/23/2023 LIPID PANEL cholesterol 107 mg/dL 140-19 9 low NIH VALERIA NSUS RECOM MENDA TION FOR ZACKERY STERO L: ADULT CHILD LOW RISK: <200 <170 BORDE RLINE : <200- 239 ----- HIGH RISK: >240 >200 Not Available [facility] (Lab) [address] [place], [address], 11/23/2023 18:15:24 11/23/1911/23/2023 LIPID PANEL triglyceride s 149 mg/dL 0-150 NIH VALERIA NSUS REPOR T RECOM MENDA TION FOR TRIGL YCERI RAMAKRISHNA: ADULT CHILD LOW RISK: <150 ----- BODER LINE: 150-1 99 ----- HIGH RISK: >200 ----- Not Available [facility] (Lab) [address] [place], [address], 11/23/2023 18:15:24 11/23/19 24 11/23/2023 LIPID PANEL HDL cholesterol 49 mg/dL 40- Not Available [facility] (Lab) [address] [place], [address], 11/23/2023 18:15:24 11/23/19 24 11/23/2023 LIPID PANEL [...] WILL NOT BE REPOR TRISTEN. Not Available [facility] (Lab) [address] [place], [address], 11/23/2023 18:15:24 11/23/19 24 11/23/2023 COMPR EHENS DAX METAB OLIC PANEL sodium 140 mmol/ L 137-14 5 Not Available [facility] (Lab) [address] [place], [address], 11/23/2023 18:15:31 11/23/19 24 11/23/2023 COMPR EHENS DAX METAB OLIC PANEL potassium 4.2 mmol/ L 3.5-5. 1 Not Available [facility] (Lab) [address] [place], [address], 11/23/2023 18:15:31 11/23/19 24 11/23/2023 COMPR EHENS DAX METAB OLIC PANEL chloride 106 mmol/ L 98-107 Not Available [facility] (Lab) [address] [place], [address], 11/23/2023 18:15:31 11/23/19 24 11/23/2023 COMPR EHENS DAX METAB OLIC PANEL carbon dioxide 26 mmol/ L 22-30 Not Available [facility] (Lab) [address] [place], [address], 11/23/2023 18:15:31 11/23/19 24 11/23/2023 COMPR EHENS DAX METAB OLIC PANEL anion gap 12.2 mmol/ L 14-22 low Not Available [facility] (Lab) [address] [place], [address], 11/23/2023 18:15:31 11/23/19 24 11/23/2023 COMPR EHENS DAX METAB OLIC PANEL glucose 134 mg/dL 70-99 high Not Available [facility] (Lab) [address] [place], [address], 11/23/2023 18:15:31 11/23/19 24 11/23/2023 COMPR EHENS DAX METAB OLIC PANEL BUN 37 mg/dL 8-19 high Not Available [facility] (Lab) [address] [facility] [place], [address], 11/23/2023 18:15:31 11/23/19 24 11/23/2023 COMPR EHENS DAX METAB OLIC PANEL creatinine 0.97 mg/dL 0.66-1 .25 Not Available [facility] (Lab) [address] [facility] [place], [address], 11/23/2023 18:15:31 11/23/19 24 11/23/2023 COMPR EHENS DAX METAB OLIC PANEL GFR 55 Refer ence Range : Letha ge GFR Healt hy Adult : >60 [...] or ethni c subgr oups, such as [facility] nics. Outsi de the valid ated yani [...] calcu lator is avail able on the F websi te: https ://anoop w.kenyatta [email or web address].o rg/pr ofess ional s/kdo qi/gf r_cal culat or Not Available [facility] (Lab) [address] [place], [address], 11/23/2023 18:15:31 11/23/19 24 11/23/2023 COMPR EHENS DAX METAB OLIC PANEL alkaline phosphatase 55 U/L 38-126 Not Available [facility] (Lab) [address] [place], [address], 11/23/2023 18:15:31 11/23/19 24 11/23/2023 COMPR EHENS DAX METAB OLIC PANEL alanine aminotransfe rase 18 U/L 0-35 Not Available [facility] (Lab) [address] [place], [address], 11/23/2023 18:15:31 11/23/19 24 11/23/2023 COMPR EHENS DAX METAB OLIC PANEL aspartate aminotransfe rase 24 U/L 15-37 Not Available [facility] (Lab) [address] [place], [address], 11/23/2023 18:15:31 11/23/19 24 11/23/2023 COMPR EHENS DAX METAB OLIC PANEL bilirubin, total 0.30 mg/dL 0.20-1 .30 Not Available [facility] (Lab) [address] [place], [address], 11/23/2023 18:15:31 11/23/19 24 11/23/2023 COMPR EHENS DAX METAB OLIC PANEL calcium 9.7 mg/dL 8.4-10 .2 Not Available [facility] (Lab) [address] [place], [address], 11/23/2023 18:15:31 11/23/19 24 11/23/2023 COMPR EHENS DAX METAB OLIC PANEL total protein 6.8 g/dL 6.3-8. 2 Not Available [facility] (Lab) [address] [place], [address], 11/23/2023 18:15:31 11/23/19 24 11/23/2023 COMPR EHENS DAX METAB OLIC PANEL albumin 3.9 g/dL 3.0-4. 4 Not Available [facility] (Lab) [address] [place], [address], 11/23/2023 18:15:31 11/23/19 24 11/23/2023 COMPR EHENS DAX METAB OLIC PANEL globulin 2.9 g/dL 2.6-4. 2 Not Available [facility] (Lab) [address] [place], [address], 11/23/2023 18:15:31 11/23/19 24 11/23/2023 COMPR EHENS DAX METAB OLIC PANEL A/G ratio 1.3 ratio 1.0-2. 0 Not Available [facility] (Lab) [address] [place], [address], 11/23/2023 18:15:31 11/23/19 24 11/23/2023 HEMOG LOBIN A1C HA1C 6.6 % 4.0-6. 0 high Diabe katja Scree carlo Crite phoebe: <5.7% Consi stent with absen ce of diabe katja 5.7-6 .4% Consi stent with incre ased risk for diabe katja (pred iabet es) >OR=6 .5% Consi stent with diabe katja REFER ENCE: Diabe katja Care 2016, 39(Nicole ppl.1 ):s13 -s22 Not Available [facility] (Lab) [address] [place], [address], 11/23/2023 20:13:45 08/10/19 24 08/10/2023 XR, chest , 1 view No observ ation record ed. [place] [address], [place], [address], 08/11/2023 07:52:46 11/12/19 24 11/11/2023 XR, chest , 2 view No observ ation record ed. [address], [place], [address], 11/12/2023 07:39:29 11/12/19 24 11/11/2023 CT, brain , w/o contr ast No observ ation record ed. [address], [place], [address], 11/12/2023 07:40:05 11/13/19 24 11/12/2023 lab* No observ ation record ed. [place] [address] Not Available 2023 17:04:32 03/30/20 24 03/30/2024 XR, knee No observ ation record ed. [address] [facility], [place], [address], 03/31/2024 06:44:29 03/30/20 24 03/30/2024 XR, knee No observ ation record ed. [address] [facility], [place], [address], 03/31/2024 06:45:52 03/30/20 24 03/30/2024 XR, hand No observ ation record ed. [address] [facility], [place], [address], 03/31/2024 06:46:14 03/30/20 24 03/30/2024 XR, wrist No observ ation record ed. [address], [place], [address], 03/31/2024 06:46:32 03/30/20 24 03/30/2024 XR, elbow No observ ation record ed. [address], [place], [address], 03/31/2024 06:46:48 Result Notes None recorded. 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 Not Available [facility] 3 09:16:05 Cystitis 74625492 Active Not Available [facility] 3 09:16:05 Hyperlipid emia 56167037 Active Not Available [facility] 3 09:16:05 Essential hypertensi on 35230822 Active Not Available [facility] 3 09:16:05 Serum vitamin B12 below reference range 282452641 Active 2022 Helena Pittman CMA null, [place] - [facility] 3 16:41:38 Anemia 892232212 Active 2022 Ramona Roche null, [place] [facility] 3 15:41:01 Cobalamin deficiency 680614209 Active 2022 Tonja Brown MA null, [place] [facility] 3 12:29:12 Weight loss 75615741 Active 2022 Alfa Cornejo MD [address], [place], [address] , [facility] 3 17:07:55 Dementia 74614096 Active 2022 Alfa Cornejo MD [address], [place], [address] , [facility] 3 11:51:22 Vitamin D deficiency 73269471 Active 2022 Alfa Cornejo MD [address], [address] , [facility] 3 11:55:38 Bacteremia 7715743 Active 2023 Alfa Cornejo MD [address], [place] [address], [place], [address] , [facility] 4 17:02:57 Headache 87658751 Active 2023 Helena Pittman CMA zully, [facility] 4 12:39:35 Disturbanc e in speech 85559386 Active 2023 Helena Pittman CMA null, [facility] 4 14:39:16 Type 2 diabetes mellitus 21621921 Active 2024 Alfa Cornejo MD [address], [facility] [address], [place], [address] , [facility] 5 15:21:09 Trigger finger of right hand 9230808507737 9101 Active 2024 Alfa Cornejo MD [address] [facility] [place] [address], [place], [address] , [facility] 5 15:21:32 Increased frequency of urination 947334464 Active 2024 Ramona Palaciosxu andrea, [facility] 5 16:58:26 Problem Notes None recorded. Procedures Surgical History Date Name Laterality Status Provider Name and Address Organization Details Recorded Time 11/23/19 Medicare Wellness CPT Code, subsequent completed Parisa Zacarias RN [facility] 11/23/2023 14:49:42 Hysterectomy completed Not Available [facility] 06/04/2022 09:14:24 Imaging Results None recorded. Procedure Notes None recorded. Medical Equipment None Reported. Allergies Allergen ID Allergen Name Allergen Category Reaction Reaction Severity Criticality Documentation Date Start Date Code Code System Note Provider Name and Address Organization Details Recorded Time 17135 shellfish derived food,medi cation rash Not available Not available 06/04/2022 20257 UNK Not Available [facility] 3 09:18:41 Medications Name Sig Start Date [...] Updated DateTime 4 157.48 cm 20 kg/m2 77906.3 6 g 82 /min 97 [degF] 98 % 98 % 138 mm[Hg] 60 mm[Hg] [facility] 4 14:52:20 Date Recorded Body height Body mass index (BMI) Body weight Heart rate Body temperature Oxygen saturation Oxygen saturation in Arterial blood by Pulse oximetry Systolic blood pressure Diastolic blood pressure Provider Name and Address Organization Details Last Updated DateTime 5 157.48 cm 22.3 kg/m2 23610.2 7 g 78 /min 97 [degF] 96 % 96 % 128 mm[Hg] 60 mm[Hg] [facility] 5 14:59:45 Date Recorded Body height Body mass index (BMI) Body weight Heart rate Body temperature Oxygen saturation Oxygen saturation in Arterial blood by Pulse oximetry Systolic blood pressure Diastolic blood pressure Provider Name and Address Organization Details Last Updated DateTime 4 157.48 cm 20.7 kg/m2 18810.9 4 g 71 /min 97.8 [degF] 95 % 95 % 126 mm[Hg] 62 mm[Hg] JOSE CARLOS Hare [place] [employer] [facility] [employer] [facility] 4 14:33:41 Date Recorded Body height Body mass index (BMI) Body weight Heart rate Body temperature Oxygen saturation Oxygen saturation in Arterial blood by Pulse oximetry Systolic blood pressure Diastolic blood pressure Provider Name and Address Organization Details Last Updated DateTime 3 157.48 cm 20.9 kg/m2 67941.5 3 g 82 /min 97 [degF] 96 % 96 % 132 mm[Hg] 68 mm[Hg] Ramona Roche [facility] [employer] [facility] 3 11:42:24 Date Recorded Body height Body weight Heart rate Body temperature Oxygen saturation Oxygen saturation in Arterial blood by Pulse oximetry Systolic blood pressure Diastolic blood pressure Provider Name and Address Organization Details Last Updated DateTime 4 157.48 cm 54745.2 7 g 76 /min 97 [degF] 98 % 98 % 142 mm[Hg] 80 mm[Hg] Ryann MerinoJOSE CARLOS [facility] [employer] [facility] 4 14:48:28 Social History Question Answer Notes LastModified by Organizat ion Details LastModified Time Tobacco Smoking Status Never Smoker Not Available [facility] 06/04/2022 09:14:10 Do You Have An Advance Directive? Yes [email or web address] Information not available 11/23/2023 Are You Blind Or Do You Have Difficulty Seeing? No [id number] Information not available 06/04/2022 In The 14 Days Before Symptom Onset, Have You Had Close Contact With A Laboratory-confir med COVID-19 While That Case Was Ill? No [id number] Information not available 06/04/2022 In The 14 Days Before Symptom Onset, Have You Had Close Contact With A Person Who Is Under Investigation For COVID-19 While That Person Was Ill? No MIGRATION.[id number] Information not available 06/04/2022 Are You Deaf Or Do You Have Serious Difficulty Hearing? No MIGRATION.421912 6011 Information not available 06/04/2022 What Type Of Diet Are You Following? DIABETIC MIGRATION.[id number] 8482 Information not available 06/04/2022 Have There Been Any Changes To Your Family Or Social Situation? No MIGRATION.[id number] 6535 Information not available 06/04/2022 What Is The Fluoride Status Of Your Home? Unknown MIGRATION.[id number] 2719 Information not available 06/04/2022 Are There Any Guns Present In Your Home? No MIGRATION.094443 6215 Information not available 06/04/2022 Do You Use Insect Repellent Routinely? No MIGRATION.447670 2540 Information not available 06/04/2022 Where Do You Live? Other Asst Living [email or web address] Information not available 11/23/2023 Guns Present In The Home? No [email or web address] Information not available 11/23/2023 Are You Able To Care For Yourself? No [email or web address] Information not available 11/23/2023 Are You Blind Or Do Yo Have Difficulty Seeing? No [email or web address] Information not available 11/23/2023 Are You Deaf Or Do You Have Serious Difficulty Hearing? No [email or web address] Information not available 11/23/2023 Live Alone Of With Others? With Others [email or web address] Information not available 11/23/2023 Do You Have A Medical Power Of Granite Countertop Installer? Yes [email or web address] Information not available 11/23/2023 What Was The Date Of Your Most Recent Tobacco Screening? 11/23/2023 [email or web address] Information not available 11/23/2023 Do You Have Any Pets? No MIGRATION.391094 9926 Information not available 06/04/2022 Do You Use Your Seat Belt Or Car Seat Routinely? Yes MIGRATION.813465 0659 Information not available 06/04/2022 Do You Have Smoke And Carbon Monoxide Detectors In Your Home? Yes MIGRATION.889291 7073 Information not available 06/04/2022 Are You Passively Exposed To Smoke? No MIGRATION.163678 0902 Information not available 06/04/2022 Are There Any Smokers In Your House? No MIGRATION.874745 4008 Information not available 06/04/2022 Do You Use Sunscreen Routinely? No MIGRATION.670456 2169 Information not available 06/04/2022 Have You Recently Traveled Abroad? No MIGRATION.377138 1874 Information not available 06/04/2022 Do You Have Difficulty Walking Or Climbing Stairs? No MIGRATION.257911 8130 Information not available 06/04/2022 Sex: Unknown Functional Status Question Answer Note LastModified by Organizat ion Details LastModified Time What is your level of alcohol consumption? None MIGRATION.[id number] 026 Information not available 06/04/2022 Do you have transportation difficulties? No MIGRATION.1984210 026 Information not available 06/04/2022 Are you able to walk? YESWOREST MIGRATION.[id number] 026 Information not available 06/04/2022 Do you have difficulty doing errands alone? Yes [email or web address] Information not available 11/23/2023 Are you able to care for yourself? No [email or web address] Information n ot available 11/23/2023 Do you have difficulty dressing or bathing? No MIGRATION.5924801 026 Information not available 06/04/2022 What is your exercise level? Occasional MIGRATION.[id number] 026 Information not available 06/04/2022 Mental Status Question Answer Note LastModified by Organization D etails LastModified Time Do you have difficulty concentrating, remembering or making decisions? Yes [email or web address] Information no t available 11/23/2023 Family History Relationship Description Onset Age of this Age Resolved Age Notes LastModified by Organization Details LastModified Time Mother Heart disease [id number] Not available 06/04/2022 09:14:24 Mother Hypertensive disorder MIGRATION.952 [id number] Not available 06/04/2022 09:14:24 Unspecified Relation Diabetes mellitus [id number].470 [id number] Not available 06/04/2022 09:14:24 Notes:Mother 89 infirmi [...] HEARING PROBLEMS N MUMPS N SHINGLES N DEPRESSION (INCLUDING POST ) N BOWEL PROBLEMS N STROKE/TIA N ULCERS N BENIGN PROSTATIC HYPERPLASIA N MEASLES N HYPOTENSION N MYOCARDIAL INFARCTION N OBESITY N GERD/NAUSEA N ANEURYSM N URINARY/BLADDER/KIDNEY PROBLEMS N CORONARY ARTERY DISEASE (CAD) N ADDICTION CONCERNS N Impotence N ENDOMETRIOSIS N USE OF BLOOD THINNERS N SKIN [...] HAVE YOU BEEN HOSPITALIZED OR SEEN IN [facility] IN THE PAST YEAR ? N ATHEROSCLEROSIS [...] Brain Problems N HERPES N DEMENTIA N SEIZURES/EPILEPSY N HEADACHES/MIGRAINES N VASCULAR DISEASE N PACEMAKER N Blood Disorder N DIZZINESS N KIDNEY DISEASE N HEART DISEASE/HEART PROBLEMS N MULTIPLE SCLEROSIS N CARDIAC ARRHYTHMIA N CANCER: SPECIFY N Gall Stones N ATRIAL FIBRILLATION N PULMONARY EMBOLISM N AUTOIMMUNE DISEASE N Gynecological HistoryNo gynecological history recorded. Obstetrics History GPAL:G 0 P 0 0 0 0 Immunizations Vaccine Type Date Status Note Provider Nam e and Address Organization Details Recorded Time Influenza, split virus, trivalent, preservative 4 completed Not Available [facility] 06/04/2022 09:18:31 Influenza, split virus, trivalent, preservative 3 completed Not Available [facility] 06/04/2022 09:18:32 COVID-19, mRNA, LNP-S, PF, 30 mcg/0.3 mL dose 1 completed Not Available [facility] 06/04/2022 09:18:32 COVID-19 Non-US Vaccine, Product Unknown 1 completed Not Available [facility] 06/04/2022 09:18:32 COVID-19 Non-US Vaccine, Product Unknown 1 completed Not Available [facility] 06/04/2022 09:18:32 influenza, unspecified formulation 2 completed Not Available [facility] 06/04/2022 09:18:32 zoster live 5 completed Not Available [facility] 06/04/2022 09:18:32 Influenza, high-dose, quadrivalent, PF 2 completed Not Available [facility] 06/04/2022 09:18:32 Influenza, high-dose, quadrivalent, PF 0 completed Not Available [facility] 06/04/2022 09:18:32 Influenza, high-dose, trivalent, PF 9 completed Not Available [facility] 06/04/2022 09:18:33 pneumococcal polysaccharide PPV23 9 completed Not Available [facility] 06/04/2022 09:18:33 Influenza, high-dose, trivalent, PF 8 completed Not Available [facility] 06/04/2022 09:18:33 Influenza, high-dose, trivalent, PF 6 completed Not Available [facility] 06/04/2022 09:18:33 Influenza, high-dose, trivalent, PF 5 completed Not Available [facility] 06/04/2022 09:18:33 Pneumococcal conjugate PCV 13 4 completed Not Available [facility] 06/04/2022 09:18:33 Pneumococcal conjugate PCV20, polysaccharide QOE069 conjugate, adjuvant, PF 4 completed Alfa Cornejo MD [address] [place] [address], [place] [address], [place], [address], [facility] [employer] [facility] 03/21/2024 15:02:14 Past Encounters Encounter ID Performer Location Encounter Start Date Encounter Closed Date Diagnosis/Indication Diagnosis SNOMED-CT Code Diagnosis ICD10 Code Diagnosis Note [id number] Alfa Cornejo MD [facility] Internal Med [facility] [address], [facility] [address] [place] [address] 07/18/2020 00:00:00 07/18/2020 14:47:24 [id number] Alfa Cornejo MD [facility] Internal Med [facility] [address], [facility] [address] [place] [address] 11/14/2020 00:00:00 11/14/2020 14:57:01 [id number] Alfa Cornejo MD [facility] Internal Med [facility] [address], [address] [address] 03/13/2021 00:00:00 03/13/2021 15:33:37 [id number] Alfa Cornejo MD [facility] Internal Med [address] [address] 04/10/2021 00:00:00 04/10/2021 12:17:16 [id number] MD ELANA Cortez[facility] [address] [facility] [address] [place] [address] 04/15/2021 00:00:00 04/15/2021 10:20:22 [id number] Alfa Cornejo MD [facility] Internal Med [address] [address] 07/17/2021 00:00:00 07/17/2021 15:54:48 [id number] MD ELANA LopezS[facility] E[facility] [address] [place] [address] 09/24/2021 00:00:00 09/24/2021 14:43:29 [id number] Alfa Cornejo MD [facility] Internal Med [address] [address] 11/20/2021 00:00:00 11/20/2021 15:08:50 [id number] Alfa Cornejo MD [facility] Internal Med [address] [address] 03/26/2022 00:00:00 03/26/2022 15:17:52 [id number] Alfa oCrnejo MD [facility] Internal Med [address] [address] 06/09/2022 16:35:41 06/09/2022 17:23:47 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 G31.84 Hyperlipidemia 02142642 E78.5 Essential hypertension 42583363 I10 Type 2 erik betes mellitus without complication 746696470 E11.9 [id number] Alfa Cornejo MD [facility] Internal Med [address] [address] 07/23/2022 15:20:26 07/23/2022 15:57:35 Essential hypertension 06448585 I10 Type 2 erik betes mellitus without complication 769103363 E11.9 Hyperlipidemia 83699923 E78.5 Mild neuro cognitive disorder 432497482 G31.84 [id number] Alfa Cornejo MD [facility] Internal Med [place] [address] [address] 11/20/2022 11:52:56 11/20/2022 12:15:51 Essential hypertension 36363574 I10 Hyperlipidemia 80750709 E78.5 Type 2 erik betes mellitus without complication 923490247 E11.9 Cobalamin deficiency 190 331952 E53.8 [id number] Alfa Cornejo MD [facility] Internal Med [place] [address] [address] 03/12/2023 11:32:54 03/12/2023 12:01:16 Essential hypertension 35042410 I10 Hyperlipidemia 88848890 E78.5 Type 2 erik betes mellitus without complication 909829543 E11.9 Dementia 07889366 F03.90 Vitamin D deficiency 347 03778 E55.9 [id number] Alfa Cornejo MD [facility] Internal Med [address] [address] 07/20/2023 14:38:05 07/20/2023 15:18:26 Essential hypertension 50068010 I10 Hyperlipidemia 54190776 E78.5 Dementia 21374755 F03.90 Type 2 erik betes mellitus without complication 390051096 E11.9 [id number] Alfa Cornejo MD [facility] Internal Med [place] [address] [address] 11/23/2023 14:24:23 11/23/2023 15:13:32 Adult health examination 527115704 Z00.00 Screening for disorder 940522959 Z13.9 Essential hypertension 85928605 I10 Dementia 25093057 F03.90 Type 2 erik betes mellitus without complication 859481686 E11.9 Hyperlipidemia 62409717 E78.5 [id number] Alfa Cornejo MD [facility] Internal Med [place] [address] [facility] [address] [place] [address] 03/21/2024 14:37:00 03/21/2024 15:15:40 Administration of pneumococcal vaccine 68302557 Z23 Essential hypertension 26157897 I10 Hyperlipidemia 28484030 E78.5 Type 2 erik betes mellitus without complication 256153853 E11.9 Dementia 31115388 F03.90 [id number] Alfa Cornejo MD [facility] Primary Care [facility] [address] [facility] [address] [place] [address] 07/26/2024 14:48:20 07/26/2024 15:39:33 Essential hypertension 74179473 I10 Hyperlipidemia 64217244 E78.5 Type 2 erik betes mellitus 75385314 E11.9 Trigger fi nger of right hand 5213666734 7528735 M65.30 Dementia 36402940 F03.90 Health Concerns Section Related Observation LastModified by Organization Detai ls LastModified Time None Recorded Concern Status LastModified by Organization Details LastModified Time None Recorded Advance Directives Directive Y: Payers Encounter Date Sequence Insurance Name Policy Number Policy Arthur Covered Member ID Arthur Member ID Guarantor Name 03/12/2023 1 [employer] (MEDICARE REPLACEMENT/A DVANTAGE - PPO) Claudia Hernandez [id number] Claudia Hernandez 07/20/2023 1 [employer] (MEDICARE REPLACEMENT/A DVANTAGE - PPO) Claudia Hernandez [id number] Claudia Hernandez 11/23/2023 1 [employer] (MEDICARE REPLACEMENT/A DVANTAGE - PPO) Claudia Hernandez [id number] Claudia Hernandez 03/21/2024 1 [employer] (MEDICARE REPLACEMENT/A DVANTAGE - PPO) Claudia Hernandez [id number] Claudia Hernandez 07/26/2024 1 [employer] (MEDICARE REPLACEMENT/A DVANTAGE - PPO) Claudia Hernandez [id number] Claudia Hernandez Notes Date Note Type Note Provider Name and Address Organization Details Recorded Time text/html Patient Name: Claudia MaryDate Of Service: March ( 03.12.2023 ): 1940 [...] Systemic Symptoms:none Medication Reconciliation: from medication list. Psypiivlyoy16/16/2023: CT scan of the brain without contrast [...] lesions. The last HAIC was DCCT HAIC: 6.3 Calculated MB mg%. Average blood [...] Once DailyADRs List Reviewed 03/12/2023Shellfish UnknownVaccination and Zpxijzmhdndi3450-51 Rflxmguxi2439-17 Covid Hrthpi9614-44 Covid Booster Yovbki8106-72 Tqgtrglvh5282-03 Prevnar 13 GcSurgical HistoryBladder Stone, Vaginal Hysterectomy, Lumpectomy Right BreastPreventative Testing Confirmed by Our Vhcjtvd3011/20/2022 HAIC 6.3 % H006/13/2022 ALBUMIN 4.6 G/DL H006/13/2022 MICRO ALBUMIN 80.9 MG/L H011/24/2019 MAMMOGRAM DEXA SCANSocial HistoryDoes not smoke or drinkFamily HistoryMother 94 infirmitiesFather 85 from DVAOn brother and sister both living. Brother has a hx of CAD and CABG. Sister in good health Alfa Cornejo MD [address] [facility] [address], [place], [address], [facility] [employer] [facility] [employer] 03/12/2023 11:56:19 4 text/html Patient Name: Claudia [...] Systemic Symptoms:none Medication Reconciliation: from medication list. Bsrpduubire18/16/2023: CT scan of the brain without contrast [...] good Renal Protection: starting on a calcium jimy Lipid management: statins Urinary microalbumin: A1 . [...] Adverse Drug Reactions ReviewedShellfish Unknown Vaccination and Knyadrwofbky6497-73 Yxkjluisx1654-08 Covid Qvtjgj9945-63 Covid Booster Sofgcr3574-60 Lhydpdpps1513-19 Prevnar 13 Surgical Xbfhhgv8664-01 Bladder Csiae1857-06 Vaginal Bgtlodbuihyg2346-30 Lumpectomy Right Breast Preventative Testing( ) 07/29/2023 [...] in good health Alfa Cornejo MD [address] [facility], [place], [address], [facility] [employer] 11/23/2023 15:08:34 4 text/html Patient Name: Claudia [...] Systemic Symptoms:none Medication Reconciliation: from medication list. Tyiuzogtjlk56/16/2023: CT scan of the brain without contrast [...] good Renal Protection: starting on a calcium jimy Lipid management: statins Urinary microalbumin: A1 . [...] and Immunization( ) 2016- PREVNAR 13 GC(X) 2022-01 INFLUENZA( ) 2019-02 PNEUMOVAX( ) 2024-03 PREVNAR 20(X) 2021-01 COVID PFIZER(X) 2021-01 COVID BOOSTER PFIZER Surgical Zswvzgh8967-94 Bladder Ibmtk1317-51 Vaginal Xjgttfdqiclv5381-44 Lumpectomy Right Breast Preventative Testing( ) 11/23/2023 [...] 156 150-400 X10'3/UL Alfa Cornejo MD [address] [facility] [address], [place], [address], [place] [facility] [employer] [facility] 03/21/2024 15:08:42 5 text/html Patient Name: Claudia Kraus Of Service: Thursday ( 07.26.2024 ): 1940 Age: 83 Vital Signs:Blood Pressure: Sitting Rt. Arm 128/60Pulse: Sitting 78 /min and RegularRespiratory Rate: 16Height 62 in or 1.6 mWeight 122 lb or 55.3 kgBMI 22.3Temperature: 97 F or 36.1 CPulse Oximetry: 96 % at rest on no oxygen Chief Complaint: Addressed in HPI Problems or conditions discussed in the HPI were the only ones reviewed during the encounter.Only social and family history addressed in the HPI were reviewed during this encounter. Attendant(s): DaughterConstitutional and Systemic Symptoms:none Medication Reconciliation: from medication list. History of Present Illness #1. Essential Hypertension: [...] and Norvasc. #2. Type II Hypercholesterolaemia: Currently not taking medication. No interval complaints of any muscle pain [...] non healing lesions. The last HAIC was No. CGM: 100-115 mg%. Average blood sugars several times a week. Checking sugars : Metformin and Sulfonylureas. Medication Types Include: none Secondary complications include none. Macro-vascular complications include Glimepiride and Glucophage. Therapy reviewed regarding diabetic management and include good Compliance: Calcium Jimy Renal Protection: statins Lipid management: A1 Urinary microalbumin: has seen eye doctor within the last year . Ophthalmological: Good Control 6.2 - 7.0. Control: Trigger finger on the right ring finger. #4. Trigger finger right ring finger:#5. Mild dementia clinically stable no significant progression. Current taking Aricept 5 mg daily. Active Medication ListEscitalopram 5 MG TABLET One [...] ) 2018- PNEUMOVAX( ) 2023- PREVNAR 20(X) 2020- COVID PFIZER(X) 2020- COVID BOOSTER PFIZER Surgical Avhrcaf9130-60 Bladder Sstwo8533-46 Vaginal Baxaexrwljnr5899-70 Lumpectomy Right Breast Preventative Testing( ) 11/23/2023 Albumin 3.9 G/DL( ) 11/23/2023 HAIC 6.6 % H( ) 06/13/2022 Micro Albumin 80.9 MG/L H( ) 11/24/2019 Mammogram( ) 11/24/2019 DEXA Scan 11/23/2021 Social HistoryDoes not smoke or drink Family HistoryMother 94 infirmitiesFather 85 from CVAOn brother and sister both living. Brother has a hx of CAD and CABG. Sister in good health Active Medication ListEscitalopram 5 MG TABLET One DailyVitamin E 400 IU DailyVitamin D 1000 IU DailyGlucophage 500 MG One Twice A DayLipitor 10 MG TABLET, FILM COATED DailyNorvasc 10 MG (TABLET - ORAL) DailyGlimepiride 1 MG TABLET QdAricept 5 MG TABLET, FILM COATED Once Daily Adverse Drug Reactions ReviewedShellfish Unknown Vaccination and Immunization( ) 2016- PREVNAR 13 GC(X) 2022-01 INFLUENZA( ) 2019-02 PNEUMOVAX( ) 2024-03 PREVNAR 20(X) 2021-01 COVID PFIZER(X) 2021-01 COVID BOOSTER PFIZER Surgical Rpkauun1364-47 Bladder Qclow2350-36 Vaginal Mpkhvwebfcud5167-43 Lumpectomy Right Breast Preventative Testing( ) 11/23/2023 [...] 3.5-5.1 MMOL/LGLUCOSE 134 70-99 MG/DLBUN 37 8-19 MG/DLCREATININE 0.97 0.66-1.25 MG/DLGFR 55ALKALINE PHOSPHATASE 55 38-126 U/LALANINE AMINOTRANSFERASE 18 0-35 U/LASPARTATE AMINOTRANSFERASE 24 15-37 U/LBILIRUBIN, TOTAL 0.30 0.20-1.30 MG/DLHEMOGLOBIN A1C Date: 11/23/2023HA1C 6.6 4.0-6.0 %LIPID PANEL Date: 4CHOLESTEROL 107 140-199 MG/DLTRIGLYCERIDES 149 0-150 MG/DLHDL CHOLESTEROL 49 40- MG/DLLDL CHOLESTEROL, CALCULATED 28 0-130 MG/DL Alfa Cornejo MD [address], [facility] [address], [place], [address], [place] [facility] 07/26/2024 15:28:07 OBGyn Episode No OBEpisode recorded.
--- OUTSIDE RECORDS SUMMARY | 2024-09-11 17:43 | XMS_ITS | CONTINUITY OF CARE DOCUMENT ---
Author Name sotero bey Address Unknown Organization [facility] Address [address] [facility] [address] [place] [address] Phone [phone] Care Team Providers Care Video And Sound Recorder Name Role Phone Sreekanth FRASER, Lyudmila Unavailable PAWAN FORMAN MD Unavailable [phone] PAWAN FORMAN MD Unavailable [phone] PROBLEMS Condition Status Date Provider Notes Essential hypertension active Lyudmila Stack MD Diabetes mellitus, type 2 active Lyudmila murguia MD Dizziness- sinus carrie on ho lter , nl carotids 04/27 active Lyudmila Stack MD Chest discomfort nl echo , s tress nuclear 04/2021 active Lyudmila Stack MD Near syncope and fall active Lyudmila Ortiz ENCOUNTERS Date Type Provider Location Encounter Diag nosis - In-person encounter Office Visit Lyudmila Stack MD [facility] - In-person encounter Office Visit Lyudmila Stack MD [facility] - In-person encounter Office Visit Lyudmila Stack MD [facility] Dizziness- sinus carrie on holter , nl carotids 04/27Chest discomfort nl echo , stress nuclear 04/2021 - In-person encounter Office Visit Lyudmila Stack MD [facility] Essential hypertensionDiabetes mellitus, type 2Dizziness- sinus carrie on holter , nl carotids 04/27Chest discomfort nl echo , stress nuclear 04/2021Near syncope and fall VITAL SIGNS Date Observation Value Provider Body Mass Index (Ratio) 21.08 kg/m2 Ricky Sarmientoi blood pressure, cuff size large Vt denton [place] blood pressure, diastolic 84 mm[Hg] Vt denton [place] blood pressure, systolic 148 mm[Hg] [facility] helle [place] oxygen saturation, oximetry 99 % Riddhi [place] pulse rate 89 /min Riddhi Gonzáles angel respiratory rate E&M 16 /min Racheal blackwell [place] weight E&M 119 [lb_av] Riddhi Gonzáles angel height E&M 63 [in_i] Riddhi Eliecer ortiz Body Mass Index (Ratio) 21.25 kg/m2 Deshaun Flores blood pressure, cuff size small Vt denton [place] blood pressure, diastolic 90 mm[Hg] Vt denton [place] blood pressure, systolic 170 mm[Hg] [facility] [place] oxygen saturation, oximetry 98 % Riddhi [place] respiratory rate E&M 51 /min Racheal blackwell [place] pulse rate 16 /min Riddhi Eliecer ortiz [...] Former smoker Riddhi [facility] social history reviewed E&M revi ewed - no changes required Ricky Negrete social history reviewed E&M revi ewed - no changes required Esther Flores social history E&M S moking History: Narinder bolton is a former smoker. Esther Flores cigarette use yes Riddhi Maldonado nd smoking status Former smoker Riddhi [facility] [place] [place] social history E&M S moking History: Narinder bolton is a former smoker. Ricky Negrete social history reviewed E&M revi ewed - no changes required Ricky Negrete cigarette use yes Tonja Coats smoking status Former smoker Tonja Coats INSURANCE PROVIDERS Payer name Policy type / Coverage type [place] red green party ID HUMANA PPO O [id number] [facility] Go Try It On [id number] ADVANCE DIRECTIVES Name Date DISCUSSED - NO DECISION MADE TREATMENT PLAN Date Name Performer [id number],S, Ricky Ahmedza i [id number],B, Ricky Ahmedza i [id number],S, Ricky Ahmedza i [id number],S, Ricky Ahmedza i [id number],B, Ricky Ahmedza i [id number],B, Lyudmila Stack MD [id number],S, Esther Flores [id number],W, Esther Flores [id number],S, Esther Flores [id number],S, Esther Flores [id number],S, Ricky Ahmedza i [id number],S, Ricky Ahmedza i [id number],S, Ricky Ahmedza i [id number],S, Ricky Ahmedza i [id number],S, Ricky Ahmedza i Cardiology Ricky Ahmedzai Cardiology [...]
[2024-09-11 17:54] VITALS: BP 178/67; PULSE 73; RESP 16; TEMP 36.8; O2SAT 97
[2024-09-11 18:02] LABS: Glucose Point of Care 143 mg/dl (65-105)
[2024-09-11 18:57] VITALS: PULSE 73; RESP 20; O2SAT 100
--- NOTE | 2024-09-11 20:42 | PC.NURSE ---
Pt left without being seen for provider. Pt was sick of waiting for doctor and believes her MYLES was d/t her diabetes/not eating all day. Pt was A&Ox4 upon leaving and understood risks for leaving. Pt stated she would return if symptoms don't subside or get worse. Pt had steady gait and was in NAD walking out.
--- OUTSIDE RECORDS SUMMARY | 2024-09-11 21:07 | XMS_ITS | CONTINUITY OF CARE DOCUMENT ---
Author Name sotero bey Address Unknown Organization [facility] Address [address] [facility] [address] [place] [address] Phone [phone] Care Team Providers Care Professor Of Exercise Science Name Role Phone Sreekanth FRASER, Lyudmila Unavailable [phone] PAWAN FORMAN MD Unavailable PAWAN FORMAN MD Unavailable PROBLEMS Condition Status Date Provider Notes Essential [...] In-person encounter Office Visit Lyudmila Stack MD [facility] - In-person encounter Office Visit Lyudmila Stack MD [facility] - In-person encounter Office Visit Lyudmila Stack MD [facility] Dizziness- sinus carrie on holter , nl carotids 04/27Chest discomfort nl echo , stress nuclear 04/2021 - In-person encounter Office Visit Lyudmila Stack MD [facility] Essential hypertensionDiabetes mellitus, type 2Dizziness- sinus carrie on holter , nl carotids 04/27Chest discomfort nl echo , stress nuclear 04/2021Near syncope and fall VITAL SIGNS Date Observation Value Provider Body Mass Index (Ratio) 21.08 kg/m2 Ricky Sarmientoi blood pressure, cuff size large Ms denton [place] blood pressure, diastolic 84 mm[Hg] Ms denton [place] blood pressure, systolic 148 mm[Hg] [facility] helle [place] oxygen saturation, oximetry 99 % Riddhi [place] pulse rate 89 /min Riddhi Gonzáles angel respiratory rate E&M 16 /min Racheal blackwell [place] weight E&M 119 [lb_av] Riddhi Gonzáles angel height E&M 63 [in_i] Riddhi Eliecer ortiz Body Mass Index (Ratio) 21.25 kg/m2 Deshaun Flores blood pressure, cuff size small Ms denton [place] blood pressure, diastolic 90 mm[Hg] Ms denton [place] blood pressure, systolic 170 mm[Hg] [facility] [place] oxygen saturation, oximetry 98 % Riddhi [place] respiratory rate E&M 51 /min Racheal blackwell [place] pulse rate 16 /min Riddhi Eliecer ortiz [...] Negrete metformin 1,000 mg tablet active Ricky Crowedrzaluis amlodipine 10 mg tablet active Take 1 [...] nd smoking status Former smoker Riddhi [facility] social history reviewed E&M revi ewed - no changes required Ricky Negrete social history reviewed E&M revi ewed - no changes required Esther Flores social history E&M S moking History: Narinder bolton is a former smoker. Esther Flores cigarette use yes Riddhi Maldonado nd smoking status Former smoker Riddhi [facility] social history E&M S moking History: Narinder bolton is a former smoker. Ricky Negrete social history reviewed E&M revi ewed - no changes required Ricky Negrete cigarette use yes Tonja Coats smoking status Former smoker Tonja Coats INSURANCE PROVIDERS Payer name Policy type / Coverage type [place] red alliance party ID HUMANA PPO O [id number] [facility] 333 [id number] ADVANCE DIRECTIVES Name Date DISCUSSED - NO DECISION MADE TREATMENT PLAN Date Name Performer [id number],S, Ricky Ahmedza i [id number],B, Ricky Ahmedza i [id number],S, Ricky Ahmedza i [id number],S, Ricky Ahmedza i [id number],B, Ricky Ahmedza i [id number],B, Lyudmila Stack MD [id number],S, Esther Flores [id number],W, Esther Flores [id number],S, Esther Flores [id number],S, Esther Flores [id number],S, Ricky Ahmedza i [id number],S, Ricky Ahmedza i [id number],S, Ricky Ahmedza i [id number],S, Ricky Ahmedza i [id number],S, Ricky Ahmedza i Cardiology Ricky Ahmedzai Cardiology [...]
== END 2024-09-11 21:27 | disposition left against medical advice (07) ==
LOC: ANHED 21:05
PROVIDERS: Emergency Provider Emergency Medicine; PCP Internal Medicine
DX: R42 Dizziness and giddiness (principal)
CPT/HCPCS: 82948; 99199